=== PATIENT | female | born 1965 | race Caucasian/White ===

== ENCOUNTER 2016-12-30 17:53 | Emergency (ER) | payer SELFPAY ==
[2016-12-30] MEDS ORDERED: LIDOCAINE 1%/EPINEPHRINE INJ 20 ML VIAL INJ ONE (18:40)
[2016-12-30] MEDS ORDERED: DIPH/PERTUSS(ACELL)/TETANUS VAC/PF 0.5 ML SYR (>=10YO) IM ONE (18:40)
[2016-12-30] MEDS ORDERED: HYDROCODONE/ACETAMINOPHEN 5-325 MG TABLET PO ONE (19:23)
--- NOTE | 2016-12-30 19:31 | ER Document Report ---
ED General - General Chief Complaint: Fall Stated Complaint: CHIN LACERATION Time Seen by Provider: 12/30/16 18:22 Notes: 51-year-old female tripped and fell and landed on her chin at home approximately 4 hours prior to arrival. Denies neck pain, loss of consciousness , headache, nausea, vomiting, blurred vision, dizziness or any other alteration in mental status. Now complains of moderate throbbing pain to her chin. Took one half of a 5 mg Dittmer prior to arrival. Admits to history of right shoulder fracture 1 month ago, denies any change to her right shoulder pain. She does take Xarelto, is concerned by how much her chin bled, states that there was a large amount of blood on the bed after she laid down. States the blood has stopped now. Last tetanus shot was greater than 5 years ago, she does not remember exactly when. TRAVEL OUTSIDE OF THE [place] IN LAST 30 DAYS: Yes - Related Data Allergies/Adverse Reactions: No Known Allergies Allergy (Verified 12/30/16 17:56) Past Medical History - General Information source: Patient - Social History Smoking Status: Never Smoker Chew tobacco use (# tins/day): No Frequency of alcohol use: Daily Drug Abuse: None Lives with: Alone Family History: Reviewed & Not Pertinent - Past Medical History Cardiac Medical History: Reports: Hx DVT - Left Denies: Hx Coronary Artery Disease, Hx Heart Attack, Hx Hypertension Pulmonary Medical History: Denies: Hx Asthma, Hx Bronchitis, Hx COPD, Hx Pneumonia, Hx Tuberculosis Neurological Medical History: Denies: Hx Cerebrovascular Accident, Hx Seizures Renal/ Medical History: Reports: Hx Ovarian Cysts - Currently Occuring Musculoskeltal Medical History: Reports Hx Arthritis - Hips R the worst Past Surgical History: Reports: Hx Bowel Surgery - gastric bypass, Hx Section - x2, Hx Gastric Bypass Surgery, Hx Gynecologic Surgery - DNC, Hx Herniorrhaphy, Hx Tonsillectomy. Denies: Hx Hysterectomy, Hx Pacemaker - Immunizations Hx Diphtheria, Pertussis, Tetanus Vaccination: No Review of Systems - Review of Systems Constitutional: Chills EENT: No symptoms reported Skin: See HPI - Chin laceration -: Yes All other systems reviewed and negative Physical Exam - Vital signs Vitals: Temp Pulse Resp BP Pulse Ox 97.6 F 115 H 32 H 129/95 H 97 12/30/16 17:56 12/30/16 17:56 12/30/16 17:56 12/30/16 17:56 12/30/16 17:56 Interpretation: Tachycardic, Tachypneic - Notes Notes: GENERAL: Alert, shaking, appears anxious, states that she is cold and nervous. HEAD: 3 cm laceration to her chin, gaping but linear. EYES: Pupils equal, round and reactive to light, extraocular movements intact. ENT: Oral mucosa moist, tongue midline. NECK: Full range of motion, supple, trachea midline. No midline bony tenderness to palpation. LUNGS: no respiratory distress. EXTREMITIES: No cyanosis. NEUROLOGICAL: Alert and oriented x3, cranial nerves II through XII grossly intact. PSYCH: Normal mood, normal affect. SKIN: Warm, Dry Course - Re-evaluation Re-evalutation: 12/30/16 20:03 Patient initially denying any dizziness or headache, now complaining of dizziness and headache as well as continuing pain in her right shoulder. Continues to deny any change in her right shoulder pain from baseline. I did give patient a Dittmer 5/325 which is what she usually takes at home for her right shoulder injury that is a month old and currently being followed by [facility]. Given the dizziness and headache, the fact that she hit her head and is on Xarelto patient will have a CAT scan of the head performed. Tetanus status will be updated and chin laceration has been repaired without difficulty. 12/30/16 22:10 Patient now vomiting, consistent with concussion, CT scan of head is negative for any bleeding. There is a nasal bone fracture that when the patient is informed of this patient states this is old and she knew about it, it is approximately 1 month old. No change in her neurologic exam, no concern for bleed that has developed after the CAT scan was performed about an hour ago. Patient will be treated with Zofran and discharged home. Counseled about avoiding sedating medications. - Vital Signs Vital signs: Temp Pulse Resp BP Pulse Ox 97.6 F 115 H 32 H 129/95 H 97 12/30/16 17:56 12/30/16 17:56 12/30/16 17:56 12/30/16 17:56 12/30/16 17:56 - Laboratory Result Diagrams: 12/30/16 19:30 Laboratory results interpreted by me: 12/30/16 19:30 RBC 5.50 H MCH 25.9 L RDW 19.7 H Monocytes % 14.8 H Procedures - Laceration/Wound Repair chin Time completed: 19:45 Wound length (cm): 4 Wound's Depth, Shape: Superficial, Linear Laceration pre-procedure: Sterile PPE donned, Sterile drapes applied, Shur- Clens applied Anesthetic type: 1% Lidocaine w/epi Volume Anesthetic (mLs): 3 Wound explored: Clean, No foreign body removed Wound Debrided: Minimal Wound Repaired With: Sutures Suture Size/Type: 5:0, Ethilon Number of Sutures: 3 Layer Closure?: No Post-procedure NV exam normal: Yes Complications: No Discharge - Discharge Clinical Impression: Fall at home Qualifiers: Encounter type: initial encounter Qualified Code(s): W19.XXXA - Unspecified fall, initial encounter; Y92.099 - Unspecified place in other non-institutional residence as the place of occurrence of the external cause; Y92.099 - Unspecified place in other non-institutional residence as the place of occurrence of the external cause Chin laceration Qualifiers: Encounter type: initial encounter Qualified Code(s): S01.81XA - Laceration without foreign body of other part of head, initial encounter Nasal bones, closed fracture Qualifiers: Encounter type: subsequent encounter Fracture healing: with delayed healing Qualified Code(s): S02.2XXG - Fracture of nasal bones, subsequent encounter for fracture with delayed healing Hypertension Qualifiers: Hypertension type: essential hypertension Qualified Code(s): I10 - Essential ( primary) hypertension Condition: Stable Disposition: HOME, SELF-CARE Instructions: Laceration Care ([facility]), Head Injury Precautions ([facility]) Additional Instructions: Have the stitches removed in approximately 5 days. Forms: Elevated Blood Pressure Referrals: YOMAIRA GOODRICH MD [ACTIVE STAFF] - Follow up in 3-5 days
[2016-12-30 19:56] LABS: ABSOLUTE LYMPHOCYTES (AUTO) 1.5 10^3/uL (0.5-4.7); ABSOLUTE MONOCYTES (AUTO) 0.8 10^3/uL (0.1-1.4); ABSOLUTE NEUT (AUTO) 3.4 10^3/uL (1.7-8.2); BASOPHILS % (AUTO) 0.5 % (0-2); EOSINOPHILS % (AUTO) 0.1 % (0-6); HEMATOCRIT 44.3 % (36.0-47.0); HEMOGLOBIN 14.3 g/dL (12.0-15.5); HGB HCT DIFFERENCE -1.4; LYMPHOCYTES % (AUTO) 25.4 % (13-45); MEAN CORPUSCULAR HEMOGLOBIN 25.9 pg (27.0-33.4); MEAN CORPUSCULAR HGB CONC 32.2 g/dL (32.0-36.0); MEAN CORPUSCULAR VOLUME 81 fl (80-97); MONOCYTES % (AUTO) 14.8 % (3-13); RED CELL DISTRIBUTION WIDTH 19.7 % (11.5-14.0); SEGMENTED NEUTROPHILS % (AUTO) 59.2 % (42-78); WHITE BLOOD COUNT 5.7 10^3/uL (4.0-10.5)
--- NOTE | 2016-12-30 21:26 | RADIOLOGY REPORT (SQ) ---
EXAM DESCRIPTION: CT HEAD WITHOUT COMPLETED DATE/TIME: 12/30/2016 8:53 pm REASON FOR STUDY: fell, hit head on xarelto, dizzy COMPARISON: CT brain 02/22/2014 TECHNIQUE: Axial images acquired through the brain without intravenous contrast. Images reviewed wi th bone, brain and subdural windows. Images stored on PACS. All CT scanners at this facility use dose modulation, iterative reconstruction, and/or weight based d osing when appropriate to reduce radiation dose to as low as reasonably achievable (ALARA). [facility]: Dose Right [facility]: CareDose [facility]: Dose Right [facility]: Teradose 4D [facility]: Smart Rormix RADIATION DOSE: CT Rad equipment meets quality standard of care and radiation dose reduction techniq ues were employed. CTDIvol: 64.6 mGy. DLP: 1163 mGy-cm. mGy. LIMITATIONS: None. FINDINGS: VENTRICLES: Normal size and contour. CEREBRUM: No masses. No hemorrhage. No midline shift. No evidence for acute infarction. Normal gra y/white matter differentiation. No areas of low density in the white matter. CEREBELLUM: No masses. No hemorrhage. No alteration of density. No evidence for acute infarction. EXTRAAXIAL SPACES: No fluid collections. No masses. ORBITS AND GLOBE: No intra- or extraconal masses. Normal contour of globe without masses. CALVARIUM: No fracture. PARANASAL SINUSES: No fluid or mucosal thickening. SOFT TISSUES: Minimal left parietal scalp hematoma without underlying skull fracture or acute intracr anial hemorrhage. OTHER: Bilateral nasal bone fractures are present on axial images 9 and 10. IMPRESSION: Bilateral nasal bone fractures. No acute intracranial changes. EVIDENCE OF ACUTE STROKE: NO. COMMENT: Quality ID # [id number]: Final reports with documentation of one or more dose reduction techniques (e.g., Automated exposure control, adjustment of the mA and/or kV according to patient size, use of iterative reconstruction technique) TECHNICAL DOCUMENTATION: JOB ID: [id number] [employer]- All Rights Reserved
[2016-12-30] MEDS ORDERED: ONDANSETRON 4 MG TAB.RAPDIS PO ONE (22:10)
[2016-12-30] MEDS ORDERED: ONDANSETRON ODT 4 MG TAB (6 TAB/DSPK) PO PRN (22:16)
[2016-12-30 22:56] VITALS: BP 142/105
== END 2016-12-30 22:56 | disposition home or self-care (01) ==
LOC: ER 17:53
PROC: 0HQ1XZZ Repair Face Skin, External Approach (ICD-10-PCS; principal; 2016-12-30)
DX: S02.2XXG Fracture of nasal bones, subsequent encounter for fracture with delayed healing (principal); S01.81XA Laceration without foreign body of other part of head, initial encounter; I10 Essential (primary) hypertension; Z79.01 Long term (current) use of anticoagulants; W19.XXXA Unspecified fall, initial encounter; Y92.099 Unspecified place in other non-institutional residence as the place of occurrence of the external cause
CPT/HCPCS: 99284; 90471; 36415; 85025; 70450; 90715; 12013; S0119; J3490

== ENCOUNTER 2018-02-11 16:47 | Emergency (ER) | payer SELFPAY ==
[2018-02-11] MEDS ORDERED: NORMAL SALINE 1000 ML 1,000 ML IV ONE (17:46)
[2018-02-11] MEDS ORDERED: FENTANYL CITRATE INJ/PF 100 MCG/2 ML AMPUL IV ONE (17:47)
[2018-02-11] MEDS ORDERED: ONDANSETRON HCL INJ/PF 4 MG/2 ML SDV IV ONE (17:47)
--- NOTE | 2018-02-11 17:48 | ER Document Report ---
ED Medical Screen (RME) - General Chief Complaint: Abdominal Pain Stated Complaint: VOMITING Time Seen by Provider: 02/11/18 17:46 TRAVEL OUTSIDE OF THE [place] IN LAST 30 DAYS: No - Related Data Allergies/Adverse Reactions: No Known Allergies Allergy (Verified 02/11/18 16:47) Past Medical History - Past Medical History Cardiac Medical History: Reports: Hx DVT - Left Denies: Hx Coronary Artery Disease, Hx Heart Attack, Hx Hypertension Pulmonary Medical History: Denies: Hx Asthma, Hx Bronchitis, Hx COPD, Hx Pneumonia, Hx Tuberculosis Neurological Medical History: Denies: Hx Cerebrovascular Accident, Hx Seizures Renal/ Medical History: Reports: Hx Ovarian Cysts - Currently Occuring. Denies: Hx Peritoneal Dialysis Musculoskeltal Medical History: Reports Hx Arthritis - Hips R the worst Past Surgical History: Reports: Hx Bowel Surgery - gastric bypass, Hx Section - x2, Hx Gastric Bypass Surgery, Hx Gynecologic Surgery - DNC, Hx Herniorrhaphy, Hx Tonsillectomy. Denies: Hx Hysterectomy, Hx Pacemaker - Immunizations Hx Diphtheria, Pertussis, Tetanus Vaccination: No Physical Exam - Vital signs Vitals: Temp Pulse Resp BP Pulse Ox 98.6 F 101 H 22 H 186/110 H 97 02/11/18 17:00 02/11/18 17:00 02/11/18 17:00 02/11/18 17:00 02/11/18 17:00 Course - Re-evaluation Re-evalutation: 02/11/18 17:48 52-year-old status post gastric bypass with intractable vomiting horrible abdominal pain making it unable to her tolerate her normal antacids. I have seen and evaluated this patient in rapid medical screening exam, there will require reexamination and further assessment with possible diagnostics and disposition determination by secondary provider. - Vital Signs Vital signs: Temp Pulse Resp BP Pulse Ox 98.6 F 101 H 22 H 156/102 H 97 02/11/18 17:00 02/11/18 17:00 02/11/18 17:00 02/11/18 17:05 02/11/18 17:00
[2018-02-11] MEDS ORDERED: FAMOTIDINE INJ/PF 20 MG/2 ML SDV IV ONE (18:22)
[2018-02-11] MEDS ORDERED: MORPHINE SULFATE 10 MG/ML INJ IV PRN (18:54)
--- NOTE | 2018-02-11 18:54 | RADIOLOGY REPORT (SQ) ---
EXAM DESCRIPTION: ACUTE ABDOMEN SERIES COMPLETED DATE/TIME: 02/11/2018 6:45 pm REASON FOR STUDY: possible obstruction COMPARISON: None. NUMBER OF VIEWS: Three views. TECHNIQUE: Frontal chest, supine abdomen and upright/decubitus abdomen radiographic images acquired. LIMITATIONS: None. FINDINGS: CHEST: Lungs clear of infiltrates. FREE AIR: None. No abnormal gas collections. BOWEL GAS PATTERN: Nonobstructive pattern. No dilated loops or air fluid levels. CALCIFICATIONS: No suspicious calcifications. HARDWARE: Status post bilateral hip total arthroplasty. SOFT TISSUES: No gross mass or suggestion of organomegaly. BONES: No acute fracture. No worrisome bone lesions. OTHER: IVC filter. Left iliac vascular stent IMPRESSION: Nonobstructive pattern of bowel gas with scattered gas present to the descending colon. No free air in the abdomen. TECHNICAL DOCUMENTATION: JOB ID: [id number] [employer]- All Rights Reserved Reading location - IP/workstation name: [email or web address]
[2018-02-11] MEDS ORDERED: METOCLOPRAMIDE HCL INJ/PF 10 MG/2 ML SDV IV ONE (18:55)
[2018-02-11] MEDS ORDERED: SUCRALFATE 1 GM TABLET PO ONE (18:55)
[2018-02-11] MEDS ORDERED: LIDOCAINE 2% VISCOUS SOLN 20 ML UDCUP PO ONE (18:55)
[2018-02-11] MEDS ORDERED: MAG HYDROX/AL HYDROX/SIMETH SUSP 30 ML UDCUP PO ONE (18:55)
--- NOTE | 2018-02-11 19:01 | ER Document Report ---
ED General - General Chief Complaint: Abdominal Pain Stated Complaint: VOMITING Time Seen by Provider: 02/11/18 17:46 Notes: Patient is a 52-year-old female with a past medical history of morbid obesity, gastric bypass with a history of gastric ulcers, presents with 2 days of epigastric abdominal pain, nausea and vomiting. Patient reports that she is supposed to be taking pantoprazole twice daily and has been out of this medication for the past 2 months. She states this feels very similar to when she has had exacerbations of her gastritis in the past. She is very clear to state that she has not had any hematemesis, melena or hematochezia. The pain is described as an aching, burning, constant pain in the upper abdomen. Worsened by any attempt at eating or drinking. She states that she has vomited virtually everything she has attempted to consume in the past 48 hours. She has not contacted her primary care physician regarding today's concerns. She denies fever, chest pain or shortness of breath. TRAVEL OUTSIDE OF THE [place] IN LAST 30 DAYS: No - Related Data Allergies/Adverse Reactions: No Known Allergies Allergy (Verified 02/11/18 16:47) Past Medical History - General Information source: Patient - Social History Smoking Status: Former Smoker Frequency of alcohol use: None Drug Abuse: None Lives with: Family Family History: Reviewed & Not Pertinent Patient has suicidal ideation: No Patient has homicidal ideation: No - Past Medical History Cardiac Medical History: Reports: Hx DVT - Left Denies: Hx Coronary Artery Disease, Hx Heart Attack, Hx Hypertension Pulmonary Medical History: Denies: Hx Asthma, Hx Bronchitis, Hx COPD, Hx Pneumonia, Hx Tuberculosis Neurological Medical History: Denies: Hx Cerebrovascular Accident, Hx Seizures Renal/ Medical History: Reports: Hx Ovarian Cysts - Currently Occuring. Denies: Hx Peritoneal Dialysis Musculoskeletal Medical History: Reports Hx Arthritis - Hips R the worst Past Surgical History: Reports: Hx Bowel Surgery - gastric bypass, Hx Section - x2, Hx Gastric Bypass Surgery, Hx Gynecologic Surgery - DNC, Hx Herniorrhaphy, Hx Tonsillectomy. Denies: Hx Hysterectomy, Hx Pacemaker - Immunizations Hx Diphtheria, Pertussis, Tetanus Vaccination: No Review of Systems - Review of Systems Notes: Constitutional: Negative for fever. HENT: Negative for sore throat. Eyes: Negative for visual changes. Cardiovascular: Negative for chest pain. Respiratory: Negative for shortness of breath. Gastrointestinal: Positive for epigastric abdominal pain and vomiting Genitourinary: Negative for dysuria. Musculoskeletal: Negative for back pain. Skin: Negative for rash. Neurological: Negative for headaches, weakness or numbness. 10 point ROS negative except as marked above and in HPI. Physical Exam - Vital signs Vitals: Temp Pulse Resp BP Pulse Ox 98.6 F 101 H 22 H 186/110 H 97 02/11/18 17:00 02/11/18 17:00 02/11/18 17:00 02/11/18 17:00 02/11/18 17:00 Interpretation: Hypertensive, Tachycardic Notes: PHYSICAL EXAMINATION: GENERAL: Appears uncomfortable but in no acute distress HEAD: Atraumatic, normocephalic. EYES: Pupils equal round and reactive to light, extraocular movements intact, sclera anicteric, conjunctiva are normal. ENT: nares patent, oropharynx clear without exudates. Moderately dry mucous membranes. NECK: Normal range of motion, supple without lymphadenopathy LUNGS: Breath sounds clear to auscultation bilaterally and equal. No wheezes rales or rhonchi. HEART: Regular rate and rhythm without murmurs ABDOMEN: Soft, focal tenderness to the epigastrium but no other localized areas of tenderness, normoactive bowel sounds. No guarding, no rebound. No masses appreciated. EXTREMITIES: Normal range of motion, no pitting or edema. No cyanosis. NEUROLOGICAL: No focal neurological deficits. Moves all extremities spontaneously and on command. PSYCH: Normal mood, normal affect. SKIN: Warm, Dry, normal turgor, no rashes or lesions noted. Course - Re-evaluation Re-evalutation: 02/11/18 19:00 Patient presents with epigastric abdominal pain with associated reflux symptoms most consistent with likely gastritis. Patient has a long-standing history of the same, has been off of her prescribed pantoprazole for over 2 months and has had similar presentations multiple times in the past by her own report. She has minimal epigastric abdominal tenderness on exam, no generalized tenderness, protuberance or guarding. Acute abdominal series without any evidence of perforation. Clinical history is not consistent with biliary pathology. Lipase is normal. No LFT changes. Based on history and exam, I do not suspect ACS, pulmonary embolus, SBO, mesenteric ischemia, acute pancreatitis, biliary pathology, or an abdominal aortic dissection. Will continue to treat the patient's pain and ensure that she is able to tolerate oral intake 02/11/18 21:35 Patient has had complete resolution of abdominal pain and vomiting. She is able to tolerate oral fluids without any difficulty recurrent vomiting. Repeat abdominal exam remains benign. Labs unremarkable. At this time will discharge with return precautions and follow-up recommendations. Verbal discharge instructions given a the bedside and opportunity for questions given. Medication warnings reviewed. Patient is in agreement with this plan and has verbalized un derstanding of return precautions and the need for primary care follow-up in the next 24-72 hours. - Vital Signs Vital signs: Temp Pulse Resp BP Pulse Ox 98.6 F 101 H 18 166/114 H 100 02/11/18 17:00 02/11/18 17:00 02/11/18 18:25 02/11/18 18:25 02/11/18 18:25 - Laboratory Result Diagrams: 02/11/18 19:17 02/11/18 20:35 Laboratory results interpreted by me: 02/11/18 02/11/18 19:17 20:35 WBC 10.7 H MCV 98 H RDW 18.0 H Seg Neutrophils % 88.7 H Lymphocytes % 5.6 L Absolute Neutrophils 9.5 H Glucose 112 H Total Bilirubin 1.5 H Direct Bilirubin 0.5 H Alkaline Phosphatase 215 H Lipase 338.3 H - Diagnostic Test Radiology reviewed: Image reviewed, Reports reviewed Radiology results interpreted by me: 02/11/18 21:36 Acute abdominal series, no evidence of free air or obstruction Discharge - Discharge Clinical Impression: Epigastric abdominal pain Gastritis Qualifiers: Gastritis type: unspecified gastritis Chronicity: acute Gastritis bleeding: without bleeding Qualified Code(s): K29.00 - Acute gastritis without bleeding Nausea & vomiting Qualifiers: Vomiting type: unspecified Vomiting Intractability: intractable Qualified Code(s): R11.2 - Nausea with vomiting, unspecified Condition: Good Disposition: HOME, SELF-CARE Additional Instructions: Your symptoms appear to be most consistent with stomach or upper intestinal irritation. Please begin taking your pantoprazole again as previously prescribed as well as Carafate prior to meals. You may take the Zofran that has been prescribed as needed for nausea or vomiting. You may also take medicine such as Pepto-Bismol or Tums to assist with your pain. Please return to emergency department immediately if you have worsening of your pain, shortness of breath, vomiting, become unable to exert yourself due to pain or difficulty breathing, you pass out, or have any pain that radiates into your arms, jaw, or back. Please also return if you have any additional symptoms that are concerning to you. Prescriptions: Pantoprazole Sodium 40 mg PO BID #60 tablet. Sucralfate [Carafate 1 gm Tablet] 1 gm PO ACHS #120 tablet
[2018-02-11 19:29] LABS: ABSOLUTE LYMPHOCYTES (AUTO) 0.6 10^3/uL (0.5-4.7); ABSOLUTE MONOCYTES (AUTO) 0.6 10^3/uL (0.1-1.4); ABSOLUTE NEUT (AUTO) 9.5 10^3/uL (1.7-8.2); BASOPHILS % (AUTO) 0.4 % (0-2); HEMATOCRIT 43.6 % (36.0-47.0); HEMOGLOBIN 14.9 g/dL (12.0-15.5); LYMPHOCYTES % (AUTO) 5.6 % (13-45); MEAN CORPUSCULAR HEMOGLOBIN 33.4 pg (27.0-33.4); MEAN CORPUSCULAR HGB CONC 34.1 g/dL (32.0-36.0); MEAN CORPUSCULAR VOLUME 98 fl (80-97); MONOCYTES % (AUTO) 5.3 % (3-13); PLATELET COUNT 203 10^3/uL (150-450); RED BLOOD COUNT 4.46 10^6/uL (3.72-5.28); SEGMENTED NEUTROPHILS % (AUTO) 88.7 % (42-78); TOTAL CELLS COUNTED % (AUTO) 100 %; WHITE BLOOD COUNT 10.7 10^3/uL (4.0-10.5)
[2018-02-11 21:13] LABS: ALANINE AMINOTRANSFERASE 23 U/L (9-52); ALBUMIN 4.3 g/dL (3.5-5.0); ALKALINE PHOSPHATASE 215 U/L (38-126); ANION GAP 9 (5-19); ASPARTATE AMINO TRANSFERASE 34 U/L (14-36); BILIRUBIN,DIRECT 0.5 mg/dL (0.0-0.4); BILIRUBIN,TOTAL 1.5 mg/dL (0.2-1.3); BLOOD UREA NITROGEN 17 mg/dL (7-20); CALCIUM 9.9 mg/dL (8.4-10.2); CARBON DIOXIDE 29 mmol/L (22-30); CHLORIDE 105 mmol/L (98-107); GLUCOSE 112 mg/dL (75-110); LIPASE 338.3 U/L (23-300); POTASSIUM 3.9 mmol/L (3.6-5.0); SODIUM 142.9 mmol/L (137-145); TOTAL PROTEIN 7.9 g/dL (6.3-8.2)
[2018-02-11 23:13] VITALS: BP 180/118
== END 2018-02-11 23:31 | disposition home or self-care (01) ==
LOC: ER 16:47
DX: K29.00 Acute gastritis without bleeding (principal); R10.13 Epigastric pain; R11.2 Nausea with vomiting, unspecified; Z87.891 Personal history of nicotine dependence
CPT/HCPCS: 99284; 96361; 96374; 96375; 36415; 83690; 85025; 80053; 84484; 74022; J3010; J3490; J2765; J2270; J2405; J7030; S0028

== ENCOUNTER 2018-02-13 21:42 | Emergency (ER) | payer SELFPAY ==
[2018-02-13] MEDS ORDERED: ONDANSETRON HCL INJ/PF 4 MG/2 ML SDV IV ONE (23:30)
[2018-02-13] MEDS ORDERED: MORPHINE SULFATE 10 MG/ML INJ IV ONE (23:33)
[2018-02-13] MEDS ORDERED: SUCRALFATE SUSP 1 GM/10 ML UDCUP PO ONE (23:33)
[2018-02-13] MEDS ORDERED: FAMOTIDINE INJ/PF 20 MG/2 ML SDV IV ONE (23:33)
--- NOTE | 2018-02-13 23:36 | ER Document Report ---
ED Medical Screen (RME) - General Chief Complaint: Nausea/Vomiting Stated Complaint: VOMITING Time Seen by Provider: 02/13/18 23:29 Notes: Patient is a 52-year-old female presents the emergency department complaining of left upper quadrant abdominal pain and vomiting more than 20 times today. Patient is denying any blood in her vomit. Patient states she was seen at this facility 2 days ago for same left upper quadrant pain and vomiting. Patient states she has an extensive history of stomach ulcers and gastritis. States she is supposed to be on medication for her ulcers but has not been taking it in the last 2 months. Patient states she did not get her medications filled that were prescribed to her 2 days ago. Past medical history: Gastric ulcer Medications: Currently none Allergies: None Physical examination: Generalized left upper quadrant pain upon palpation, no right upper quadrant pain, no McBurney's point tenderness. No CVA tenderness bilaterally. I have greeted and performed a rapid initial assessment of this patient. A comprehensive ED assessment and evaluation of the patient, analysis of test results and completion of the medical decision making process will be conducted by additional ED providers. TRAVEL OUTSIDE OF THE [place] IN LAST 30 DAYS: No - Related Data Allergies/Adverse Reactions: No Known Allergies Allergy (Verified 02/11/18 16:47) Past Medical History - Social History Chew tobacco use (# tins/day): No Frequency of alcohol use: None Drug Abuse: None - Past Medical History Cardiac Medical History: Reports: Hx DVT - Left Denies: Hx Coronary Artery Disease, Hx Heart Attack, Hx Hypertension Pulmonary Medical History: Denies: Hx Asthma, Hx Bronchitis, Hx COPD, Hx Pneumonia, Hx Tuberculosis Neurological Medical History: Denies: Hx Cerebrovascular Accident, Hx Seizures Renal/ Medical History: Reports: Hx Ovarian Cysts - Currently Occuring. Denies: Hx Peritoneal Dialysis Musculoskeltal Medical History: Reports Hx Arthritis - Hips R the worst Past Surgical History: Reports: Hx Bowel Surgery - gastric bypass, Hx Section - x2, Hx Gastric Bypass Surgery, Hx Gynecologic Surgery - DNC, Hx Herniorrhaphy, Hx Tonsillectomy. Denies: Hx Hysterectomy, Hx Pacemaker - Immunizations Hx Diphtheria, Pertussis, Tetanus Vaccination: No Physical Exam - Vital signs Vitals: Temp Pulse Resp BP Pulse Ox 98.7 F 93 16 193/115 H 97 02/13/18 21:54 02/13/18 21:54 02/13/18 21:54 02/13/18 21:54 02/13/18 21:54 Course - Vital Signs Vital signs: Temp Pulse Resp BP Pulse Ox 98.7 F 93 16 193/115 H 97 02/13/18 21:54 02/13/18 21:54 02/13/18 21:54 02/13/18 21:54 02/13/18 21:54
[2018-02-14 00:21] LABS: ABSOLUTE BASOPHILS # (AUTO) 0.1 10^3/uL (0.0-0.2); ABSOLUTE MONOCYTES (AUTO) 0.7 10^3/uL (0.1-1.4); ABSOLUTE NEUT (AUTO) 10.3 10^3/uL (1.7-8.2); BASOPHILS % (AUTO) 0.4 % (0-2); EOSINOPHILS % (AUTO) 0.1 % (0-6); HEMATOCRIT 50.1 % (36.0-47.0); LYMPHOCYTES % (AUTO) 8.1 % (13-45); MEAN CORPUSCULAR HEMOGLOBIN 33.9 pg (27.0-33.4); MEAN CORPUSCULAR HGB CONC 34.2 g/dL (32.0-36.0); MEAN CORPUSCULAR VOLUME 99 fl (80-97); MONOCYTES % (AUTO) 5.6 % (3-13); PLATELET COUNT 291 10^3/uL (150-450); RED BLOOD COUNT 5.06 10^6/uL (3.72-5.28); RED CELL DISTRIBUTION WIDTH 17.8 % (11.5-14.0); SEGMENTED NEUTROPHILS % (AUTO) 85.8 % (42-78); TOTAL CELLS COUNTED % (AUTO) 100 %
[2018-02-14 00:22] LABS: HEMOGLOBIN 17.1 g/dL (12.0-15.5)
[2018-02-14] MEDS ORDERED: HYDROMORPHONE HCL INJ/PF 2 MG/ML AMPULE IV ONE (01:09)
--- NOTE | 2018-02-14 01:10 | ER Document Report ---
ED GI/ - General Chief Complaint: Nausea/Vomiting Stated Complaint: VOMITING Time Seen by Provider: 02/13/18 23:29 Notes: Patient is a 52-year-old female that comes to the emergency department for chief complaint of nausea, vomiting, upper abdominal pain. She was seen 2 days ago, she states that yesterday she actually was feeling much improved, she was eating normally, however she states she started to feel nausea again, began vomiting, s he states she did not get a nausea medication. She states after that she had continuous vomiting throughout the day. She denies vomiting blood, black or bloody stools, she states that after medications from triage she feels a lot better. She was prescribed pantoprazole and Carafate, states that she has not been able to fill or start taking them yet before she started vomiting. She denies fever or chills. Past medical history of gastric bypass, peptic ulcer disease. TRAVEL OUTSIDE OF THE [place] IN LAST 30 DAYS: No - Related Data Allergies/Adverse Reactions: No Known Allergies Allergy (Verified 02/11/18 16:47) Past Medical History - General Information source: Patient - Social History Smoking Status: Never Smoker Chew tobacco use (# tins/day): No Frequency of alcohol use: None Drug Abuse: None Lives with: Family Family History: Reviewed & Not Pertinent Patient has suicidal ideation: No Patient has homicidal ideation: No - Past Medical History Cardiac Medical History: Reports: Hx DVT - Left Denies: Hx Coronary Artery Disease, Hx Heart Attack, Hx Hypertension Pulmonary Medical History: Denies: Hx Asthma, Hx Bronchitis, Hx COPD, Hx Pneumonia, Hx Tuberculosis Neurological Medical History: Denies: Hx Cerebrovascular Accident, Hx Seizures Renal/ Medical History: Reports: Hx Ovarian Cysts - Currently Occuring. D enies: Hx Peritoneal Dialysis GI Medical History: Reports: Hx Gastritis, Hx Gastroesophageal Reflux Disease Musculoskeletal Medical History: Reports Hx Arthritis - Hips R the worst Past Surgical History: Reports: Hx Bowel Surgery - gastric bypass, Hx Section - x2, Hx Gastric Bypass Surgery, Hx Gynecologic Surgery - DNC, Hx Herniorrhaphy, Hx Tonsillectomy. Denies: Hx Hysterectomy, Hx Pacemaker - Immunizations Hx Diphtheria, Pertussis, Tetanus Vaccination: No Review of Systems - Review of Systems Constitutional: No symptoms reported EENT: No symptoms reported Cardiovascular: No symptoms reported Respiratory: No symptoms reported Gastrointestinal: See HPI Genitourinary: No symptoms reported Female Genitourinary: No symptoms reported Musculoskeletal: No symptoms reported Skin: No symptoms reported Hematologic/Lymphatic: No symptoms reported Neurological/Psychological: No symptoms reported Physical Exam - Vital signs Vitals: Temp Pulse Resp BP Pulse Ox 98.7 F 93 16 193/115 H 97 02/13/18 21:54 02/13/18 21:54 02/13/18 21:54 02/13/18 21:54 02/13/18 21:54 - Notes Notes: GENERAL: Alert, interacts well. No acute distress. HEAD: Normocephalic, atraumatic. EYES: Pupils equal, round, and reactive to light. Extraocular movements intact. ENT: Oral mucosa very dry, tongue midline. Oropharynx unremarkable. Airway patent. Nares patent, no nasal septal hematoma, TM's intact. NECK: Full range of motion. Supple. Trachea midline. LUNGS: Clear to auscultation bilaterally, no wheezes, rales, or rhonchi. No respiratory distress. HEART: Regular rate and rhythm. No murmur ABDOMEN: Tenderness in the left upper quadrant and epigastric area. Minimal tenderness otherwise. No rigidity or guarding. GENITOURINARY: Deferred EXTREMITIES: Moves all 4 extremities spontaneously. No edema, normal radial and dorsalis pedis pulses bilaterally. No cyanosis. BACK: no cervical, thoracic, lumbar midline tenderness. No saddle anesthesia, normal distal neurovascular exam. NEUROLOGICAL: Alert and oriented x3. Normal speech. [cranial nerves II through XII grossly intact]. PSYCH: Normal affect, normal mood. SKIN: Warm, dry, normal turgor. No rashes or lesions noted. Course - Re-evaluation Re-evalutation: Patient hypertensive, not tachycardic, not febrile. She appears comfortable on my evaluation. She does have tenderness in the epigastric area and left upper quadrant but this is not severe, she does not have rigidity or guarding suggesting perforation of gastric ulcer. She has not had any vomiting or melena. CBC shows leukocytosis, elevated hemoglobin consistent with dehydration, given 2 L normal saline IV. Chemistry hemolyzed twice. Urinalysis suggests infection. Culture placed. Given Rocephin. We will placed on Keflex. On reevaluation after medications and hydration patient states she feels much improved. She tolerated p.o. without any difficulty. She has not had any vomiting since she was here. She states she feels good enough to go home. Chemistry shows no concerning findings except for mildly elevated lipase. I discussed clear fluids followed by bland diet, discussed results in detail. Discussed medications at home. Patient states she has hydrocodone she takes for pain. Is requesting liquid Carafate and Zofran for home. Discussed follow-up and return precautions in detail with patient. Patient states satisfaction and agreement with plan. - Vital Signs Vital signs: Temp Pulse Resp BP Pulse Ox 98.7 F 93 16 193/115 H 97 02/13/18 21:54 02/13/18 21:54 02/13/18 21:54 02/13/18 21:54 02/13/18 21:54 - Laboratory Result Diagrams: 02/13/18 23:48 02/14/18 03:12 Laboratory results interpreted by me: 02/13/18 02/14/18 02/14/18 23:48 02:13 03:12 WBC 12.0 H Hgb 17.1 H D Hct 50.1 H MCV 99 H MCH 33.9 H RDW 17.8 H Seg Neutrophils % 85.8 H Lymphocytes % 8.1 L Absolute Neutrophils 10.3 H Direct Bilirubin 0.5 H Alkaline Phosphatase 190 H Lipase 989.9 H Urine Ketones 20 H Ur Leukocyte Esterase SMALL H Discharge - Discharge Clinical Impression: Dehydration Abdominal pain Qualifiers: Abdominal location: generalized Qualified Code(s): R10.84 - Generalized abdominal pain Vomiting Qualifiers: Vomiting type: unspecified Vomiting Intractability: non-intractable Nausea presence: with nausea Qualified Code(s): R11.2 - Nausea with vomiting, unsp ecified Condition: Stable Disposition: HOME, SELF-CARE Additional Instructions: Your symptoms and examination indicate gastritis/esophagitis (inflammation of your upper gastrointestinal tract). Take Zofran for nausea, take the Carafate and Pepcid as prescribed to help treat this, you can take additional Rolaids, Tums, Maalox, etc. if needed. You can take Tylenol or your hydrocodone for pain. Avoid NSAIDs, alcohol, smoking, caffeine, spicy food. Start with clear fluids, progress to bland diet. Follow-up with primary care for additional evaluation and treatment including possible H. pylori testing. Return if you worsen including uncontrolled vomiting, vomiting blood, black stools, severe pain, fever for 100.4 or greater, or any other concerning or worsening symptoms. Prescriptions: Cephalexin Monohydrate [Keflex 500 mg Capsule] 500 mg PO BID #14 capsule Famotidine [Pepcid 20 mg Tablet] 20 mg PO BID #20 tablet Ondansetron [Zofran Odt 4 mg Tablet] 1 - 2 tab PO Q4H PRN #20 tab.rapdis PRN Reason: For Nausea/Vomiting Sucralfate [Carafate Susp 1 Gm/10 Ml Udcup] 1 gm PO QID 5 Days #1 udc Forms: Elevated Blood Pressure Referrals: GLENN LOREDO MD [Primary Care Provider] - Follow up as needed
[2018-02-14] MEDS: NORMAL SALINE 1000 ML 1,000 ML IV PRN ×2 (01:23→03:35)
[2018-02-14 02:51] LABS: APPEARANCE,URINE SLIGHTLY-CLOUDY; BILIRUBIN,URINE NEGATIVE (NEGATIVE); COLOR,URINE YELLOW; GLUCOSE, URINE NEGATIVE (NEGATIVE); KETONES,URINE 20 mg/dL (NEGATIVE); LEUKOCYTE ESTERASE,URINE SMALL (NEGATIVE); NITRITE,URINE NEGATIVE (NEGATIVE); PROTEIN,URINE NEGATIVE (NEGATIVE); UROBILINOGEN,URINE NEGATIVE mg/dL (<2.0)
[2018-02-14] MEDS ORDERED: OXYCODONE-ACETAMINOPHEN 5-325 MG TABLET PO ONE (03:23)
[2018-02-14] MEDS ORDERED: FAMOTIDINE 20 MG TABLET PO ONE (03:23)
[2018-02-14] MEDS ORDERED: CEFTRIAXONE 1 GM/D5W RTU 1 GM/50 ML RTUPB IV ONE (03:23)
[2018-02-14] MEDS ORDERED: PROMETHAZINE HCL 25 MG TABLET PO ONE (03:23)
[2018-02-14 03:39] LABS: ALANINE AMINOTRANSFERASE 21 U/L (9-52); ALBUMIN 4.4 g/dL (3.5-5.0); ALKALINE PHOSPHATASE 190 U/L (38-126); ANION GAP 13 (5-19); ASPARTATE AMINO TRANSFERASE 36 U/L (14-36); BILIRUBIN,DIRECT 0.5 mg/dL (0.0-0.4); BILIRUBIN,TOTAL 1.2 mg/dL (0.2-1.3); BLOOD UREA NITROGEN 17 mg/dL (7-20); CARBON DIOXIDE 22 mmol/L (22-30); CHLORIDE 106 mmol/L (98-107); GLUCOSE 80 mg/dL (75-110); LIPASE 989.9 U/L (23-300); POTASSIUM 3.9 mmol/L (3.6-5.0); SODIUM 141.4 mmol/L (137-145); TOTAL PROTEIN 8.1 g/dL (6.3-8.2)
[2018-02-14] MEDS ORDERED: ONDANSETRON ODT 4 MG TAB (6 TAB/ER DISP) PO PRN (04:13)
[2018-02-14] MEDS ORDERED: HYDROMORPHONE HCL INJ/PF 2 MG/ML AMPULE IM ONE (04:14)
[2018-02-14 05:25] VITALS: BP 155/103
== END 2018-02-14 05:27 | disposition home or self-care (01) ==
LOC: ER 21:42
DX: R10.84 Generalized abdominal pain (principal); E86.0 Dehydration; R11.2 Nausea with vomiting, unspecified; R10.10 Upper abdominal pain, unspecified
CPT/HCPCS: 99283; 96372; 96361; 96375; 96365; 36415; 83690; 85025; 80053; 81001; J2270; J1170; J2405; J7030; S0028; J0696

== ENCOUNTER 2018-08-11 17:30 | Emergency (ER) | payer SELFPAY ==
--- NOTE | 2018-08-11 20:04 | ER Document Report ---
ED Medical Screen (RME) - General Chief Complaint: Rib Pain Stated Complaint: RIB PAIN Time Seen by Provider: 08/11/18 19:14 Mode of Arrival: Ambulatory Information source: Patient Notes: Patient is a 53-year-old female presented to the emergency room chief complaint of right lateral rib pain. Patient reports approximately 6 days ago she fell down some bleachers striking her side onto some chairs. She is reports severe pain began approximately 2 days later, she denies any shortness of breath but reports increased pain taking a deep breath. Exam: Bilateral lung sounds present equally. Tenderness to palpation along right lateral and anterior ribs. No visible ecchymosis or injury on examination. TRAVEL OUTSIDE OF THE [place] IN LAST 30 DAYS: No - Related Data Allergies/Adverse Reactions: No Known Allergies Allergy (Verified 02/11/18 16:47) Past Medical History - Social History Chew tobacco use (# tins/day): No Frequency of alcohol use: None Drug Abuse: None - Past Medical History Cardiac Medical History: Reports: Hx DVT - Left Denies: Hx Coronary Artery Disease, Hx Heart Attack, Hx Hypertension Pulmonary Medical History: Denies: Hx Asthma, Hx Bronchitis, Hx COPD, Hx Pneumonia, Hx Tuberculosis Neurological Medical History: Denies: Hx Cerebrovascular Accident, Hx Seizures Renal/ Medical History: Reports: Hx Ovarian Cysts - Currently Occuring. Denies: Hx Peritoneal Dialysis GI Medical History: Reports: Hx Gastritis, Hx Gastroesophageal Reflux Disease Musculoskeltal Medical History: Reports Hx Arthritis - Hips R the worst Past Surgical History: Reports: Hx Bowel Surgery - gastric bypass, Hx Section - x2, Hx Gastric Bypass Surgery, Hx Gynecologic Surgery - DNC, Hx Herniorrhaphy, Hx Tonsillectomy. Denies: Hx Hysterectomy, Hx Pacemaker - Immunizations Hx Diphtheria, Pertussis, Tetanus Vaccination: No Physical Exam - Vital signs Vitals: Temp Pulse Resp BP Pulse Ox 98.1 F 70 22 H 141/96 H 99 08/11/18 17:48 08/11/18 17:48 08/11/18 17:48 08/11/18 17:48 08/11/18 17:48 Course - Vital Signs Vital signs: Temp Pulse Resp BP Pulse Ox 98.1 F 70 22 H 141/96 H 99 08/11/18 17:48 08/11/18 17:48 08/11/18 17:48 08/11/18 17:48 08/11/18 17:48
--- NOTE | 2018-08-11 20:22 | RADIOLOGY REPORT (SQ) ---
EXAM DESCRIPTION: XR RIBS UNILATERAL WITH CHEST COMPLETED DATE/TME: 08/11/2018 19:19 CLINICAL HISTORY: 53 years, Female, eval for rib fx, fall, pain COMPARISON: Prior study from 12/09/2011. NUMBER OF VIEWS: Three TECHNIQUE: Frontal and oblique radiographs of the chest were obtained LIMITATIONS: None. FINDINGS: Cardiac and mediastinal contours are stable. Bandlike opacity is evident about the retrocardiac left lower lobe, likely indicating an area of chronic scar. Lungs are otherwise clear. No pleural effusion or pneumothorax. No definite rib fracture is identified. IMPRESSION: No acute disease. No rib fracture identified. copyright 2010 [facility] [employer]- All Rights Reserved
[2018-08-11] MEDS ORDERED: ONDANSETRON 4 MG TAB.RAPDIS PO ONE (20:53)
[2018-08-11] MEDS ORDERED: HYDROMORPHONE HCL INJ/PF 2 MG/ML AMPULE IM ONE (20:53)
--- NOTE | 2018-08-11 20:54 | ER Document Report ---
ED General - General Chief Complaint: Rib Pain Stated Complaint: RIB PAIN Time Seen by Provider: 08/11/18 19:14 Primary Care Provider: GLENN LOREDO MD [Primary Care Provider] - Follow up as needed Mode of Arrival: Ambulatory Notes: Patient is a 53-year-old female that comes emergency department chief complaint of fall injury and right sided rib pain. She states that last Tuesday she fell when descending a bleacher, she fell between bleacher seats and hit her right ribs on the bleacher. She denies head injury, she denies any other injuries or any other areas of pain. She states that she is taking smaller breaths because it hurts to take a deep breath. She denies fever/chills. She takes aspirin but is on no other blood thinners. Past medical history includes gastric bypass and IVC filter for DVTs. TRAVEL OUTSIDE OF THE [place] IN LAST 30 DAYS: No - Related Data Allergies/Adverse Reactions: No Known Allergies Allergy (Verified 02/11/18 16:47) Past Medical History - General Information source: Patient - Social History Smoking Status: Former Smoker Chew tobacco use (# tins/day): No Frequency of alcohol use: None Drug Abuse: None Lives with: Family Family History: Reviewed & Not Pertinent Patient has suicidal ideation: No Patient has homicidal ideation: No - Past Medical History Cardiac Medical History: Reports: Hx DVT - Left Denies: Hx Coronary Artery Disease, Hx Heart Attack, Hx Hypertension Pulmonary Medical History: Denies: Hx Asthma, Hx Bronchitis, Hx COPD, Hx Pneumonia, Hx Tuberculosis Neurological Medical History: Denies: Hx Cerebrovascular Accident, Hx Seizures Renal/ Medical History: Reports: Hx Ovarian Cysts - Currently Occuring. Denies: Hx Peritoneal Dialysis GI Medical History: Reports: Hx Gastritis, Hx Gastroesophageal Reflux Disease Musculoskeletal Medical History: Reports Hx Arthritis - Hips R the worst Past Surgical History: Reports: Hx Bowel Surgery - gastric bypass, Hx Section - x2, Hx Gastric Bypass Surgery, Hx Gynecologic Surgery - DNC, Hx Herniorrhaphy, Hx Tonsillectomy. Denies: Hx Hysterectomy, Hx Pacemaker - Immunizations Hx Diphtheria, Pertussis, Tetanus Vaccination: No Review of Systems - Review of Systems Constitutional: No symptoms reported EENT: No symptoms reported Cardiovascular: No symptoms reported Respiratory: See HPI Gastrointestinal: No symptoms reported Genitourinary: No symptoms reported Female Genitourinary: No symptoms reported Musculoskeletal: See HPI Skin: No symptoms reported Hematologic/Lymphatic: No symptoms reported Neurological/Psychological: No symptoms reported Physical Exam - Vital signs Vitals: Temp Pulse Resp BP Pulse Ox 98.1 F 70 22 H 141/96 H 99 08/11/18 17:48 08/11/18 17:48 08/11/18 17:48 08/11/18 17:48 08/11/18 17:48 - Notes Notes: GENERAL: Alert, interacts well. No acute distress. HEAD: Normocephalic, atraumatic. EYES: Pupils equal, round, and reactive to light. Extraocular movements intact. ENT: Oral mucosa moist, tongue midline. Oropharynx unremarkable. Airway patent. Nares patent, no nasal septal hematoma, TM's intact. NECK: Full range of motion. Supple. Trachea midline. LUNGS: Clear to auscultation bilaterally, no wheezes, rales, or rhonchi. No respiratory distress. There is tenderness along the right lateral ribs which is reproducible. There is no crepitus, swelling, bruising, or other abnormality noted over this area. HEART: Regular rate and rhythm. No murmur ABDOMEN: Soft, non-tender. Non-distended. Bowel sounds present in all 4 quadrants. GENITOURINARY: Deferred EXTREMITIES: Moves all 4 extremities spontaneously. No edema, normal radial and dorsalis pedis pulses bilaterally. No cyanosis. BACK: no cervical, thoracic, lumbar midline tenderness. No saddle anesthesia, normal distal neurovascular exam. Moves all extremities in full range of motion. NEUROLOGICAL: Alert and oriented x3. Normal speech. Cranial nerves II through XII grossly intact. PSYCH: Normal affect, normal mood. SKIN: Warm, dry, normal turgor. No rashes or lesions noted. Course - Re-evaluation Re-evalutation: Patient is alert, well-appearing, has normal respirations, clear lungs, no hypoxia, no signs of distress. She has tenderness over the right ribs suggesting rib contusion but there is no sign of significant trauma in this location or otherwise. X-rays without concerning abnormality. Patient had Lidoderm patch placed, given dose of pain medications, given incentive spirometer, discussed expectations, follow-up, and return precautions. She states understanding and agreement. Stable at time of discharge. - Vital Signs Vital signs: Temp Pulse Resp BP Pulse Ox 97.8 F 77 20 161/93 H 98 08/11/18 21:38 08/11/18 21:38 08/11/18 21:38 08/11/18 21:38 08/11/18 21:38 Discharge - Discharge Clinical Impression: Rib pain on right side Fall Qualifiers: Encounter type: initial encounter Qualified Code(s): W19.XXXA - Unspecified fall, initial encounter Condition: Stable Disposition: HOME, SELF-CARE Additional Instructions: The x-rays do not show pneumonia or fracture. This is most likely contusion/bruising of the ribs, this usually resolves with time. Make sure you use the incentive spirometer several times a day to avoid pneumonia. Continue your medications and muscle relaxers. Follow-up with primary care. See additional instructions below. Rib Contusion You have been diagnosed as having bruised ribs. This usually takes a week or two to improve but can hurt longer. You should cough or take a deep breath at least every hour or two to prevent lung complications. You should not engage in any strenuous physical activity until released by your physician. The usual rule is "if it hurts, don't do it." Return if you develop any of the following: (1) Fever or chills. (2) Persistent cough, coughing up blood, or shortness of breath. (3) Increasing pain. (4) Weakness, lightheadedness, or fainting. Referrals: GLENN LOREDO MD [Primary Care Provider] - Follow up as needed
[2018-08-11] MEDS ORDERED: LIDOCAINE 5% (700 MG) TRANSDERMAL ADH..PATCH TP ONE (21:04)
[2018-08-11 21:56] VITALS: BP 161/93
== END 2018-08-11 21:38 | disposition home or self-care (01) ==
LOC: ER 17:30
DX: R07.81 Pleurodynia (principal); W17.89XA Other fall from one level to another, initial encounter; Z79.82 Long term (current) use of aspirin; Z98.84 Bariatric surgery status; Z87.891 Personal history of nicotine dependence
CPT/HCPCS: 99283; 96372; 71101; S0119; J1170

== ENCOUNTER 2018-09-29 16:39 | Inpatient (IN) | payer SELFPAY ==
[2018-09-29] MEDS ORDERED: PROMETHAZINE HCL 25 MG SUPP.RECT PR ONE (17:37)
[2018-09-29] MEDS ORDERED: PROCHLORPERAZINE EDISYLATE INJ 10 MG/2 ML VIAL IV ONE (17:39)
[2018-09-29] MEDS ORDERED: DIPHENHYDRAMINE HCL 50 MG/ML VIAL IV ONE (17:39)
--- NOTE | 2018-09-29 17:43 | ER Document Report ---
ED Medical Screen (RME) - General Chief Complaint: Abdominal Pain Stated Complaint: ABDOMINAL PAIN Time Seen by Provider: 09/29/18 17:37 Mode of Arrival: Medic Information source: Patient Notes: 53-year-old female presented to ED for left upper quadrant abdominal pain since Tuesday. She states is been waxing and waning and since Tuesday but since today is been pretty bad. She states she did go to her doctor on Tuesday they gave her some nausea medicine but she still continuing to vomit. She has not had any fever or diarrhea. She states she does have lymphedema to both legs for a long time but it is much worse. She states the swelling was down to almost normal but it is much worse at this time. She states she does have a history of arthritis and blood clots in the right leg 3 years ago in the left leg 6 years ago. She is on hydrocodone for her arthritis and she drinks wine daily. She states she states she does have a history of a gastric bypass and they got some of her intestines in the scar tissue which is giving her problems at time. Patient is alert oriented respirations regular and unlabored but she is dry heaving and sometimes getting a little phlegm up while in the emergency room. I have greeted and performed a rapid initial assessment of this patient. A comprehensive ED assessment and evaluation of the patient, analysis of test results and completion of medical decision making process will be conducted by an additional ED providers. TRAVEL OUTSIDE OF THE [place] IN LAST 30 DAYS: No - Related Data Allergies/Adverse Reactions: No Known Allergies Allergy (Verified 02/11/18 16:47) Past Medical History - Social History Chew tobacco use (# tins/day): No Drug Abuse: None - Past Medical History Cardiac Medical History: Reports: Hx DVT - Left Denies: Hx Coronary Artery Disease, Hx Heart Attack, Hx Hypertension Pulmonary Medical History: Denies: Hx Asthma, Hx Bronchitis, Hx COPD, Hx Pneumonia, Hx Tuberculosis Neurological Medical History: Denies: Hx Cerebrovascular Accident, Hx Seizures Renal/ Medical History: Reports: Hx Ovarian Cysts - Currently Occuring. Denie s: Hx Peritoneal Dialysis GI Medical History: Reports: Hx Gastritis, Hx Gastroesophageal Reflux Disease Musculoskeltal Medical History: Reports Hx Arthritis - Hips R the worst Past Surgical History: Reports: Hx Bowel Surgery - gastric bypass, Hx Section - x2, Hx Gastric Bypass Surgery, Hx Gynecologic Surgery - DNC, Hx Herniorrhaphy, Hx Tonsillectomy. Denies: Hx Hysterectomy, Hx Pacemaker - Immunizations Hx Diphtheria, Pertussis, Tetanus Vaccination: No Physical Exam - Vital signs Vitals: Temp Pulse Resp BP Pulse Ox 98.3 F 88 20 141/91 H 98 09/29/18 17:19 09/29/18 17:19 09/29/18 17:19 09/29/18 17:19 09/29/18 17:19 Course - Vital Signs Vital signs: Temp Pulse Resp BP Pulse Ox 98.3 F 88 20 141/91 H 98 09/29/18 17:19 09/29/18 17:19 09/29/18 17:19 09/29/18 17:19 09/29/18 17:19
[2018-09-29 19:06] LABS: ABSOLUTE LYMPHOCYTES (AUTO) 0.9 10^3/uL (0.5-4.7); ABSOLUTE MONOCYTES (AUTO) 0.7 10^3/uL (0.1-1.4); ABSOLUTE NEUT (AUTO) 6.3 10^3/uL (1.7-8.2); BASOPHILS % (AUTO) 0.5 % (0-2); EOSINOPHILS % (AUTO) 0.1 % (0-6); HEMATOCRIT 50.9 % (36.0-47.0); HEMOGLOBIN 17.2 g/dL (12.0-15.5); LYMPHOCYTES % (AUTO) 11.4 % (13-45); MEAN CORPUSCULAR HGB CONC 33.8 g/dL (32.0-36.0); MEAN CORPUSCULAR VOLUME 100 fl (80-97); MONOCYTES % (AUTO) 8.4 % (3-13); PLATELET COUNT 208 10^3/uL (150-450); RED BLOOD COUNT 5.07 10^6/uL (3.72-5.28); RED CELL DISTRIBUTION WIDTH 15.4 % (11.5-14.0); SEGMENTED NEUTROPHILS % (AUTO) 79.6 % (42-78); TOTAL CELLS COUNTED % (AUTO) 100 %; WHITE BLOOD COUNT 7.9 10^3/uL (4.0-10.5)
[2018-09-29 19:31] LABS: ALBUMIN 3.8 g/dL (3.5-5.0); ALKALINE PHOSPHATASE 349 U/L (38-126); ANION GAP 14 (5-19); ASPARTATE AMINO TRANSFERASE 87 U/L (14-36); BILIRUBIN,DIRECT 0.9 mg/dL (0.0-0.4); BILIRUBIN,TOTAL 2.1 mg/dL (0.2-1.3); BLOOD UREA NITROGEN 11 mg/dL (7-20); CALCIUM 9.9 mg/dL (8.4-10.2); CARBON DIOXIDE 25 mmol/L (22-30); CHLORIDE 100 mmol/L (98-107); CREATINE KINASE 31 U/L (30-135); GLUCOSE 92 mg/dL (75-110); POTASSIUM 4.6 mmol/L (3.6-5.0); TOTAL PROTEIN 7.3 g/dL (6.3-8.2)
[2018-09-29] MEDS ORDERED: NORMAL SALINE 1000 ML 1,000 ML IV ONE ×2 (20:18→23:36)
[2018-09-29 20:31] LABS: APPEARANCE,URINE SLIGHTLY-CLOUDY; BILIRUBIN,URINE NEGATIVE (NEGATIVE); COLOR,URINE YELLOW; GLUCOSE, URINE NEGATIVE (NEGATIVE); KETONES,URINE TRACE mg/dL (NEGATIVE); LEUKOCYTE ESTERASE,URINE TRACE (NEGATIVE); NITRITE,URINE NEGATIVE (NEGATIVE); PROTEIN,URINE NEGATIVE (NEGATIVE); URINE SPECIFIC GRAVITY 1.014
[2018-09-29] MEDS ORDERED: SUCRALFATE 1 GM TABLET PO ONE (21:01)
[2018-09-29] MEDS ORDERED: METOCLOPRAMIDE HCL INJ/PF 10 MG/2 ML SDV IV ONE (21:01)
[2018-09-29] MEDS ORDERED: FENTANYL CITRATE INJ/PF 100 MCG/2 ML AMPUL IV ONE (21:02)
[2018-09-29] MEDS ORDERED: PANTOPRAZOLE SODIUM 40 MG VIAL IV ONE (21:02)
[2018-09-29 23:13] LABS: INTERNATIONAL RATION (INR) 1.03; PROTHROMBIN TIME 13.5 SEC (11.4-15.4)
[2018-09-29 23:14] LABS: PARTIAL THROMBOPLASTIN TIME 34.1 SEC (23.5-35.8)
[2018-09-29] MEDS ORDERED: HALOPERIDOL LACTATE INJ 5 MG/1 ML VIAL IV ONE (23:16)
--- NOTE | 2018-09-29 23:18 | RADIOLOGY REPORT (SQ) ---
EXAM DESCRIPTION: US EXTREMITY VEINS BILATERAL COMPLETED DATE/TME: 09/29/2018 17:37 CLINICAL HISTORY: 53 years, Female, swelling hx dvt both legs COMPARISON: None. TECHNIQUE: Transverse and longitudinal sonographic images of the bilateral lower extremity deep venous system LIMITATIONS: None. FINDINGS: There is visible thrombus with lack of compressibility associated with the bilateral common femoral and superficial femoral veins as well as portions of the popliteal veins bilaterally consistent with bilateral deep vein thrombosis. There is lack of normal Doppler images in these regions. IMPRESSION: Findings positive for bilateral lower extremity DVT, as above copyright 2010 [facility] [employer]- All Rights Reserved
[2018-09-29] MEDS ORDERED: ENOXAPARIN SODIUM INJ 120 MG/0.8 ML DISP.SYRIN SUBCUT SCH (23:45)
[2018-09-29] MEDS ORDERED: HYDROMORPHONE HCL INJ/PF 2 MG/ML AMPULE IV ONE (23:57)
[2018-09-30] MEDS ORDERED: ENOXAPARIN SODIUM INJ 120 MG/0.8 ML DISP.SYRIN SUBCUT ONE (00:30)
[2018-09-30] MEDS ORDERED: METOPROLOL TARTRATE PF/INJ 5 MG/5 ML SDV IV ONE ×2 (01:35→01:46)
[2018-09-30] MEDS ORDERED: LORAZEPAM INJ 2 MG/1 ML VIAL ONE (01:36)
--- NOTE | 2018-09-30 01:45 | RADIOLOGY REPORT (SQ) ---
EXAM DESCRIPTION: [facility]: CT CHEST ANGIOGRAPHY WITHOUT THEN WITH IV CONTRAST CLINICAL HISTORY: 53 years Female; tachy BL DVT TECHNIQUE: CT angiogram of the chest using intravenous contrast.. MIP reconstructions were performed. All CT scans at this facility use dose modulation, iterative reconstruction, and/or weight based dosing when appropriate to reduce radiation dose to as low as reasonably achievable. COMPARISON: None. FINDINGS: Chest: No filling defects in the central pulmonary arteries. Vascular markings are slightly prominent and there is minimal mosaic groundglass density, suggesting mild pulmonary edema. Mild dependent atelectasis in the right lower lobe. No pneumothorax or pleural effusion. Thoracic aorta is within normal limits. No aneurysm or dissection. Mediastinum is normal, with no adenopathy or mass. There are several old right rib fractures. Visualized portions of the liver are markedly hypodense, consistent with hepatic steatosis. Numerous partially calcified gallstones are noted. Gastric staple line is noted. No adjacent edema. IMPRESSION: 1. No CT evidence for pulmonary embolism 2. Evidence for mild pulmonary vascular congestion, but no acute pulmonary infiltrates. 3. Hepatomegaly with diffuse hepatic steatosis 4. Cholelithiasis
[2018-09-30] MEDS ORDERED: METOPROLOL TARTRATE 25 MG TABLET PO ONE (01:46)
[2018-09-30] MEDS ORDERED: METOPROLOL SUCCINATE 25 MG TAB.SR.24H PO ONE (01:46)
[2018-09-30] MEDS ORDERED: LORAZEPAM INJ 2 MG/1 ML VIAL IV ONE (01:47)
--- NOTE | 2018-09-30 02:05 | ER Document Report ---
ED General - General Mode of Arrival: Medic TRAVEL OUTSIDE OF THE [place] IN LAST 30 DAYS: No <SUMMER GRAY - Last Filed: 09/30/18 02:16> <JOSE RAMOS - Last Filed: 10/01/18 06:05> - General Chief Complaint: Abdominal Pain Stated Complaint: ABDOMINAL PAIN Time Seen by Provider: 09/29/18 17:37 Notes: RME NOTE: 53-year-old female presented to ED for left upper quadrant abdominal pain since Tuesday. She states is been waxing and waning and since Tuesday but since today is been pretty bad. She states she did go to her doctor on Tuesday they gave her some nausea medicine but she still continuing to vomit. She has not had any fever or diarrhea. She states she does have lymphedema to both legs for a long time but it is much worse. She states the swelling was down to almost normal but it is much worse at this time. She states she does have a history of arthritis and blood clots in the right leg 3 years ago in the left leg 6 years ago. She is on hydrocodone for her arthritis and she drinks wine daily. She states she states she does have a history of a gastric bypass and they got some of her intestines in the scar tissue which is giving her problems at time. Patient is alert oriented respirations regular and unlabored but she is dry heaving and sometimes getting a little phlegm up while in the emergency room. MY HPI: Patient is a 53-year-old female presents to the emergency department chief complaint of left upper abdominal pain, nausea, vomiting. Patient states she was on pantoprazole 40 mg daily for an ulcer she had. States she recently become uninsured and is unable to afford it so she been taking [id number] omeprazole 20 mg daily. Patient was given Zofran IV via EMS. Compazine and Phenergan were ordered by [facility] provider. Patient was also provided with Benadryl. Upon my examination patient continues with left upper abdominal pain as well as continued vomiting. She is denying any blood in her emesis. She is denying any dark, tarry like stools. When discussing patient's lower extremities she states that the swelling had a decreased significantly but then in the last month has increased. States she has generalized pain in bilateral lower extremities more so the left than the right. Patient states when she was at her primary care provider on Tuesday he prescribed her warfarin prophylactic should she be developing DVTs. Patient states she has not started taking it because again she is self-pay and has been unable to afford it. (SUMMER GRAY) - Related Data Allergies/Adverse Reactions: No Known Allergies Allergy (Verified 02/11/18 16:47) Past Medical History - General Information source: Patient - Social History Smoking Status: Never Smoker Chew tobacco use (# tins/day): No Drug Abuse: None Family History: Reviewed & Not Pertinent Patient has suicidal ideation: No Patient has homicidal ideation: No - Past Medical History Cardiac Medical History: Reports: Hx DVT - Left Denies: Hx Coronary Artery Disease, Hx Heart Attack, Hx Hypertension Pulmonary Medical History: Denies: Hx Asthma, Hx Bronchitis, Hx COPD, Hx Pneumonia, Hx Tuberculosis Neurological Medical History: Denies: Hx Cerebrovascular Accident, Hx Seizures Renal/ Medical History: Reports: Hx Ovarian Cysts - Currently Occuring. Denies: Hx Peritoneal Dialysis GI Medical History: Reports: Hx Gastritis, Hx Gastroesophageal Reflux Disease - ulcer Musculoskeletal Medical History: Reports Hx Arthritis - Hips R the worst Past Surgical History: Reports: Hx Bowel Surgery - gastric bypass, Hx Section - x2, Hx Gastric Bypass Surgery, Hx Gynecologic Surgery - DNC, Hx Herniorrhaphy, Hx Tonsillectomy. Denies: Hx Hysterectomy, Hx Pacemaker - Immunizations Hx Diphtheria, Pertussis, Tetanus Vaccination: No <SUMMER GRAY - Last Filed: 09/30/18 02:16> Review of Systems - Review of Systems Constitutional: denies: Fever EENT: No symptoms reported Cardiovascular: No symptoms reported Respiratory: No symptoms reported Gastrointestinal: See HPI Genitourinary: No symptoms reported Female Genitourinary: No symptoms reported Musculoskeletal: No symptoms reported Skin: See HPI Hematologic/Lymphatic: See HPI Neurological/Psychological: No symptoms reported <SUMMER GRAY - Last Filed: 09/30/18 02:16> Physical Exam <SUMMER GRAY - Last Filed: 09/30/18 02:16> - Vital signs Vitals: Temp Pulse Resp BP Pulse Ox 98.3 F 88 20 141/91 H 98 09/29/18 17:19 09/29/18 17:19 09/29/18 17:19 09/29/18 17:19 09/29/18 17:19 - Notes Notes: GENERAL: Alert, interacts well. No acute distress. HEAD: Normocephalic, atraumatic. EYES: Pupils equal, round, and reactive to light. Extraocular movements intact. ENT: Oral mucosa moist, tongue midline. NECK: Full range of motion. Supple. Trachea midline. LUNGS: Clear to auscultation bilaterally, no wheezes, rales, or rhonchi. No respiratory distress. HEART: Regular rate and rhythm. No murmur ABDOMEN: Soft, generalized left upper quadrant abdominal pain noted, no Garcia sign, no McBurney's point tenderness, no left lower abdominal pain noted. Non- distended. Bowel sounds present in all 4 quadrants. EXTREMITIES: Moves all 4 extremities spontaneously. normal radial and dorsalis pedis pulses bilaterally. No cyanosis. Generalized swelling and lymphedema noted bilateral lower extremities. BACK: no cervical, thoracic, lumbar midline tenderness. No saddle anesthesia, normal distal neurovascular exam. NEUROLOGICAL: Alert and oriented x3. Normal speech. cranial nerves II through XII grossly intact. PSYCH: Normal affect, normal mood. SKIN: Warm, dry, normal turgor. (SUMMER GRAY) Course - Laboratory Result Diagrams: 09/29/18 18:57 09/29/18 18:57 <SUMMER GRAY - Last Filed: 09/30/18 02:16> - Laboratory Result Diagrams: 09/29/18 18:57 10/01/18 03:27 - Diagnostic Test Radiology reviewed: Image reviewed, Reports reviewed <JOSE RAMOS - Last Filed: 10/01/18 06:05> - Re-evaluation Re-evalutation: 09/30/18 02:09 Laboratory 09/29/18 09/29/18 09/29/18 18:57 18:57 18:57 WBC 7.9 RBC 5.07 Hgb 17.2 H Hct 50.9 H MCV 100 H MCH 34.0 H MCHC 33.8 RDW 15.4 H Plt Count 208 Lymph % (Auto) 11.4 L [place] % (Auto) 8.4 Eos % (Auto) 0.1 Baso % (Auto) 0.5 Absolute Neuts (auto) 6.3 Absolute Lymphs (auto) 0.9 Absolute Monos (auto) 0.7 Absolute Eos (auto) 0.0 Absolute Basos (auto) 0.0 Seg Neutrophils % 79.6 H PT INR APTT Sodium 138.5 Potassium 4.6 Chloride 100 Carbon Dioxide 25 Anion Gap 14 BUN 11 Creatinine 0.91 Est GFR ( Amer) > 60 Est GFR (MDRD) Non-Af > 60 Glucose 92 Calcium 9.9 Total Bilirubin 2.1 H Direct Bilirubin 0.9 H Neonat Total Bilirubin Not Reportable Neonat Direct Bilirubin Not Reportable Neonat Indirect Bili Not Reportable AST 87 H ALT 47 Alkaline Phosphatase 349 H Creatine Kinase 31 CK-MB (CK-2) 0.54 Total Protein 7.3 Albumin 3.8 Lipase 159.5 Urine Color Urine Appearance Urine pH Ur Specific [place] Urine Protein Urine Glucose (UA) Urine Ketones Urine Blood Urine Nitrite Urine Bilirubin Urine Urobilinogen Ur Leukocyte Esterase Urine WBC (Auto) Urine RBC (Auto) Squamous Epi Cells Auto Urine Mucus (Auto) Urine Ascorbic Acid 09/29/18 09/29/18 18:57 20:15 WBC RBC Hgb Hct MCV MCH MCHC RDW Plt Count Lymph % (Auto) [place] % (Auto) Eos % (Auto) Baso % (Auto) Absolute Neuts (auto) Absolute Lymphs (auto) Absolute Monos (auto) Absolute Eos (auto) Absolute Basos (auto) Seg Neutrophils % PT 13.5 INR 1.03 APTT 34.1 Sodium Potassium Chloride Carbon Dioxide Anion Gap BUN Creatinine Est GFR ( Amer) Est GFR (MDRD) Non-Af Glucose Calcium Total Bilirubin Direct Bilirubin Neonat Total Bilirubin Neonat Direct Bilirubin Neonat Indirect Bili AST ALT Alkaline Phosphatase Creatine Kinase CK-MB (CK-2) Total Protein Albumin Lipase Urine Color YELLOW Urine Appearance SLIGHTLY-CLOUDY Urine pH 7.0 Ur Specific [place] 1.014 Urine Protein NEGATIVE Urine Glucose (UA) NEGATIVE Urine Ketones TRACE H Urine Blood NEGATIVE Urine Nitrite NEGATIVE Urine Bilirubin NEGATIVE Urine Urobilinogen 4.0 H Ur Leukocyte Esterase TRACE H Urine WBC (Auto) 1 Urine RBC (Auto) 1 Squamous Epi Cells Auto 8 Urine Mucus (Auto) RARE Urine Ascorbic Acid NEGATIVE Patient's initial blood pressure and heart rate were 141/91 and 88 respectively. She was given Zofran by EMS, Compazine, Phenergan, Benadryl by E provider. She was given Reglan and then by myself. Upon reassessment patient continues with generalized vomiting. Patient does vomit twice while I am in the room, clear bile in nature. Discussed this case with my attending Dr. Ramos. Patient was then given Haldol 1 mg IM. EKG ordered to rule out prolonged QTC prior to Haldol administration noted patient's heart rate was elevated at that time. Discussed with charge nurse that the patient needed to be placed in a monitored room. Patient was then placed on the monitor and heart rate went down to 110. Patient's blood pressure was noted to be 183/111 at that time. Patient continued to be tachycardic and a CTA of patient's chest was then ordered to rule out pulmonary embolus. Patient was given generalized pain medication as she states she continues with the pain in her left upper abdomen. Patient continues to vomit despite Haldol. Upon reassessment when patient returns from CT patient was noted to be tachycardic at a rate of 144. Patient's blood pressure was also noted to be elevated at 218/145. At that time I discussed this case again with Dr. Ramos. Dr. Ramos suggest 5 mg of IV metoprolol as well as 0.5 mg of Ativan. Patient's heart rate did come down to 103, blood pressure 170/120. 25mg PO Lopressor administered. Patient continues throughout entire stay to deny chest pain, shortness of breath. States she continues to feel nauseated but has had no further episodes of vomiting while I am in the room. Patient was initially started on Lovenox as per Dr. Ramos. Based on ultrasound read not differentiating between chronic or acute DVTs and based on patient's newly swollen bilateral lower extremities we decided to treat with initial dose of Lovenox. Once patient's heart rate and blood pressure had come down patient voices she still feels generalized nausea but has not vomited. I have then discussed this case with hospitalist Dr. Ansari. Patient needs to be admitted for hypertension, intractable vomiting. Dr. Ansari will accept the patient to a medical telemetry bed. (SUMMER GRAY) 10/01/18 06:02 Patient was seen and examined as requested by [facility]. Patient is a 53-year-old female that presented did with complaint of nausea, vomiting, upper abdominal pain and left lower extremity swelling. Patient does have a history of previous DVT and does have an IVC filter. She states that her primary care physician wrote her a prescription for Coumadin for prevention of clots but she has not yet filled it. Patient also reports new and worsening swelling of the left lower extremity recently. Doppler was obtained and positive for clots bilaterally which are likely chronic and the reason the patient has an IVC filter. During the patient's ED course she became hypertensive, tachycardic. IV metoprolol was ordered and patient did have improvement of her tachycardia and hypertension but continues to vomit. EKG obtained and shows sinus tachycardia. Advised [facility] that patient will require admission and patient was accepted by the hospitalist. 10/01/18 06:05 GENERAL: Alert, interacts well. No acute distress. HEAD: Normocephalic, atraumatic. EYES: Pupils equal, round, and reactive to light. Extraocular movements intact. ENT: Oral mucosa moist, tongue midline. NECK: Full range of motion. Supple. Trachea midline. LUNGS: Clear to auscultation bilaterally, no wheezes, rales, or rhonchi. No respiratory distress. HEART: Regular rate and rhythm. No murmur ABDOMEN: Soft, generalized left upper quadrant abdominal pain noted, no Garcia sign, no McBurney's point tenderness, no left lower abdominal pain noted. Non- distended. Bowel sounds present in all 4 quadrants. EXTREMITIES: Moves all 4 extremities spontaneously. normal radial and dorsalis pedis pulses bilaterally. No cyanosis. Generalized swelling and lymphedema noted bilateral lower extremities. BACK: no cervical, thoracic, lumbar midline tenderness. No saddle anesthesia, normal distal neurovascular exam. NEUROLOGICAL: Alert and oriented x3. Normal speech. cranial nerves II through XII grossly intact. PSYCH: Normal affect, normal mood. SKIN: Warm, dry, normal turgor. (JOSE RAMOS) - Vital Signs Vital signs: Temp Pulse Resp BP Pulse Ox 99.1 F 112 H 17 128/79 H 94 09/30/18 23:00 10/01/18 02:00 09/30/18 23:00 10/01/18 00:56 10/01/18 00:56 - Laboratory Laboratory results interpreted by me: 09/29/18 09/29/18 09/29/18 18:57 18:57 20:15 Hgb 17.2 H Hct 50.9 H MCV 100 H MCH 34.0 H RDW 15.4 H Lymph % (Auto) 11.4 L Seg Neutrophils % 79.6 H Total Bilirubin 2.1 H Direct Bilirubin 0.9 H AST 87 H Alkaline Phosphatase 349 H Urine Ketones TRACE H Urine Urobilinogen 4.0 H Ur Leukocyte Esterase TRACE H Critical Care Note - Critical Care Note Total time excluding time spent on procedures (mins): 45 <SUMMER GRAY - Last Filed: 09/30/18 02:16> - Critical Care Note Comments: Please allow for 45 minutes of critical care time as depicted in course note. Multiple reassessments, IV medication treatments and inevitable admission. (SUMMER GRAY) Discharge - Discharge Admitting Provider: Coty (Hospitalist) Unit Admitted: Telemetry <SUMMER GRAY - Last Filed: 09/30/18 02:16> <JOSE RAMOS - Last Filed: 10/01/18 06:05> - Discharge Clinical Impression: Hypertension Qualifiers: Hypertension type: unspecified Qualified Code(s): I10 - Essential (primary) hypertension Abdominal pain Qualifiers: Abdominal location: left upper quadrant Qualified Code(s): R10.12 - Left upper quadrant pain Intractable vomiting with nausea Qualifiers: Vomiting type: unspecified Qualified Code(s): R11.2 - Nausea with vomiting, unspecified Condition: Stable Disposition: ADMITTED INPATIENT
[2018-09-30] MEDS ORDERED: MAGNESIUM HYDROXIDE SUSP 30 ML UDCUP PO PRN (03:44)
[2018-09-30] MEDS ORDERED: MAG HYDROX/AL HYDROX/SIMETH SUSP 30 ML UDCUP PO PRN (03:44)
[2018-09-30] MEDS ORDERED: ACETAMINOPHEN 650 MG SUPP.RECT PR PRN (03:53)
[2018-09-30] MEDS ORDERED: MORPHINE SULFATE 10 MG/ML INJ IV PRN ×3 (03:53→04:06)
[2018-09-30] MEDS ORDERED: METOPROLOL TARTRATE PF/INJ 5 MG/5 ML SDV IV PRN (04:00)
--- NOTE | 2018-09-30 04:53 | PDOC H&P ---
History of Present Illness Admission Date/PCP: 09/30/18 02:13 GLENN LOREDO MD Patient complains of: Abdominal pain History of Present Illness: BENNY LLANES is a 53 year old female who presented to the emergency room with a 3-day history of abdominal pain. Patient admits severe pain in her left upper abdomen over the last 3 days. The pain is described as a constantly present, but waxing and waning in severity, sharp aching in her left upper abdomen (subco stal and epigastric areas indicated) without radiation. The pain has been severe since the wellness health coach of 09/29/2018 and was accompanied by severe nausea and vomiting. She denies other associated or accompanying symptoms. She admits a prior similar episode with an acute bleeding peptic ulcer. She has not identified any aggravating or ameliorating factors for her abdominal pain. In the emergency room she was found to have relatively unremarkable laboratory values however she did have severe intractable nausea and vomiting. She was subsequently admitted to the hospital for further evaluation and treatment. Past Medical History Cardiac Medical History: Reports: DVT - Left lower leg, right groin (required thrombectomy), Other - Frequent DVTs required placement of a vena cava filter. Denies: Coronary Artery Disease, Myocardial Infarction, Hypertension, Peripheral Vascular Disease, Pulmonary Embolism Pulmonary Medical History: Denies: Asthma, Bronchitis, Chronic Obstructive Pulmonary Disease (COPD), Pneumonia, Tuberculosis EENT Medical History: Denies: Cataracts, Ears - Hearing aids, Nose - Allergic rhinitis Neurological Medical History: Denies: Hemorrhagic CVA, Ischemic CVA, Multiple Sclerosis, Seizures Endocrine Medical History: Reports: Obesity Denies: Diabetes Mellitus Type 1, Diabetes Mellitus Type 2, Hyperthyroidism, Hypothyroidism Renal/ Medical History: Denies: Chronic Kidney Disease, Nephrolithiasis Malignancy Medical History: Reports: None GI Medical History: Reports: Gastroesophageal Reflux Disease - ulcer, Peptic Ulcer Disease, Other - Status post gastric bypass surgery Denies: Cirrhosis, Crohn's Disease, Diverticulitis, Hepatitis, Hiatal Hernia, Ulcerative Colitis Musculoskeltal Medical History: Reports: Arthritis Denies: Fibromyalgia, Gout Skin Medical History: Reports: Other - Chronic lymphedema of bilateral lower extremities. Denies: Eczema, Psoriasis Psychiatric Medical History: Denies: Alcohol Dependency, Substance Abuse, Tobacco Dependency Traumatic Medical History: Reports: None Hematology: Reports: Anemia - With GI bleed in the past, Other - Frequent DVTs/chronic DVTs bilateral lower extremities Denies: Bleeding Tendencies Infectious Medical History: Reports: None Past Surgical History Past Surgical History: Reports: Section - x2, Gastric Bypass Surgery, Herniorrhaphy, Hip Replacement, Tonsillectomy, Vascular Surgery - Thrombectomy of right groin, Other - Vena cava filter, EGD Social History Information Source: Patient Lives with: Alone Smoking Status: Former Smoker Frequency of Alcohol Use: Social Amount of Alcoholic Beverages Per Day: about 2 glasses of wine daily Hx Recreational Drug Use: No Drugs: None Hx Prescription Drug Abuse: No - Advance Directive Resuscitation Status: Full Code Surrogate healthcare decision maker:: Jenni Velasco Family History Family History: CAD, DM, Hypertension, Malignancy - Oral cancer Parental Family History Reviewed: Yes Children Family History Reviewed: No Sibling(s) Family History Reviewed.: Yes Medication/Allergy Home Medications: Hydrocodone/Acetaminophen [[place] 5-325 Tablet] 1 each PO Q8H PRN 02/20/14 Pantoprazole Sodium [Protonix] 40 mg PO BID #60 tablet. 02/22/14 Pantoprazole Sodium 40 mg PO BID #60 tablet. 02/11/18 Sucralfate [Carafate 1 gm Tablet] 1 gm PO ACHS #120 tablet 02/11/18 Cephalexin Monohydrate [Keflex 500 mg Capsule] 500 mg PO BID #14 capsule 02/14/18 Famotidine [Pepcid 20 mg Tablet] 20 mg PO BID #20 tablet 02/14/18 Ondansetron [Zofran Odt 4 mg Tablet] 1 - 2 tab PO Q4H PRN #20 tab.rapdis 02/14/18 Sucralfate [Carafate Susp 1 Gm/10 Ml Udcup] 1 gm PO QID 5 Days #1 udc 02/14/18 Allergies/Adverse Reactions: No Known Allergies Allergy (Verified 02/11/18 16:47) Review of Systems Constitutional: ABSENT: chills, fever(s) Eyes: ABSENT: visual disturbances, other - Eye pain Ears: ABSENT: hearing changes, other - Ear pain Nose, Mouth, and Throat: ABSENT: mouth pain, sore throat Cardiovascular: PRESENT: edema - Chronic edema in lower extremities due to chronic DVTs. ABSENT: chest pain, palpitations Respiratory: ABSENT: cough, dyspnea Gastrointestinal: PRESENT: as per HPI, abdominal pain, nausea, vomiting. ABSENT: constipation, diarrhea, hematemesis Genitourinary: ABSENT: dysuria, hematuria Musculoskeletal: PRESENT: other - Chronic arthritis affecting bilateral hips. ABSENT: back pain, joint swelling, muscle weakness Integumentary: ABSENT: pruritus, rash Neurological: ABSENT: confusion, convulsions, focal weakness, memory loss, syncope Psychiatric: ABSENT: anxiety, depression Endocrine: ABSENT: cold intolerance, heat intolerance Hematologic/Lymphatic: ABSENT: easy bleeding, easy bruising Allergic/Immunologic: ABSENT: seasonal rhinorrhea Physical Exam Vital Signs: Temp Pulse Resp BP Pulse Ox 98.7 F 102 H 16 185/117 H 96 09/29/18 23:32 09/30/18 01:52 09/30/18 02:11 09/30/18 02:11 09/30/18 02:11 Intake & Output 09/28/18 09/29/18 09/30/18 23:59 23:59 23:59 Intake Total 1000 1000 Balance 1000 1000 Weight 107.7 kg General appearance: PRESENT: cooperative, mild distress - Due to nausea and vomiting, obese Head exam: PRESENT: atraumatic, normocephalic Eye exam: PRESENT: conjunctiva pink. ABSENT: conjunctival injection, scleral icterus Ear exam: PRESENT: normal external ear exam. ABSENT: bleeding, drainage Mouth exam: PRESENT: dry mucosa, neck supple Neck exam: ABSENT: JVD, thyromegaly, tracheal deviation Respiratory exam: PRESENT: clear to auscultation ubaldo, symmetrical, unlabored Cardiovascular exam: PRESENT: RRR. ABSENT: clicks, gallop, rubs Pulses: PRESENT: normal radial pulses, normal dorsalis pedis pul Vascular exam: PRESENT: normal capillary refill. ABSENT: pallor GI/Abdominal exam: PRESENT: normal bowel sounds, soft, tenderness - Left sub costal and epigastric region moderately tender on palpation Rectal exam: PRESENT: deferred Extremities exam: PRESENT: other - Moderate lymphedema of bilateral lower extremities noted.. ABSENT: joint swelling, tenderness Musculoskeletal exam: PRESENT: full ROM. ABSENT: deformity, dislocation Neurological exam: PRESENT: alert, oriented to person, oriented to place, oriented to time, oriented to situation, CN II-XII grossly intact. ABSENT: motor sensory deficit Psychiatric exam: PRESENT: appropriate affect, normal mood Skin exam: PRESENT: dry, intact, warm. ABSENT: jaundice, rash, urticaria Results Laboratory Results: 09/29/18 18:57 09/29/18 18:57 09/29/18 09/29/18 09/29/18 18:57 18:57 20:15 WBC 7.9 RBC 5.07 Hgb 17.2 H Hct 50.9 H MCV 100 H MCH 34.0 H MCHC 33.8 RDW 15.4 H Plt Count 208 Seg Neutrophils % 79.6 H Sodium 138.5 Potassium 4.6 Chloride 100 Carbon Dioxide 25 Anion Gap 14 BUN 11 Creatinine 0.91 Est GFR ( Amer) > 60 Glucose 92 Calcium 9.9 Total Bilirubin 2.1 H AST 87 H Alkaline Phosphatase 349 H Total Protein 7.3 Albumin 3.8 Lipase 159.5 Urine Color YELLOW Urine Appearance SLIGHTLY-CLOUDY Urine pH 7.0 Ur Specific [place] 1.014 Urine Protein NEGATIVE Urine Glucose (UA) NEGATIVE Urine Ketones TRACE H Urine Blood NEGATIVE Urine Nitrite NEGATIVE Ur Leukocyte Esterase TRACE H Urine WBC (Auto) 1 Urine RBC (Auto) 1 09/29/18 09/29/18 18:57 18:57 Creatine Kinase 31 CK-MB (CK-2) 0.54 Impressions: Venous Doppler Study 09/29/18 17:37 IMPRESSION: Findings positive for bilateral lower extremity DVT, as above copyright 2011 [employer]- All Rights Reserved Chest/Abdomen CTA 09/29/18 23:36 IMPRESSION: 1. No CT evidence for pulmonary embolism 2. Evidence for mild pulmonary vascular congestion, but no acute pulmonary infiltrates. 3. Hepatomegaly with diffuse hepatic steatosis 4. Cholelithiasis Assessment and Plan - Diagnosis (1) Abdominal pain Qualifiers: Abdominal location: left upper quadrant Qualified Code(s): R10.12 - Left upper quadrant pain Is this a current diagnosis for this admission?: Yes Plan: Patient's pain will be treated with morphine sulfate 3 to 7.5 mg IV every 2 hours on a as needed basis per sliding scale. She will also receive IV fluids and electrolytes. She will be seen in consultation by Dr. Flores later this morning. Daily CBCs and metabolic profiles will be obtained as part of monitoring her condition. (2) Intractable vomiting with nausea Qualifiers: Vomiting type: unspecified Qualified Code(s): R11.2 - Nausea with vomiting, unspecified Is this a current diagnosis for this admission?: Yes Plan: Patient be treated with Thorazine 25 mg IV every 8 hours on a as needed basis for nausea or vomiting. She will be treated with IV fluids and she will be seen in consultation by Dr. Flores later this morning. (3) Chronic bilateral deep venous thrombosis (DVT) of extremities Is this a current diagnosis for this admission?: Yes Plan: Patient will be treated for her chronic DVTs utilizing symptomatic treatment only as her IVC filter is adequate to prevent pulmonary embolism. No long-term or short-term anticoagulant therapy is likely to be of any significant benefit. Patient will therefore be treated with pain management utilizing morphine sulfate 3 to 7.5 mg IV every 2 hours on a as needed basis using a sliding scale. (4) Hypertension Qualifiers: Hypertension type: unspecified Qualified Code(s): I10 - Essential (primary) hypertension Is this a current diagnosis for this admission?: Yes Plan: Patient's blood pressure be monitored closely throughout her hospital stay. She was noted to be significantly acutely hypertensive (218/145) in the emergency room. Medication adjustments will be made as required. (5) GERD with esophagitis Is this a current diagnosis for this admission?: Yes Plan: Patient will be treated with IV Protonix and Reglan as well as oral sucralfate, all will be given before meals and at bedtime. (6) History of gastric bypass Is this a current diagnosis for this admission?: Yes Plan: Patient is at high risk for developing an anastomotic ulcer. Surgical consultation will be obtained with Dr. Flores to guide further evaluation/intervention. - Time Time Spent with patient: 25-34 minutes Medications reviewed and adjusted accordingly: Yes Anticipated discharge: Home - Inpatient Certification Based on my medical assessment, after consideration of the patient's comorbidities, presenting symptoms, or acuity I expect that the services needed warrant INPATIENT care.: Yes I certify that my determination is in accordance with my understanding of Medicare's requirements for reasonable and necessary INPATIENT services [42 CFR 412.3e].: Yes Medical Necessity: Significant Comorbidiites Make Outpatient Treatment Too Risky, Need Close Monitoring Due to Risk of Patient Decompensation, Need For IV Fluids, Need For Continuous Telemetry Monitoring, Need for Pain Control, Need for Surgery, Risk of Complication if Not Cared For in Hospital
[2018-09-30] MEDS: RINGERS SOLUTION,LACTATED 1,000 ML IV PRN ×2 (05:09→23:17)
[2018-09-30] MEDS: HYDRALAZINE HCL INJ/PF 20 MG/1 ML SDV IV PRN ×2 (05:16→23:15)
[2018-09-30] MEDS: ACETAMINOPHEN 325 MG TABLET PO PRN (05:18)
[2018-09-30] MEDS ORDERED: CHLORPROMAZINE HCL INJ 25 MG/1 ML AMPULE ONE (06:08)
[2018-09-30] MEDS: MORPHINE SULFATE 10 MG/ML INJ IV PRN ×2 (06:19→20:44)
--- NOTE | 2018-09-30 06:56 | PDOC CONSULTATION ---
Consultation Consult Date: 09/30/18 Attending physician:: LACEY VELÁSQUEZ Provider Consulted: YOVANA SINGH Consult reason:: left upper quadrent pain after gastric bypass History of Present Illness Admission Date/PCP: 09/30/18 02:13 GLENN LOREDO MD History of Present Illness: BENNY LLANES is a 53 year old female 53-year-old female presented to ED for left upper quadrant abdominal pain since Tuesday. She states is been waxing and waning and since Tuesday but since is been pretty bad. She states she did go to her doctor on Tuesday they gave her some nausea medicine but she still continuing to vomit. She has not had any fever or diarrhea. She states she does have lymphedema to both legs for a long time but it is much worse. She states the swelling was down to almost normal but it is much worse at this time. She states she does have a history of arthritis and blood clots in the right leg 3 years ago in the left leg 6 years ago. She is on hydrocodone for her arthritis and she drinks wine daily. She states she states she does have a history of a gastric bypass and they got some of her intestines in the scar tissue which is giving her problems at time. Patient is alert oriented respirations regular and unlabored but she is dry heaving and sometimes getting a little phlegm up while in the emergency room. Patient states she was on pantoprazole 40 mg daily for an ulcer she had. States she recently become uninsured and is unable to afford it so she been taking [id number] omeprazole 20 mg daily. Patient was given Zofran IV via EMS. Compazine and Phenergan were ordered by [facility] provider. Patient was also provided with Benadryl. Upon my examination patient continues with left upper abdominal pain as well as continued vomiting. She is denying any blood in her emesis. She is denying any dark, tarry like stools. When discussing patient's lower extremities she states that the swelling had a decreased significantly but then in the last month has increased. States she has generalized pain in bilateral lower extremities more so the left than the right Past Medical History Cardiac Medical History: Reports: DVT - Left lower leg, right groin (required thrombectomy), Other - Frequent DVTs required placement of a vena cava filter. Denies: Coronary Artery Disease, Myocardial Infarction, Hypertension, Peripheral Vascular Disease, Pulmonary Embolism Pulmonary Medical History: Denies: Asthma, Bronchitis, Chronic Obstructive Pulmonary Disease (COPD), Pn e[place], Tuberculosis EENT Medical History: Reports: Other - Frequent DVTs/chronic DVTs bilateral lower extremities Denies: Cataracts, Ears - Hearing aids, Nose - Allergic rhinitis Neurological Medical History: Denies: Hemorrhagic CVA, Ischemic CVA, Multiple Sclerosis, Seizures Endocrine Medical History: Reports: Obesity Denies: Diabetes Mellitus Type 1, Diabetes Mellitus Type 2, Hyperthyroidism, Hypothyroidism Renal/ Medical History: Denies: Chronic Kidney Disease, Nephrolithiasis Malignancy Medical History: Reports: None GI Medical History: Reports: Gastroesophageal Reflux Disease - ulcer, Peptic Ulcer Disease, Other - Status post gastric bypass surgery Denies: Cirrhosis, Crohn's Disease, Diverticulitis, Hepatitis, Hiatal Hernia, Ulcerative Colitis Musculoskeltal Medical History: Reports: Arthritis Denies: Fibromyalgia, Gout Skin Medical History: Reports: Other - Chronic lymphedema of bilateral lower extremities. Denies: Eczema, Psoriasis Psychiatric Medical History: Denies: Alcohol Dependency, Substance Abuse, Tobacco Dependency Traumatic Medical History: Reports: None Hematology: Reports: Anemia - With GI bleed in the past, Other - Frequent DVTs/chronic DVTs bilateral lower extremities Denies: Bleeding Tendencies Infectious Medical History: Reports: None Past Surgical History Past Surgical History: Reports: Section - x2, Gastric Bypass Surgery, Herniorrhaphy, Hip Replacement, Tonsillectomy, Vascular Surgery - Thrombectomy of right groin, Other - Vena cava filter, EGD Denies: Hysterectomy, Pacemaker Social History Lives with: Alone Smoking Status: Former Smoker Frequency of Alcohol Use: Social Hx Recreational Drug Use: No Drugs: None Hx Prescription Drug Abuse: No - Advance Directive Resuscitation Status: Full Code Family History Family History: CAD, DM, Hypertension, Malignancy - Oral cancer Parental Family History Reviewed: No Children Family History Reviewed: NA Sibling(s) Family History Reviewed.: NA Medication/Allergy Home Medications: Hydrocodone/Acetaminophen [[place] 5-325 Tablet] 1 each PO Q8H PRN 02/20/14 Pantoprazole Sodium [Protonix] 40 mg PO BID #60 tablet. 02/22/14 Pantoprazole Sodium 40 mg PO BID #60 tablet. 02/11/18 Sucralfate [Carafate 1 gm Tablet] 1 gm PO ACHS #120 tablet 02/11/18 Cephalexin Monohydrate [Keflex 500 mg Capsule] 500 mg PO BID #14 capsule 02/14/18 Famotidine [Pepcid 20 mg Tablet] 20 mg PO BID #20 tablet 02/14/18 Ondansetron [Zofran Odt 4 mg Tablet] 1 - 2 tab PO Q4H PRN #20 tab.rapdis 09/25 Sucralfate [Carafate Susp 1 Gm/10 Ml Udcup] 1 gm PO QID 5 Days #1 udc 02/14/18 Allergies/Adverse Reactions: No Known Allergies Allergy (Verified 02/11/18 16:47) Review of Systems Constitutional: PRESENT: weakness, weight gain Eyes: ABSENT: visual disturbances Ears: ABSENT: hearing changes Nose, Mouth, and Throat: ABSENT: as per HPI, headache(s), mouth pain, sore throat, vertigo, other Breasts: ABSENT: as per HPI, other Cardiovascular: ABSENT: as per HPI, chest pain, dyspnea on exertion, edema, orthropnea, palpitations, other Respiratory: ABSENT: as per HPI, cough, dyspnea, hemoptysis, sputum, other Gastrointestinal: PRESENT: other - Left upper quadrant abdominal pain Genitourinary: ABSENT: as per HPI, difficulty urinating, dysuria, hematuria, nocturia, other Musculoskeletal: PRESENT: back pain, joint swelling Integumentary: ABSENT: as per HPI, diaphoresis, erythema, lesions, pruritus, rash, wounds, other Neurological: ABSENT: as per HPI, abnormal gait, abnormal movements, abnormal speech, confusion, convulsions, dizziness, focal weakness, frequent falls, lack of coordination, memory loss, numbness, paresthesias, restless legs, syncope, tingling, tremor(s), vertigo, weakness, other Psychiatric: ABSENT: as per HPI, anxiety, depression, hallucinations, homidical ideation, suicidal ideation, other Endocrine: ABSENT: as per HPI, cold intolerance, flushing, heat intolerance, m enstrual abnormalities, polydipsia, polyphagia, polyuria, other Hematologic/Lymphatic: ABSENT: as per HPI, easy bleeding, easy bruising, lymphadenopathy, other Allergic/Immunologic: ABSENT: as per HPI, seasonal rhinorrhea, other Physical Exam Vital Signs: Temp Pulse Resp BP Pulse Ox 98.5 F 99 16 152/100 H 98 09/30/18 04:19 09/30/18 04:19 09/30/18 04:19 09/30/18 04:19 09/30/18 04:19 Intake & Output 09/28/18 09/29/18 09/30/18 06:59 06:59 06:59 Intake Total 1999 Balance 1999 Weight 92.9 kg General appearance: PRESENT: mild distress Head exam: PRESENT: normocephalic Eye exam: PRESENT: PERRLA Ear exam: PRESENT: normal external ear exam Mouth exam: PRESENT: moist Teeth exam: PRESENT: other Neck exam: PRESENT: full ROM Respiratory exam: PRESENT: clear to auscultation ubaldo Cardiovascular exam: PRESENT: RRR Pulses: PRESENT: normal radial pulses, normal femoral pulses GI/Abdominal exam: PRESENT: tenderness - Upper quadrant tenderness Rectal exam: PRESENT: deferred Extremities exam: PRESENT: full ROM, other - Right lateral lower extremity swelling secondary to lymphedema Musculoskeletal exam: PRESENT: full ROM Neurological exam: PRESENT: alert, awake, oriented to person, oriented to place Psychiatric exam: PRESENT: appropriate affect Skin exam: PRESENT: dry Results Laboratory Results: 09/29/18 18:57 09/29/18 18:57 09/29/18 09/29/18 09/29/18 18:57 18:57 20:15 WBC 7.9 RBC 5.07 Hgb 17.2 H Hct 50.9 H MCV 100 H MCH 34.0 H MCHC 33.8 RDW 15.4 H Plt Count 208 Seg Neutrophils % 79.6 H Sodium 138.5 Potassium 4.6 Chloride 100 Carbon Dioxide 25 Anion Gap 14 BUN 11 Creatinine 0.91 Est GFR ( Amer) > 60 Glucose 92 Calcium 9.9 Total Bilirubin 2.1 H AST 87 H Alkaline Phosphatase 349 H Total Protein 7.3 Albumin 3.8 Lipase 159.5 Urine Color YELLOW Urine Appearance SLIGHTLY-CLOUDY Urine pH 7.0 Ur Specific [place] 1.014 Urine Protein NEGATIVE Urine Glucose (UA) NEGATIVE Urine Ketones TRACE H Urine Blood NEGATIVE Urine Nitrite NEGATIVE Ur Leukocyte Esterase TRACE H Urine WBC (Auto) 1 Urine RBC (Auto) 1 09/29/18 09/29/18 18:57 18:57 Creatine Kinase 31 CK-MB (CK-2) 0.54 Impressions: Venous Doppler Study 09/29/18 17:37 IMPRESSION: Findings positive for bilateral lower extremity DVT, as above copyright 2011 [employer]- All Rights Reserved Chest/Abdomen CTA 09/29/18 23:36 IMPRESSION: 1. No CT evidence for pulmonary embolism 2. Evidence for mild pulmonary vascular congestion, but no acute pulmonary infiltrates. 3. Hepatomegaly with diffuse hepatic steatosis 4. Cholelithiasis Assessment & Plan - Diagnosis (1) Abdominal pain Qualifiers: Abdominal location: left upper quadrant Qualified Code(s): R10.12 - Left upper quadrant pain Is this a current diagnosis for this admission?: Yes - Plan Summary Plan Summary: Impression patient is status post gastric bypass in the 8 years ago [place]. Has had a previous history of known anastomotic ulcer and now returns today with new onset left upper quadrant pain that she states is similar to her previous ulcer pain. Review of the CT scan shows a dilated gastric pouch there is no evidence of any internal hernia formation or or suggestion of small bowel obstruction Recommendations #1 patient should remain n.p.o. and started on proton pump inhibitor therapy. 2. She will need an upper GI small bowel follow-through during this hospitalization to elucidate the gastric bypass anatomy. 3. She will need an upper endoscopy to evaluate her gastrojejunal anastomosis. Surgery will continue to follow.
[2018-09-30] MEDS: METOCLOPRAMIDE HCL 10 MG TABLET PO SCH ×4 (07:45→21:33)
[2018-09-30] MEDS: INSULIN REG, HUMAN 100 UNIT/ML 3 ML VIAL (PYX) SUBCUT SCH ×4 (07:45→22:00)
[2018-09-30 07:50] LABS: FREE T3 5.48 pg/mL (2.77-5.27); FREE T4 (FREE THYROXINE) 2.13 ng/dL (0.78-2.19)
[2018-09-30] MEDS ORDERED: SUCRALFATE 1 GM TABLET PO SCH (08:00)
[2018-09-30 08:03] LABS: THYROID STIMULATING HORMONE 2.85 uIU/mL (0.47-4.68)
--- NOTE | 2018-09-30 09:14 | Progress Note ---
Provider Note Provider Note: Patient examined and chart reviewed No nausea or vomiting right now Physical exam: Lungs clear to auscultation Heart regular rhythm and rate with AMY 3/6 Abdomen soft with slight tenderness in the epigastrium Assessment: Resolved intractable nausea vomiting present on admission in the ED Resolved hypertension Mild tenderness of the epigastrium Plan: N.p.o. Increase Protonix 40 mg IV every 8 hours Carafate 1 g p.o. every 6 hours Upper GI with small bowel follow-through to be done today If this occurs, the patient will be scheduled for upper gastroduodenoscopy tomorrow by Dr. Flores
[2018-09-30] MEDS: METOPROLOL SUCCINATE 50 MG TAB.SR.24H PO SCH (09:28)
[2018-09-30] MEDS: DOCUSATE SODIUM 100 MG CAPSULE PO SCH ×2 (09:31→17:50)
[2018-09-30] MEDS ORDERED: PANTOPRAZOLE SODIUM 40 MG VIAL IV SCH (10:00)
[2018-09-30] MEDS ORDERED: ENOXAPARIN SODIUM INJ 120 MG/0.8 ML DISP.SYRIN SUBCUT SCH (10:00)
[2018-09-30] MEDS: SUCRALFATE 1 GM TABLET PO SCH ×2 (12:03→17:14)
[2018-09-30] MEDS: PANTOPRAZOLE SODIUM 40 MG VIAL IV SCH ×2 (14:40→21:34)
[2018-09-30] MEDS: CHLORPROMAZINE HCL INJ 25 MG/1 ML AMPULE IV PRN (15:00)
--- NOTE | 2018-09-30 16:49 | Progress Note ---
Provider Note Provider Note: This is 53 years old female patient was past medical history of anastomotic ulcer following bariatric surgery 15 years ago, recurrent DVT which requires IVC filter placement, bilateral chronic lymphedema due to the recurrent DVT, obesity, presented with chief complaint of abdominal pain of 3 days duration. Her H&H is stable. Patient scheduled for upper endoscopy tomorrow. Accepted this patient.
--- NOTE | 2018-09-30 19:06 | EKG REPORT ---
SEVERITY:- ABNORMAL ECG - SINUS TACHYCARDIA VENTRICULAR PREMATURE COMPLEX LVH WITH SECONDARY REPOLARIZATION ABNORMALITY : Confirmed by: Misty Medrano MD 30-Sep-2018 19:05:29
--- NOTE | 2018-09-30 19:06 | EKG REPORT ---
SEVERITY:- ABNORMAL ECG - SINUS TACHYCARDIA LVH BY VOLTAGE ABNORMAL T, CONSIDER ISCHEMIA, INFERIOR LEADS : Confirmed by: Misty Medrano MD 30-Sep-2018 19:05:23
--- NOTE | 2018-09-30 19:07 | EKG REPORT ---
SEVERITY:- ABNORMAL ECG - SINUS TACHYCARDIA ATRIAL PREMATURE COMPLEX LEFT VENTRICULAR HYPERTROPHY NONSPECIFIC T ABNORMALITIES, INFERIOR LEADS : Confirmed by: Misty Medrano MD 30-Sep-2018 19:05:49
[2018-09-30] MEDS: DIAZEPAM INJ 10 MG/2 ML DISP.SYRIN IV PRN (23:56)
[2018-10-01] MEDS: SUCRALFATE 1 GM TABLET PO SCH ×4 (01:19→18:33)
[2018-10-01 05:23] LABS: ALBUMIN 2.6 g/dL (3.5-5.0); ALKALINE PHOSPHATASE 219 U/L (38-126); ANION GAP 8 (5-19); ASPARTATE AMINO TRANSFERASE 61 U/L (14-36); BILIRUBIN,DIRECT 0.7 mg/dL (0.0-0.4); BILIRUBIN,TOTAL 1.8 mg/dL (0.2-1.3); BLOOD UREA NITROGEN 10 mg/dL (7-20); CALCIUM 8.5 mg/dL (8.4-10.2); CARBON DIOXIDE 24 mmol/L (22-30); CHLORIDE 105 mmol/L (98-107); CHOLESTEROL 89.92 mg/dL (0-200); GLUCOSE 93 mg/dL (75-110); POTASSIUM 3.6 mmol/L (3.6-5.0); TOTAL PROTEIN 5.4 g/dL (6.3-8.2); TRIGLYCERIDES 90 mg/dL (<150)
[2018-10-01 05:24] LABS: HEMATOCRIT 41.7 % (36.0-47.0); MEAN CORPUSCULAR HEMOGLOBIN 34.3 pg (27.0-33.4); MEAN CORPUSCULAR HGB CONC 33.8 g/dL (32.0-36.0); MEAN CORPUSCULAR VOLUME 101 fl (80-97); PLATELET COUNT 152 10^3/uL (150-450); RED BLOOD COUNT 4.11 10^6/uL (3.72-5.28); RED CELL DISTRIBUTION WIDTH 15.3 % (11.5-14.0); WHITE BLOOD COUNT 7.5 10^3/uL (4.0-10.5)
[2018-10-01 05:39] LABS: DIRECT LDL 44 mg/dL (<100)
[2018-10-01 06:17] LABS: HEMOGLOBIN 14.1 g/dL (12.0-15.5)
[2018-10-01] MEDS: PANTOPRAZOLE SODIUM 40 MG VIAL IV SCH ×3 (06:19→22:00)
[2018-10-01] MEDS ORDERED: GLUCAGON,HUMAN RECOMB 1 MG INJ SUBCUT PRN (07:39)
[2018-10-01] MEDS ORDERED: DEXTROSE 50%-WATER 25 GM/50 ML DISP.SYRIN IV PRN ×2 (07:39)
[2018-10-01] MEDS ORDERED: DEXTROSE 40% GEL 15 GM TUBE PO PRN ×2 (07:39)
--- NOTE | 2018-10-01 07:43 | PDOC PROGRESS REPORT ---
Subjective Progress Note for:: 10/01/18 Subjective:: Resolved left upper quadrant abdominal pain, no nausea vomiting reported, clear liquid diet tolerated Reason For Visit: ABDOMINAL PAIN, INTRACTABLE VOMITING WITH Physical Exam Vital Signs: Temp Pulse Resp BP Pulse Ox 99.1 F 112 H 17 128/79 H 94 09/30/18 23:00 10/01/18 02:00 09/30/18 23:00 10/01/18 00:56 10/01/18 00:56 Intake & Output 09/30/18 10/01/18 10/02/18 06:59 06:59 06:59 Intake Total 1999 2600 Output Total 1100 Balance 2000 1500 Weight 92.9 kg 92.9 kg General appearance: PRESENT: no acute distress GI/Abdominal exam: PRESENT: other - minimal discomfort on palpation LUQ of the abdomen Results Laboratory Results: 10/01/18 03:27 10/01/18 03:27 09/30/18 10/01/18 10/01/18 06:42 03:27 03:27 WBC 7.5 RBC 4.11 Hgb 14.1 D Hct 41.7 MCV 101 H MCH 34.3 H MCHC 33.8 RDW 15.3 H Plt Count 152 Sodium 137.0 Potassium 3.6 Chloride 105 Carbon Dioxide 24 Anion Gap 8 BUN 10 Creatinine 0.75 Est GFR ( Amer) > 60 Glucose 93 Calcium 8.5 Magnesium 1.9 Total Bilirubin 1.8 H AST 61 H Alkaline Phosphatase 219 H Total Protein 5.4 L Albumin 2.6 L Triglycerides 90 Cholesterol 89.92 LDL Cholesterol Direct 44 VLDL Cholesterol 18.0 HDL Cholesterol 50 TSH 2.85 Free T4 2.13 Free T3 pg/mL 5.48 H 09/29/18 09/29/18 18:57 18:57 Creatine Kinase 31 CK-MB (CK-2) 0.54 Impressions: Venous Doppler Study 09/29/18 17:37 IMPRESSION: Findings positive for bilateral lower extremity DVT, as above copyright 2011 [employer] All Rights Reserved Chest/Abdomen CTA 09/29/18 23:36 IMPRESSION: 1. No CT evidence for pulmonary embolism 2. Evidence for mild pulmonary vascular congestion, but no acute pulmonary infiltrates. 3. Hepatomegaly with diffuse hepatic steatosis 4. Cholelithiasis Assessment & Plan - Plan Summary Plan Summary: Assessment: Resolved left upper quadrant abdominal pain No nausea vomiting Physical exam of the abdomen demonstrates a benign abdomen with minimal discomfort in left upper quadrant Plan: Stop IV narcotics Start tramadol 50-minute p.o. every 6 together with Tylenol Upper GI with small bowel follow-through to be done tomorrow N.p.o. after midnight for the above test
[2018-10-01] MEDS: INSULIN REG, HUMAN 100 UNIT/ML 3 ML VIAL (PYX) SUBCUT SCH ×4 (09:37→22:00)
[2018-10-01] MEDS: CHLORPROMAZINE HCL INJ 25 MG/1 ML AMPULE IV PRN ×2 (09:44→16:57)
[2018-10-01] MEDS: METOCLOPRAMIDE HCL 10 MG TABLET PO SCH ×4 (09:45→22:00)
[2018-10-01] MEDS: DOCUSATE SODIUM 100 MG CAPSULE PO SCH ×2 (09:57→18:32)
[2018-10-01] MEDS: TRAMADOL HCL 50 MG TABLET PO PRN ×2 (10:46→17:44)
[2018-10-01] MEDS: METOPROLOL SUCCINATE 50 MG TAB.SR.24H PO SCH (10:47)
[2018-10-01] MEDS: RINGERS SOLUTION,LACTATED 1,000 ML IV PRN ×2 (10:56→17:19)
--- NOTE | 2018-10-01 14:26 | PDOC PROGRESS REPORT ---
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 Her H&H is stable. Patient scheduled for upper endoscopy tomorrow. Accepted this patient. 10/01/2018: Patient seen resting in bed comfortably. She is awake alert oriented. She reports this her abdominal pain is relatively better than the previous days. This morning patient reevaluated by Dr. Strong who requested upper GI series with small bowel to be done tomorrow. Patient will be kept n.p.o. Reason For Visit: ABDOMINAL PAIN, INTRACTABLE VOMITING WITH Physical Exam Vital Signs: Temp Pulse Resp BP Pulse Ox 98.3 F 100 16 150/90 H 95 10/01/18 11:41 10/01/18 11:41 10/01/18 11:41 10/01/18 11:41 10/01/18 11:41 Intake & Output 09/30/18 10/01/18 10/02/18 06:59 06:59 06:59 Intake Total 2000 2600 Output Total 1100 Balance 2000 1500 Weight 92.9 kg 92.9 kg General appearance: PRESENT: no acute distress Head exam: PRESENT: atraumatic Respiratory exam: PRESENT: clear to auscultation ubaldo. ABSENT: rales, rhonchi, wheezes Cardiovascular exam: PRESENT: RRR. ABSENT: diastolic murmur, rubs, systolic mur mur GI/Abdominal exam: PRESENT: normal bowel sounds, soft. ABSENT: distended, guarding, mass, organolmegaly, rebound, tenderness Extremities exam: PRESENT: +2 edema Neurological exam: PRESENT: alert, awake, oriented to person, oriented to place, oriented to time, oriented to situation Results Laboratory Results: 10/01/18 03:27 10/01/18 03:27 10/01/18 10/01/18 03:27 03:27 WBC 7.5 RBC 4.11 Hgb 14.1 D Hct 41.7 MCV 101 H MCH 34.3 H MCHC 33.8 RDW 15.3 H Plt Count 152 Sodium 137.0 Potassium 3.6 Chloride 105 Carbon Dioxide 24 Anion Gap 8 BUN 10 Creatinine 0.75 Est GFR ( Amer) > 60 Glucose 93 Calcium 8.5 Magnesium 1.9 Total Bilirubin 1.8 H AST 61 H Alkaline Phosphatase 219 H Total Protein 5.4 L Albumin 2.6 L Triglycerides 90 Cholesterol 89.92 LDL Cholesterol Direct 44 VLDL Cholesterol 18.0 HDL Cholesterol 50 09/29/18 09/29/18 18:57 18:57 Creatine Kinase 31 CK-MB (CK-2) 0.54 Impressions: Venous Doppler Study 09/29/18 17:37 IMPRESSION: Findings positive for bilateral lower extremity DVT, as above copyright 2011 [email or web address]- All Rights Reserved Chest/Abdomen CTA 09/29/18 23:36 IMPRESSION: 1. No CT evidence for pulmonary embolism 2. Evidence for mild pulmonary vascular congestion, but no acute pulmonary infiltrates. 3. Hepatomegaly with diffuse hepatic steatosis 4. Cholelithiasis Assessment and Plan - Diagnosis (1) Abdominal pain Qualifiers: Abdominal location: left upper quadrant Qualified Code(s): R10.12 - Left upper quadrant pain Is this a current diagnosis for this admission?: Yes Plan: Her abdominal pain has been improving. Upper GI series requested. (2) Intractable nausea and vomiting Is this a current diagnosis for this admission?: Yes Plan: Improving (3) Obesity (BMI 35.0-39.9 without comorbidity) Is this a current diagnosis for this admission?: Yes Plan: Patient advised to do lifestyle modification. (4) Chronic bilateral deep venous thrombosis (DVT) of extremities Is this a current diagnosis for this admission?: Yes Plan: Status post IVC filter placement. Patient has bilateral lymphedema following the chronic DVT. (5) Hypertension Qualifiers: Hypertension type: essential hypertension Qualified Code(s): I10 - Essential (primary) hypertension Is this a current diagnosis for this admission?: Yes Plan: Continue current regimen (6) Gastroesophageal reflux disease Qualifiers: Esophagitis presence: with esophagitis Qualified Code(s): K21.0 - Gastro- esophageal reflux disease with esophagitis Is this a current diagnosis for this admission?: Yes Plan: Continue PPI (7) History of gastric bypass Is this a current diagnosis for this admission?: Yes Plan: If the upper GI series is abnormal patient will be subjected to upper endoscopy to rule out anastomotic ulcer.
[2018-10-01] MEDS: HYDRALAZINE HCL INJ/PF 20 MG/1 ML SDV IV PRN (19:42)
[2018-10-01] MEDS: DIAZEPAM INJ 10 MG/2 ML DISP.SYRIN IV PRN (20:07)
[2018-10-02] MEDS: DIAZEPAM INJ 10 MG/2 ML DISP.SYRIN IV PRN ×2 (00:47→21:22)
[2018-10-02] MEDS: SUCRALFATE 1 GM TABLET PO SCH ×4 (02:03→18:00)
[2018-10-02] MEDS: ACETAMINOPHEN 325 MG TABLET PO PRN (05:40)
[2018-10-02] MEDS: PANTOPRAZOLE SODIUM 40 MG VIAL IV SCH ×3 (05:40→21:13)
[2018-10-02] MEDS: RINGERS SOLUTION,LACTATED 1,000 ML IV PRN ×2 (05:41→16:45)
[2018-10-02 06:17] LABS: HEMATOCRIT 40.5 % (36.0-47.0); HEMOGLOBIN 13.8 g/dL (12.0-15.5); MEAN CORPUSCULAR HEMOGLOBIN 34.3 pg (27.0-33.4); MEAN CORPUSCULAR VOLUME 101 fl (80-97); PLATELET COUNT 130 10^3/uL (150-450); RED BLOOD COUNT 4.01 10^6/uL (3.72-5.28); WHITE BLOOD COUNT 5.1 10^3/uL (4.0-10.5)
[2018-10-02 06:32] LABS: ALBUMIN 2.3 g/dL (3.5-5.0); ALKALINE PHOSPHATASE 186 U/L (38-126); ANION GAP 8 (5-19); ASPARTATE AMINO TRANSFERASE 56 U/L (14-36); BILIRUBIN,DIRECT 0.7 mg/dL (0.0-0.4); BILIRUBIN,TOTAL 1.7 mg/dL (0.2-1.3); BLOOD UREA NITROGEN 8 mg/dL (7-20); CALCIUM 8.6 mg/dL (8.4-10.2); CARBON DIOXIDE 25 mmol/L (22-30); CHLORIDE 104 mmol/L (98-107); GLUCOSE 85 mg/dL (75-110); POTASSIUM 3.5 mmol/L (3.6-5.0); TOTAL PROTEIN 4.9 g/dL (6.3-8.2)
[2018-10-02] MEDS: INSULIN REG, HUMAN 100 UNIT/ML 3 ML VIAL (PYX) SUBCUT SCH ×4 (07:48→21:21)
[2018-10-02] MEDS: METOCLOPRAMIDE HCL 10 MG TABLET PO SCH ×4 (10:46→21:13)
[2018-10-02] MEDS: DOCUSATE SODIUM 100 MG CAPSULE PO SCH ×2 (11:41→17:12)
[2018-10-02] MEDS: TRAMADOL HCL 50 MG TABLET PO PRN ×2 (11:43→18:00)
[2018-10-02] MEDS: METOPROLOL SUCCINATE 50 MG TAB.SR.24H PO SCH (11:43)
--- NOTE | 2018-10-02 13:26 | RADIOLOGY REPORT (SQ) ---
EXAM DESCRIPTION: UPPER GI/SM BOWEL COMPLETED DATE/TIME: 10/02/2018 12:59 pm REASON FOR STUDY: s/p gastric bypass. left side abdominal pain COMPARISON: CT chest 09/30/2018 Right rib detail films 08/11/2018 Three-way abdomen series 02/11/2018 TECHNIQUE: Under fluoroscopic guidance, patient ingested thin liquid barium. Fluoroscopic spot imag es and routine radiographic images acquired and stored on PACS. Following evaluation of esophagus and stomach, additional barium administered with serial delayed abd ominal radiographs until colonic identification. Fluoroscopic images recorded of the terminal ileum. 12 MM BARIUM TABLET GIVEN: No. FLUOROSCOPY TIME: 2.5 minutes 12 series of digital fluoroscopic images saved to PACS. LIMITATIONS: None. FINDINGS: The mds manager KUB film demonstrates bilateral hip replacements, a left iliac venous stent, inf erior vena cava filter. Surgical clips post gastric bypass at the upper edge of the field of view. Normal bowel gas pattern. NEUROMUSCULAR COORDINATION OF SWALLOW: Normal. No aspiration. ESOPHAGEAL MOTILITY: Normal peristalsis. No esophageal spasm. ESOPHAGEAL MUCOSA: Normal mucosa without masses or ulceration. GASTRO-ESOPHAGEAL JUNCTION: No hiatal hernia or reflux. STOMACH: Post gastric bypass surgery. A moderate size fundal pouch is present, which empties promptl y into a normal caliber efferrent small bowel loop. Remainder of the stomach and koi duodenum is not opacified. GASTRIC OUTLET: No delay in emptying of the gastric pouch. DUODENAL BULB: Not visualized DUODENUM: Not visualized PROXIMAL SMALL BOWEL: Normal as visualized. JEJUNUM: Normal mucosal pattern. No dilatation, segmentation, strictures or masses. ILEUM: Normal mucosal pattern. No dilatation, segmentation, strictures or masses. TERMINAL ILEUM AND ILEO-CECAL VALVE: Normal mucosal pattern without cobble-stoning or stricture. Nor mal compression at fluoroscopy. PROXIMAL COLON: Incompletely imaged. No abnormality. NON-GI TRACT STRUCTURES: Inferior vena cava filter, left iliac vein stent, bilateral hip replacements OTHER: Normal overall transit time of barium through the gastrointestinal tract. IMPRESSION: Post gastric bypass with moderate size fundal pouch. Prompt emptying of the gastric bonnie ch into small bowel loops. Normal small bowel transit time and mucosal fold pattern. COMMENT: Quality ID [id number]: Final reports for procedures using fluoroscopy that document radiation exp osure indices, or exposure time and number of fluorographic images (if radiation exposure indices are not available) TECHNICAL DOCUMENTATION: JOB ID: [id number] [facility] [employer]- All Rights Reserved Reading location - IP/workstation name: [email or web address]
[2018-10-02] MEDS: HYDRALAZINE HCL INJ/PF 20 MG/1 ML SDV IV PRN (13:59)
[2018-10-02] MEDS ORDERED: HYDROMORPHONE HCL INJ/PF 2 MG/ML AMPULE IV ONE (14:38)
[2018-10-02] MEDS ORDERED: CEFAZOLIN 2 GM/D5W RTU 2 GM/50 ML RTUPB IV SCH (15:00)
[2018-10-02] MEDS: CEFAZOLIN SODIUM 2 GM in DEXTROSE 5%-WATER 100 ML IV SCH (16:45)
[2018-10-02] MEDS ORDERED: ONDANSETRON HCL INJ/PF 4 MG/2 ML SDV IV PRN (17:37)
--- NOTE | 2018-10-02 18:02 | PDOC PROGRESS REPORT ---
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 Her H&H is stable. Patient scheduled for upper endoscopy tomorrow. Accepted this patient. 10/01/2018: Patient seen resting in bed comfortably. She is awake alert oriented. She reports this her abdominal pain is relatively better than the previous days. This morning patient reevaluated by Dr. Strong who requested upper GI series with small bowel to be done tomorrow. Patient will be kept n.p.o. 10/02/2018: Patient seen resting in bed. She complains subjective fever and left upper arm pain and tenderness. On examination of the left upper arm there is tenderness and erythema at the injection site patient has cellulitis most probably. She has been started on cefazolin. Upper GI series reported as post a gastric bypass with moderate sized fundal pouch. Prompt emptying of the gastric pouch into small bowel loops. Normal small bowel transit time into the mucosal fold pattern. She is potential discharge for tomorrow. Reason For Visit: ABDOMINAL PAIN, INTRACTABLE VOMITING WITH Physical Exam Vital Signs: Temp Pulse Resp BP Pulse Ox 98.0 F 106 H 18 138/85 H 96 10/02/18 16:06 10/02/18 16:35 10/02/18 16:06 10/02/18 16:35 10/02/18 16:06 Intake & Output 10/01/18 10/02/18 10/03/18 06:59 06:59 06:59 Intake Total 2600 2000 1000 Output Total 1100 Balance 1500 2000 1000 Weight 92.9 kg 87.2 kg General appearance: PRESENT: no acute distress Head exam: PRESENT: atraumatic Neck exam: ABSENT: carotid bruit, JVD, lymphadenopathy, thyromegaly Respiratory exam: PRESENT: clear to auscultation ubaldo. ABSENT: rales, rhonchi, wheezes Cardiovascular exam: PRESENT: RRR. ABSENT: diastolic murmur, rubs, systolic murmur Extremities exam: PRESENT: other - Right upper arm erythema and tenderness. Neurological exam: PRESENT: alert, oriented to person, oriented to place, oriented to time, oriented to situation Results Laboratory Results: 10/02/18 05:33 10/02/18 05:33 10/02/18 10/02/18 05:33 05:33 WBC 5.1 RBC 4.01 Hgb 13.8 Hct 40.5 MCV 101 H MCH 34.3 H MCHC 34.0 RDW 15.0 H Plt Count 130 L Sodium 136.5 L Potassium 3.5 L Chloride 104 Carbon Dioxide 25 Anion Gap 8 BUN 8 Creatinine 0.68 Est GFR ( Amer) > 60 Glucose 85 Calcium 8.6 Magnesium 1.8 Total Bilirubin 1.7 H AST 56 H Alkaline Phosphatase 186 H Total Protein 4.9 L Albumin 2.3 L 09/29/18 09/29/18 18:57 18:57 Creatine Kinase 31 CK-MB (CK-2) 0.54 Impressions: Venous Doppler Study 09/29/18 17:37 IMPRESSION: Findings positive for bilateral lower extremity DVT, as above copyright 2011 [employer]- All Rights Reserved Chest/Abdomen CTA 09/29/18 23:36 IMPRESSION: 1. No CT evidence for pulmonary embolism 2. Evidence for mild pulmonary vascular congestion, but no acute pulmonary infiltrates. 3. Hepatomegaly with diffuse hepatic steatosis 4. Cholelithiasis Upper GI and Small Bowel X-Ray 10/02/18 07:00 IMPRESSION: Post gastric bypass with moderate size fundal pouch. Prompt emptying of the gastric pouch into small bowel loops. Normal small bowel transit time and mucosal fold pattern. Assessment and Plan - Diagnosis (1) Cellulitis Qualifiers: Site of cellulitis: extremity Site of cellulitis of extremity: upper extremity Laterality: left Qualified Code(s): L03.114 - Cellulitis of left upper limb Is this a current diagnosis for this admission?: Yes Plan: Patient has been started on IV cefazolin. (2) Abdominal pain Qualifiers: Abdominal location: left upper quadrant Qualified Code(s): R10.12 - Left upper quadrant pain Is this a current diagnosis for this admission?: Yes Plan: Her abdominal pain has been improving. Upper GI series requested. (3) Intractable nausea and vomiting Is this a current diagnosis for this admission?: Yes Plan: Improving (4) Obesity (BMI 35.0-39.9 without comorbidity) Is this a current diagnosis for this admission?: Yes Plan: Patient advised to do lifestyle modification. (5) Chronic bilateral deep venous thrombosis (DVT) of extremities Is this a current diagnosis for this admission?: Yes Plan: Status post IVC filter placement. Patient has bilateral lymphedema following the chronic DVT. (6) Hypertension Qualifiers: Hypertension type: essential hypertension Qualified Code(s): I10 - Essential (primary) hypertension Is this a current diagnosis for this admission?: Yes Plan: Continue current regimen (7) Gastroesophageal reflux disease Qualifiers: Esophagitis presence: with esophagitis Qualified Code(s): K21.0 - Gastro- esophageal reflux disease with esophagitis Is this a current diagnosis for this admission?: Yes Plan: Continue PPI (8) History of gastric bypass Is this a current diagnosis for this admission?: Yes Plan: If the upper GI series is abnormal patient will be subjected to upper endoscopy to rule out anastomotic ulcer.
[2018-10-02] MEDS: NYSTATIN TOPICAL POWDER 15 GM TP SCH (18:05)
--- NOTE | 2018-10-02 18:11 | PDOC PROGRESS REPORT ---
Subjective Progress Note for:: 10/02/18 Subjective:: No acute distress, still complaining of chronic abdominal pain. No further nausea vomiting slightly dilated gastric pouch, gastro jejunal transit of contrast uneventfully throughout the small bowel. No evidence of bowel obstruction. Reason For Visit: ABDOMINAL PAIN, INTRACTABLE VOMITING WITH Physical Exam Vital Signs: Temp Pulse Resp BP Pulse Ox 98.0 F 106 H 18 138/85 H 96 10/02/18 16:06 10/02/18 16:35 10/02/18 16:06 10/02/18 16:35 10/02/18 16:06 Intake & Output 10/01/18 10/02/18 10/03/18 06:59 06:59 06:59 Intake Total 2600 2000 1000 Output Total 1100 Balance 1500 2000 1000 Weight 92.9 kg 87.2 kg General appearance: PRESENT: mild distress GI/Abdominal exam: PRESENT: other - Abdomen nondistended; diffusely sore but no peritoneal signs or rigidity. Results Laboratory Results: 10/02/18 05:33 10/02/18 05:33 10/02/18 10/02/18 05:33 05:33 WBC 5.1 RBC 4.01 Hgb 13.8 Hct 40.5 MCV 101 H MCH 34.3 H MCHC 34.0 RDW 15.0 H Plt Count 130 L Sodium 136.5 L Potassium 3.5 L Chloride 104 Carbon Dioxide 25 Anion Gap 8 BUN 8 Creatinine 0.68 Est GFR ( Amer) > 60 Glucose 85 Calcium 8.6 Magnesium 1.8 Total Bilirubin 1.7 H AST 56 H Alkaline Phosphatase 186 H Total Protein 4.9 L Albumin 2.3 L 09/29/18 09/29/18 18:57 18:57 Creatine Kinase 31 CK-MB (CK-2) 0.54 Impressions: Venous Doppler Study 09/29/18 17:37 IMPRESSION: Findings positive for bilateral lower extremity DVT, as above copyright 2011 [employer]- All Rights Reserved Chest/Abdomen CTA 09/29/18 23:36 IMPRESSION: 1. No CT evidence for pulmonary embolism 2. Evidence for mild pulmonary vascular congestion, but no acute pulmonary infiltrates. 3. Hepatomegaly with diffuse hepatic steatosis 4. Cholelithiasis Upper GI and Small Bowel X-Ray 10/02/18 07:00 IMPRESSION: Post gastric bypass with moderate size fundal pouch. Prompt emptying of the gastric pouch into small bowel loops. Normal small bowel transit time and mucosal fold pattern. Assessment & Plan - Diagnosis (1) Abdominal pain Qualifiers: Abdominal location: left upper quadrant Qualified Code(s): R10.12 - Left upper quadrant pain Is this a current diagnosis for this admission?: Yes Plan: Impression: Chronic abdominal pain of unclear etiology. No evidence of anastomotic leak or tight stricture, or bowel obstruction; patient has a remote history of anastomotic ulcer. Recommendations: 1. Patient on appropriate antacid medication 2. Patient may benefit from upper endoscopy to evaluate her gastric jejunal anastomosis; conversely she may have a ulcer in her bypassed stomach remnant which may be challenging to diagnose. Will discuss with Dr. Flores in the [facility]. In the interim we will keep patient n.p.o. after midnight, clear liquids today however. (2) History of gastric bypass Is this a current diagnosis for this admission?: Yes (3) Intractable nausea and vomiting Is this a current diagnosis for this admission?: Yes (4) Obesity (BMI 35.0-39.9 without comorbidity) Is this a current diagnosis for this admission?: Yes
[2018-10-02 18:47] LABS: APPEARANCE,URINE CLEAR; BILIRUBIN,URINE NEGATIVE (NEGATIVE); COLOR,URINE AMBER; GLUCOSE, URINE NEGATIVE (NEGATIVE); KETONES,URINE 20 mg/dL (NEGATIVE); LEUKOCYTE ESTERASE,URINE NEGATIVE (NEGATIVE); NITRITE,URINE NEGATIVE (NEGATIVE); PROTEIN,URINE NEGATIVE (NEGATIVE); URINE SPECIFIC GRAVITY 1.013
[2018-10-03] MEDS: RINGERS SOLUTION,LACTATED 1,000 ML IV PRN ×3 (00:01→13:22)
[2018-10-03] MEDS: CEFAZOLIN SODIUM 2 GM in DEXTROSE 5%-WATER 100 ML IV SCH ×3 (00:01→11:04)
[2018-10-03] MEDS: SUCRALFATE 1 GM TABLET PO SCH ×3 (00:02→11:18)
[2018-10-03] MEDS: DIAZEPAM INJ 10 MG/2 ML DISP.SYRIN IV PRN ×2 (02:33→11:10)
[2018-10-03] MEDS: PANTOPRAZOLE SODIUM 40 MG VIAL IV SCH (05:29)
[2018-10-03] MEDS: TRAMADOL HCL 50 MG TABLET PO PRN (06:02)
[2018-10-03 06:43] LABS: HEMATOCRIT 41.6 % (36.0-47.0); HEMOGLOBIN 13.9 g/dL (12.0-15.5); MEAN CORPUSCULAR HEMOGLOBIN 34.1 pg (27.0-33.4); MEAN CORPUSCULAR HGB CONC 33.5 g/dL (32.0-36.0); MEAN CORPUSCULAR VOLUME 102 fl (80-97); PLATELET COUNT 122 10^3/uL (150-450); RED BLOOD COUNT 4.08 10^6/uL (3.72-5.28); RED CELL DISTRIBUTION WIDTH 15.1 % (11.5-14.0); WHITE BLOOD COUNT 6.4 10^3/uL (4.0-10.5)
[2018-10-03 07:12] LABS: ALBUMIN 2.5 g/dL (3.5-5.0); ALKALINE PHOSPHATASE 172 U/L (38-126); ANION GAP 8 (5-19); ASPARTATE AMINO TRANSFERASE 62 U/L (14-36); BILIRUBIN,DIRECT 0.6 mg/dL (0.0-0.4); BILIRUBIN,TOTAL 1.2 mg/dL (0.2-1.3); BLOOD UREA NITROGEN 7 mg/dL (7-20); CALCIUM 8.6 mg/dL (8.4-10.2); CARBON DIOXIDE 26 mmol/L (22-30); CHLORIDE 101 mmol/L (98-107); GLUCOSE 95 mg/dL (75-110); POTASSIUM 3.3 mmol/L (3.6-5.0)
[2018-10-03] MEDS: METOCLOPRAMIDE HCL 10 MG TABLET PO SCH ×2 (09:22→11:07)
[2018-10-03] MEDS: INSULIN REG, HUMAN 100 UNIT/ML 3 ML VIAL (PYX) SUBCUT SCH ×2 (09:22→11:07)
[2018-10-03] MEDS: METOPROLOL SUCCINATE 50 MG TAB.SR.24H PO SCH (09:23)
[2018-10-03] MEDS: DOCUSATE SODIUM 100 MG CAPSULE PO SCH (09:23)
[2018-10-03] MEDS: NYSTATIN TOPICAL POWDER 15 GM TP SCH (09:26)
[2018-10-03] MEDS: HYDRALAZINE HCL INJ/PF 20 MG/1 ML SDV IV PRN (09:26)
[2018-10-03] MEDS: ACETAMINOPHEN 325 MG TABLET PO PRN (11:04)
--- NOTE | 2018-10-03 13:03 | PDOC PROGRESS REPORT ---
Subjective Progress Note for:: 10/03/18 Reason For Visit: ABDOMINAL PAIN, INTRACTABLE VOMITING WITH Physical Exam Vital Signs: Temp Pulse Resp BP Pulse Ox 98.4 F 86 15 167/99 H 95 10/03/18 07:17 10/03/18 07:17 10/03/18 07:17 10/03/18 07:17 10/03/18 07:17 Intake & Output 10/02/18 10/03/18 10/04/18 06:59 06:59 06:59 Intake Total 19998 100 Output Total Balance 1999 3536 100 Weight 87.2 kg 89.8 kg General appearance: PRESENT: no acute distress Head exam: PRESENT: normocephalic Eye exam: PRESENT: EOMI Ear exam: PRESENT: normal external ear exam Mouth exam: PRESENT: moist Neck exam: PRESENT: full ROM Respiratory exam: PRESENT: clear to auscultation ubaldo Cardiovascular exam: PRESENT: rubs Pulses: PRESENT: normal radial pulses, normal femoral pulses GI/Abdominal exam: PRESENT: soft Rectal exam: PRESENT: deferred Extremities exam: PRESENT: full ROM Musculoskeletal exam: PRESENT: full ROM Neurological exam: PRESENT: alert, awake, oriented to place Psychiatric exam: PRESENT: appropriate affect Skin exam: PRESENT: dry Results Laboratory Results: 10/03/18 06:21 10/03/18 06:21 10/02/18 10/03/18 10/03/18 18:15 06:21 06:21 WBC 6.4 RBC 4.08 Hgb 13.9 Hct 41.6 MCV 102 H MCH 34.1 H MCHC 33.5 RDW 15.1 H Plt Count 122 L Sodium 134.9 L Potassium 3.3 L Chloride 101 Carbon Dioxide 26 Anion Gap 8 BUN 7 Creatinine 0.67 Est GFR ( Amer) > 60 Glucose 95 Calcium 8.6 Magnesium 1.7 Total Bilirubin 1.2 AST 62 H Alkaline Phosphatase 172 H Total Protein 5.0 L Albumin 2.5 L Urine Color VLAD Urine Appearance CLEAR Urine pH 7.0 Ur Specific [place] 1.013 Urine Protein NEGATIVE Urine Glucose (UA) NEGATIVE Urine Ketones 20 H Urine Blood NEGATIVE Urine Nitrite NEGATIVE Ur Leukocyte Esterase NEGATIVE Urine WBC (Auto) 1 Urine RBC (Auto) 1 09/29/18 09/29/18 18:57 18:57 Creatine Kinase 31 CK-MB (CK-2) 0.54 Impressions: Venous Doppler Study 09/29/18 17:37 IMPRESSION: Findings positive for bilateral lower extremity DVT, as above copyright 2011 [employer]- All Rights Reserved Chest/Abdomen CTA 09/29/18 23:36 IMPRESSION: 1. No CT evidence for pulmonary embolism 2. Evidence for mild pulmonary vascular congestion, but no acute pulmonary infiltrates. 3. Hepatomegaly with diffuse hepatic steatosis 4. Cholelithiasis Upper GI and Small Bowel X-Ray 10/02/18 07:00 IMPRESSION: Post gastric bypass with moderate size fundal pouch. Prompt emptying of the gastric pouch into small bowel loops. Normal small bowel transit time and mucosal fold pattern. Assessment & Plan - Diagnosis (1) Abdominal pain Qualifiers: Abdominal location: left upper quadrant Qualified Code(s): R10.12 - Left upper quadrant pain Is this a current diagnosis for this admission?: Yes - Plan Summary Plan Summary: She is status post gastric bypass with chronic left upper quadrant abdominal pain Reviewed her upper GI and small bowel series there is a dilated gastric pouch probable gastric stasis that could be the etiology of her chronic left upper quadrant abdominal pain She is been previously scoped for this chronic abdominal pain and has been on pr oton pump inhibitor therapy for possible ulcer at the anastomosis Recommendation 1 the patient could be discharged home on a full liquid diet with proton pump inhibitor therapy. She needs to follow-up with her bariatric surgeon for consideration of a gastric bypass revision to decrease the size of her gastric pouch which is most likely resulting in gastric stasis and either chronic gastritis or anastomotic ulcerations Please reconsult surgery as necessary
--- NOTE | 2018-10-03 13:20 | PDOC DISCHARGE SUMMARY ---
General - Admit/Disc Date/PCP Admission Date/Primary Care Provider: 09/30/18 02:13 GLENN LOREDO MD Discharge Date: 10/03/18 - Discharge Diagnosis (1) Cellulitis Is this a current diagnosis for this admission?: Yes (2) Abdominal pain Is this a current diagnosis for this admission?: Yes (3) Intractable nausea and vomiting Is this a current diagnosis for this admission?: Yes (4) Obesity (BMI 35.0-39.9 without comorbidity) Is this a current diagnosis for this admission?: Yes (5) Chronic bilateral deep venous thrombosis (DVT) of extremities Is this a current diagnosis for this admission?: Yes (6) Hypertension Is this a current diagnosis for this admission?: Yes (7) Gastroesophageal reflux disease Is this a current diagnosis for this admission?: Yes (8) History of gastric bypass Is this a current diagnosis for this admission?: Yes - Additional Information Resuscitation Status: Full Code Home Medications: Gabapentin [Neurontin 300 mg Capsule] 300 mg PO DAILY 09/30/18 Gabapentin [Neurontin 300 mg Capsule] 900 mg PO QHS 09/30/18 Hydrocodone/Acetaminophen [[place] 7.5-325 mg Tablet] 1 tab PO Q8HP PRN 09/30/18 Tizanidine HCl 4 mg PO Q8HP PRN 09/30/18 History of Present Illness History of Present Illness: BENNY LLANES is a 53 year old female who presented to the emergency room with a 3-day history of abdominal pain. Patient admits severe pain in her left upper abdomen over the last 3 days. The pain is described as a constantly present, but waxing and waning in severity, sharp aching in her left upper abdomen (subcostal and epigastric areas indicated) without radiation. 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 She denies other associated or accompanying symptoms. She admits a prior similar episode with an acute bleeding peptic ulcer. She has not identified any aggravating or ameliorating factors for her abdominal pain. In the emergency room she was found to have relatively unremarkable laboratory baldomero ues however she did have severe intractable nausea and vomiting. She was subsequently admitted to the hospital for further evaluation and treatment. 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 Her H&H is stable. Patient scheduled for upper endoscopy tomorrow. Accepted this patient. 10/01/2018: Patient seen resting in bed comfortably. She is awake alert oriented. She reports this her abdominal pain is relatively better than the previous days. This morning patient reevaluated by Dr. Strong who requested upper GI series with small bowel to be done tomorrow. Patient will be kept n.p.o. 10/02/2018: Patient seen resting in bed. She complains subjective fever and left upper arm pain and tenderness. On examination of the left upper arm there is tenderness and erythema at the injection site patient has cellulitis most probably. She has been started on cefazolin. Upper GI series reported as post a gastric bypass with moderate sized fundal pouch. Prompt emptying of the gastric pouch into small bowel loops. Normal small bowel transit time into the mucosal fold pattern. She is potential discharge for tomorrow. 10/03/2018: Patient seen and examined while she is sitting on recliner. She is awake alert oriented. She states her abdominal pain is relatively better. This afternoon patient evaluated by Dr. Flores who states "the patient could be discharged home on a full liquid diet with proton pump inhibitor therapy. She needs to follow-up with her bariatric surgeon for consideration of a gastric bypass revision to decrease the size of her gastric pouch which is most likely resulting in gastric stasis and either chronic gastritis or anastomotic ulcerations". I reviewed her labs she has mild hypokalemia with potassium of 3 which I were to replace it. Her vital signs are relatively stable. We will continue all her home medications. I will send her also with Protonix 40 mg p.o. daily. Physical Exam Vital Signs: Temp Pulse Resp BP Pulse Ox 98.4 F 86 15 167/99 H 95 10/03/18 07:17 10/03/18 07:17 10/03/18 07:17 10/03/18 07:17 10/03/18 07:17 Intake & Output 10/02/18 10/03/18 10/04/18 06:59 06:59 06:59 Intake Total 1999 3537 100 Output Total Balance 1999 3536 100 Weight 87.2 kg 89.8 kg General appearance: PRESENT: no acute distress Head exam: PRESENT: atraumatic Eye exam: PRESENT: conjunctiva pink Mouth exam: PRESENT: moist Neck exam: ABSENT: carotid bruit, JVD, lymphadenopathy, thyromegaly Respiratory exam: PRESENT: clear to auscultation ubaldo. ABSENT: rales, rhonchi, wheezes GI/Abdominal exam: PRESENT: normal bowel sounds, soft. ABSENT: distended, guarding, mass, organolmegaly, rebound, tenderness Neurological exam: PRESENT: alert, awake, oriented to person, oriented to place, oriented to time, oriented to situation Results Laboratory Results: 10/03/18 06:21 10/03/18 06:21 10/02/18 10/03/18 10/03/18 18:15 06:21 06:21 WBC 6.4 RBC 4.08 Hgb 13.9 Hct 41.6 MCV 102 H MCH 34.1 H MCHC 33.5 RDW 15.1 H Plt Count 122 L Sodium 134.9 L Potassium 3.3 L Chloride 101 Carbon Dioxide 26 Anion Gap 8 BUN 7 Creatinine 0.67 Est GFR ( Amer) > 60 Glucose 95 Calcium 8.6 Magnesium 1.7 Total Bilirubin 1.2 AST 62 H Alkaline Phosphatase 172 H Total Protein 5.0 L Albumin 2.5 L Urine Color VLAD Urine Appearance CLEAR Urine pH 7.0 Ur Specific [place] 1.013 Urine Protein NEGATIVE Urine Glucose (UA) NEGATIVE Urine Ketones 20 H Urine Blood NEGATIVE Urine Nitrite NEGATIVE Ur Leukocyte Esterase NEGATIVE Urine WBC (Auto) 1 Urine RBC (Auto) 1 09/29/18 09/29/18 18:57 18:57 Creatine Kinase 31 CK-MB (CK-2) 0.54 Impressions: Venous Doppler Study 09/29/18 17:37 IMPRESSION: Findings positive for bilateral lower extremity DVT, as above copyright 2011 [employer]- All Rights Reserved Chest/Abdomen CTA 09/29/18 23:36 IMPRESSION: 1. No CT evidence for pulmonary embolism 2. Evidence for mild pulmonary vascular congestion, but no acute pulmonary infiltrates. 3. Hepatomegaly with diffuse hepatic steatosis 4. Cholelithiasis Upper GI and Small Bowel X-Ray 10/02/18 07:00 IMPRESSION: Post gastric bypass with moderate size fundal pouch. Prompt emptying of the gastric pouch into small bowel loops. Normal small bowel transit time and mucosal fold pattern. Qualifiers - * PATIENT BEING DISCHARGED WITH ANY OF THE FOLLOWING DIAGNOSIS: No Acute Heart Failure - Is this a Heart Failure Patient?: No LVEF < 40%?: No- if no continue to question #3 3. Anticoagulant therapy for permanect/persistent/paraoxysmal Afib or Aflutter: N/A
[2018-10-03] MEDS ORDERED: POTASSIUM CHLORIDE 10 MEQ CAPSULE.ER PO ONE (14:00)
[2018-10-03 14:05] VITALS: BP 149/94
== END 2018-10-03 15:59 | disposition home or self-care (01) | DRG 603 ==
LOC: ER 16:39 → EH 09-30 02:13 → 4S 09-30 04:18
PROVIDERS: ADMIT Emergency Medicine; ATTEND Emergency Medicine
DX: L03.114 Cellulitis of left upper limb (principal); I82.503 Chronic embolism and thrombosis of unspecified deep veins of lower extremity, bilateral; R11.2 Nausea with vomiting, unspecified; E66.9 Obesity, unspecified; I10 Essential (primary) hypertension; K21.0 Gastro-esophageal reflux disease with esophagitis; Z68.35 Body mass index [BMI] 35.0-35.9, adult; Z96.649 Presence of unspecified artificial hip joint; Z60.2 Problems related to living alone; Z98.84 Bariatric surgery status; Z87.11 Personal history of peptic ulcer disease; Z87.891 Personal history of nicotine dependence; Z79.899 Other long term (current) drug therapy; Z79.891 Long term (current) use of opiate analgesic; Z82.49 Family history of ischemic heart disease and other diseases of the circulatory system
CPT/HCPCS: 36415; 71275; 74249; 80048; 80053; 80061; 80076; 81001; 82150; 82550; 82553; 82962; 83036; 83690; 83735; 84439; 84443; 84481; 85025; 85027; 85610; 85730; 93005; 93010; 93970; 96361; 96374; 96375; 99291; J0360; J0690; J0780; J1170; J1200; J1630; J1650; J2060; J2270; J2405; J2765; J3010; J3230; J3360; J3490; J7030; J7060; J7120; S0164

== ENCOUNTER 2018-10-20 10:18 | Inpatient (IN) | payer SELFPAY ==
--- NOTE | 2018-10-20 11:42 | ER Document Report ---
ED Medical Screen (RME) - General Chief Complaint: Nose Bleed Stated Complaint: ABDOMINAL PAIN Time Seen by Provider: 10/20/18 11:38 Mode of Arrival: Ambulatory Information source: Patient Notes: 53-year-old female presented to ED for complaint of nosebleed yesterday. She states that she 2 blood clots yesterday and then she went home. She states when she got home she continued to have a nosebleed. And she states it is still bleeding a little bit now. She states it did go down the back of her nose into her stomach causing her to vomit. She states after she started vomiting from the blood it aggravated her ulcer and now that is bothering her also. There is a small cut under her nose that is bleeding at this time. There is no blood coming from her nares. I have greeted and performed a rapid initial assessment of this patient. A comprehensive ED assessment and evaluation of the patient, analysis of test results and completion of medical decision making process will be conducted by an additional ED providers. TRAVEL OUTSIDE OF THE [place] IN LAST 30 DAYS: No - Related Data Allergies/Adverse Reactions: No Known Allergies Allergy (Verified 10/20/18 10:20) Past Medical History - Past Medical History Cardiac Medical History: Reports: Hx DVT - Left lower leg, right groin (required thrombectomy) Denies: Hx Coronary Artery Disease, Hx Heart Attack, Hx Hypertension, Hx Peripheral Vascular Disease, Hx Pulmonary Embolism Pulmonary Medical History: Denies: Hx Asthma, Hx Bronchitis, Hx COPD, Hx Pneumonia, Hx Tuberculosis Neurological Medical History: Denies: Hx Cerebrovascular Accident, Hx Seizures Endocrine Medical History: Denies: Hx Diabetes Mellitus Type 1, Hx Diabetes Mellitus Type 2, Hx Hyperthyroidism, Hx Hypothyroidism Renal/ Medical History: Reports: Hx Ovarian Cysts - Currently Occuring. Denies: Hx Peritoneal Dialysis GI Medical History: Reports: Hx Gastritis, Hx Gastroesophageal Reflux Disease - ulcer. Denies: Hx Cirrhosis, Hx Crohn's Disease, Hx Diverticulitis, Hx Hepatitis, Hx Hiatal Hernia, Hx Ulcerative Colitis Musculoskeltal Medical History: Reports Hx Arthritis, Denies Hx Fibromyalgia, Denies Hx Gout Skin Medical History: Denies Hx Eczema, Denies Hx Psoriasis Infectious Medical History: Denies: Hx Hepatitis Past Surgical History: Reports: Hx Bowel Surgery - gastric bypass, Hx Section - x2, Hx Gastric Bypass Surgery, Hx Gynecologic Surgery - DNC, Hx Herniorrhaphy, Hx Tonsillectomy, Hx Vascular Surgery - Thrombectomy of right groin, Other - Vena cava filter, EGD. Denies: Hx Hysterectomy, Hx Pacemaker - Immunizations Hx Diphtheria, Pertussis, Tetanus Vaccination: No Physical Exam - Vital signs Vitals: Temp Pulse Resp BP Pulse Ox 98.7 F 114 H 21 H 128/91 H 97 10/20/18 10:31 10/20/18 10:31 10/20/18 10:31 10/20/18 10:31 10/20/18 10:31 Course - Vital Signs Vital signs: Temp Pulse Resp BP Pulse Ox 98.7 F 114 H 21 H 128/91 H 97 10/20/18 10:31 10/20/18 10:31 10/20/18 10:31 10/20/18 10:31 10/20/18 10:31
[2018-10-20] MEDS ORDERED: METOCLOPRAMIDE HCL ORAL SOLN 10 MG/10 ML UDCUP PO ONE (11:43)
[2018-10-20] MEDS ORDERED: LIDOCAINE 2% VISCOUS SOLN 20 ML UDCUP PO ONE (11:43)
[2018-10-20] MEDS ORDERED: MAG HYDROX/AL HYDROX/SIMETH SUSP 30 ML UDCUP PO ONE (11:43)
[2018-10-20 12:48] LABS: ABSOLUTE LYMPHOCYTES (AUTO) 1.3 10^3/uL (0.5-4.7); ABSOLUTE MONOCYTES (AUTO) 1.3 10^3/uL (0.1-1.4); ABSOLUTE NEUT (AUTO) 8.5 10^3/uL (1.7-8.2); BASOPHILS % (AUTO) 0.3 % (0-2); EOSINOPHILS % (AUTO) 0.1 % (0-6); HEMATOCRIT 44.6 % (36.0-47.0); LYMPHOCYTES % (AUTO) 11.5 % (13-45); MEAN CORPUSCULAR HEMOGLOBIN 33.3 pg (27.0-33.4); MEAN CORPUSCULAR HGB CONC 33.8 g/dL (32.0-36.0); MEAN CORPUSCULAR VOLUME 99 fl (80-97); MONOCYTES % (AUTO) 11.6 % (3-13); PLATELET COUNT 271 10^3/uL (150-450); RED BLOOD COUNT 4.51 10^6/uL (3.72-5.28); SEGMENTED NEUTROPHILS % (AUTO) 76.5 % (42-78); TOTAL CELLS COUNTED % (AUTO) 100 %; WHITE BLOOD COUNT 11.2 10^3/uL (4.0-10.5)
[2018-10-20 13:14] LABS: ALBUMIN 3.1 g/dL (3.5-5.0); ALKALINE PHOSPHATASE 389 U/L (38-126); ANION GAP 14 (5-19); ASPARTATE AMINO TRANSFERASE 107 U/L (14-36); BILIRUBIN,DIRECT 0.7 mg/dL (0.0-0.4); BILIRUBIN,TOTAL 1.4 mg/dL (0.2-1.3); BLOOD UREA NITROGEN 13 mg/dL (7-20); CALCIUM 8.9 mg/dL (8.4-10.2); CARBON DIOXIDE 23 mmol/L (22-30); CHLORIDE 102 mmol/L (98-107); GLUCOSE 87 mg/dL (75-110); POTASSIUM 3.8 mmol/L (3.6-5.0); TOTAL PROTEIN 6.2 g/dL (6.3-8.2)
[2018-10-20 13:15] LABS: ALCOHOL < 10 mg/dL (NONE DETECTED)
[2018-10-20 14:12] LABS: APPEARANCE,URINE SLIGHTLY-CLOUDY; BILIRUBIN,URINE NEGATIVE (NEGATIVE); COLOR,URINE AMBER; GLUCOSE, URINE NEGATIVE (NEGATIVE); KETONES,URINE TRACE mg/dL (NEGATIVE); LEUKOCYTE ESTERASE,URINE MODERATE (NEGATIVE); NITRITE,URINE POSITIVE (NEGATIVE); PROTEIN,URINE NEGATIVE (NEGATIVE); URINE SPECIFIC GRAVITY 1.018
[2018-10-20] MEDS ORDERED: NORMAL SALINE 1000 ML 1,000 ML IV ONE (14:15)
--- NOTE | 2018-10-20 14:20 | ER Document Report ---
ED ENT - General Chief Complaint: Nose Bleed Stated Complaint: ABDOMINAL PAIN Time Seen by Provider: 10/20/18 11:38 Mode of Arrival: Ambulatory Notes: Patient is a 53-year-old female with a history of arthritis, DVT on Coumadin therapy, lymphedema and gastric ulcers who presents to the emergency department today with a chief complaint of nosebleed. Patient states that yesterday afternoon around 3 PM she blew her nose and saw blood clots. Patient since then she feels like she has had a continuous drip of blood in the back of her throat. Patient feels like she feels the need to cough and release the mucus that is in her throat but when she does this she vomits. Patient reports she is on warfarin for DVTs. Patient reports she does take 4 mg daily. Patient states that yesterday she has been swelling blood and this is upsetting her stomach. Patient reports having problems with her ulcer. Patient attempted to take her Protonix today but was unable to keep it down as she did vomit. Patient states she does drink 2 glasses of wine daily. Denies smoking or recreational drug use. Patient reports her normal ulcer pain is on the left side of her abdomen and she is also having new abdominal pain in the right upper quadrant. Patient reports this started this morning. Patient reports she does have a history of gallstones. TRAVEL OUTSIDE OF THE [place] IN LAST 30 DAYS: No - Related Data Allergies/Adverse Reactions: No Known Allergies Allergy (Verified 10/20/18 10:20) Past Medical History - General Information source: Patient - Social History Smoking Status: Former Smoker Frequency of alcohol use: Heavy - 2 glasses of wine per day Drug Abuse: None Lives with: Family Family History: CAD, DM, Hypertension, Malignancy - Oral cancer Patient has suicidal ideation: No Patient has homicidal ideation: No - Past Medical History Cardiac Medical History: Reports: Hx DVT - Left lower leg, right groin (required thrombectomy) Denies: Hx Coronary Artery Disease, Hx Heart Attack, Hx Hypertension, Hx Peripheral Vascular Disease, Hx Pulmonary Embolism Pulmonary Medical History: Reports: None Denies: Hx Asthma, Hx Bronchitis, Hx COPD, Hx Pneumonia, Hx Tuberculosis EENT Medical History: Reports: None Neurological Medical History: Reports: None. Denies: Hx Cerebrovascular Accident, Hx Seizures Endocrine Medical History: Reports: None. Denies: Hx Diabetes Mellitus Type 1, Hx Diabetes Mellitus Type 2, Hx Hyperthyroidism, Hx Hypothyroidism Renal/ Medical History: Reports: Hx Ovarian Cysts - Currently Occuring. Denies: Hx Peritoneal Dialysis Malignancy Medical History: Reports: None GI Medical History: Reports: Hx Gastritis, Hx Gastroesophageal Reflux Disease - ulcer. Denies: Hx Cirrhosis, Hx Crohn's Disease, Hx Diverticulitis, Hx Hepatitis, Hx Hiatal Hernia, Hx Ulcerative Colitis Musculoskeletal Medical History: Reports Hx Arthritis, Denies Hx Fibromyalgia, Denies Hx Gout Skin Medical History: Reports None, Denies Hx Eczema, Denies Hx Psoriasis Psychiatric Medical History: Reports: None Traumatic Medical History: Reports: None Infectious Medical History: Reports: None. Denies: Hx Hepatitis Past Surgical History: Reports: Hx Bowel Surgery - gastric bypass, Hx Section - x2, Hx Gastric Bypass Surgery, Hx Gynecologic Surgery - DNC, Hx Herniorrhaphy, Hx Tonsillectomy, Hx Vascular Surgery - Thrombectomy of right groin, Other - Vena cava filter, EGD. Denies: Hx Hysterectomy, Hx Pacemaker - Immunizations Hx Diphtheria, Pertussis, Tetanus Vaccination: No Review of Systems - Review of Systems Constitutional: No symptoms reported EENT: See HPI Cardiovascular: No symptoms reported Respiratory: No symptoms reported Gastrointestinal: See HPI Genitourinary: No symptoms reported Female Genitourinary: No symptoms reported Musculoskeletal: No symptoms reported Skin: No symptoms reported Hematologic/Lymphatic: No symptoms reported Neurological/Psychological: No symptoms reported Physical Exam - Vital signs Vitals: Temp Pulse Resp BP Pulse Ox 98.7 F 114 H 21 H 128/91 H 97 10/20/18 10:31 10/20/18 10:31 10/20/18 10:31 10/20/18 10:31 10/20/18 10:31 Interpretation: Tachycardic - Notes Notes: GENERAL: Well-appearing, well-nourished and in no acute distress. HEAD: Atraumatic, normocephalic. EYES: Pupils equal round and reactive to light, extraocular movements intact, sclera anicteric, conjunctiva are normal. ENT: Nares patent - mild swelling and erythema to the right turbinate, blood noted without clots or active bleeding externally, oropharynx clear without exudates. Moist mucous membranes. NECK: Normal range of motion, supple without lymphadenopathy or JVD. LUNGS: Breath sounds clear to auscultation bilaterally and equal. No wheezes rales or rhonchi. HEART: Regular rate and rhythm without murmurs, rubs or gallops. ABDOMEN: Soft, nontender, normoactive bowel sounds. No guarding, no rebound. No masses appreciated. BACK: No cervical, thoracic, lumbar midline tenderness. No saddle anesthesia, normal distal neurovascular exam. GENITOURINARY: Deferred. EXTREMITIES: Normal range of motion, bilateral edema and erythema to lower extremities (consistent with her hx. lymphedema) NEUROLOGICAL: Cranial nerves II through XII grossly intact. Normal speech, normal gait. PSYCH: Normal mood, normal affect. SKIN: Warm, Dry, normal turgor, no rashes or lesions noted. Course - Re-evaluation Re-evalutation: 10/20/18 14:50 For evaluation patient reports she was diagnosed with a urinary tract infection yesterday by her doctor and was given a prescription for oral antibiotics. Patient states she has not started those antibiotics yet. 10/20/18 14:[address] Hoover for a consult regarding the patient's ultrasound read, he is in surgery and will return my phone call when he is done. 10/20/18 15:11 I did speak with Dr. Hoover who will come and consult the patient. He does recommend the initiation of IV antibiotics. He does state to contact the hospitalist for admission as the patient does have a history of DVTs and is currently on Coumadin. 10/20/18 15:18 I did speak with the patient to verify her medical history. Patient reports she does have a history of DVTs over the past few years and last known was a few weeks ago in both legs. Patient reports at that time she was placed on Coumadin 4 mg daily. Will attempt Afrin nasal spray as the patient reports still feeling like she has blood dripping in the back of her throat. No active external nose bleed. 10/20/18 15:37 I did speak with Dr. Merritt who will admit the patient. Dr. Hoover to consult. 10/20/18 16:17 Reevaluation patient is resting comfortably. No active external nosebleed noted. I did visualize the back of the patient's throat which did reveal a mixture of blood and mucus. Patient states her abdomen feels sore does not have any vomiting. Abdomen is soft and minimally tender in the right upper quadrant and epigastric area. I did speak with Dr. Merritt and the pharmacist, we do not have prothrombin complex concentrate here at this facility. Pharmacy does recommend 5 mg of vitamin K orally. I did discuss this with Dr. Merritt who is the admitting who would like to initiate 5 mg of vitamin K orally as well as 1 unit of fresh frozen plasma due to the patient's possible cholecystitis and need for possible emergent surgery. 10/20/18 17:21 I did re-evaluate after the patient received Afrin to the right nare. There is no active bleeding and I did visualize the back of the throat. There does appear to be a less amount of mucus and blood. Patient has had no vomiting. My suspicion at the time is low for an active bleed. I did inform the patient to immediately let us know if she does develop the feeling to the back of her throat like blood is dripping or if she has blood coming out of her nose. - Vital Signs Vital signs: Temp Pulse Resp BP Pulse Ox 98.9 F 103 H 16 134/94 H 98 10/20/18 14:45 10/20/18 14:45 10/20/18 14:45 10/20/18 14:45 10/20/18 14:45 - Laboratory Result Diagrams: 10/20/18 12:26 10/20/18 12:26 Laboratory results interpreted by me: 10/20/18 10/20/18 10/20/18 12:18 12:26 12:26 WBC 11.2 H MCV 99 H RDW 15.0 H Lymph % (Auto) 11.5 L Absolute Neuts (auto) 8.5 H PT INR APTT Total Bilirubin 1.4 H Direct Bilirubin 0.7 H AST 107 H Alkaline Phosphatase 389 H Total Protein 6.2 L Albumin 3.1 L Lipase 21.1 L Urine Ketones TRACE H Urine Blood LARGE H Urine Nitrite POSITIVE H Urine Urobilinogen 4.0 H Ur Leukocyte Esterase MODERATE H 10/20/18 12:26 WBC MCV RDW Lymph % (Auto) Absolute Neuts (auto) PT 83.7 H* INR 10.06 H* APTT 135.1 H* Total Bilirubin Direct Bilirubin AST Alkaline Phosphatase Total Protein Albumin Lipase Urine Ketones Urine Blood Urine Nitrite Urine Urobilinogen Ur Leukocyte Esterase 10/20/18 15:03 Laboratory 10/20/18 10/20/18 10/20/18 12:18 12:18 12:26 WBC 11.2 H RBC 4.51 Hgb 15.0 Hct 44.6 MCV 99 H MCH 33.3 MCHC 33.8 RDW 15.0 H Plt Count 271 Lymph % (Auto) 11.5 L [place]nn % (Auto) 11.6 Eos % (Auto) 0.1 Baso % (Auto) 0.3 Absolute Neuts (auto) 8.5 H Absolute Lymphs (auto) 1.3 Absolute Monos (auto) 1.3 Absolute Eos (auto) 0.0 Absolute Basos (auto) 0.0 Seg Neutrophils % 76.5 Sodium Potassium Chloride Carbon Dioxide Anion Gap BUN Creatinine Est GFR ( Amer) Est GFR (MDRD) Non-Af Glucose Calcium Total Bilirubin Direct Bilirubin Neonat Total Bilirubin Neonat Direct Bilirubin Neonat Indirect Bili AST ALT Alkaline Phosphatase Total Protein Albumin Lipase Urine Color VLAD Urine Appearance SLIGHTLY-CLOUDY Urine pH 5.0 Ur Specific [place] 1.018 Urine Protein NEGATIVE Urine Glucose (UA) NEGATIVE Urine Ketones TRACE H Urine Blood LARGE H Urine Nitrite POSITIVE H Urine Bilirubin NEGATIVE Urine Urobilinogen 4.0 H Ur Leukocyte Esterase MODERATE H Urine WBC (Auto) 168 Urine RBC (Auto) 39 Urine Bacteria (Auto) TRACE Squamous Epi Cells Auto 5 Urine Mucus (Auto) RARE Urine Ascorbic Acid NEGATIVE Urine Opiates Screen UNCONFIRMED POSITIVE Urine Methadone Screen NEGATIVE Ur Barbiturates Screen NEGATIVE Ur Phencyclidine Scrn NEGATIVE Ur Amphetamines Screen NEGATIVE U Benzodiazepines Scrn UNCONFIRMED POSITIVE Urine Cocaine Screen NEGATIVE U Marijuana (THC) Screen NEGATIVE Serum Alcohol 10/20/18 12:26 WBC RBC Hgb Hct MCV MCH MCHC RDW Plt Count Lymph % (Auto) [place] % (Auto) Eos % (Auto) Baso % (Auto) Absolute Neuts (auto) Absolute Lymphs (auto) Absolute Monos (auto) Absolute Eos (auto) Absolute Basos (auto) Seg Neutrophils % Sodium 139.3 Potassium 3.8 Chloride 102 Carbon Dioxide 23 Anion Gap 14 BUN 13 Creatinine 0.86 Est GFR ( Amer) > 60 Est GFR (MDRD) Non-Af > 60 Glucose 87 Calcium 8.9 Total Bilirubin 1.4 H Direct Bilirubin 0.7 H Neonat Total Bilirubin Not Reportable Neonat Direct Bilirubin Not Reportable Neonat Indirect Bili Not Reportable AST 107 H ALT 54 Alkaline Phosphatase 389 H Total Protein 6.2 L Albumin 3.1 L Lipase 21.1 L Urine Color Urine Appearance Urine pH Ur Specific [place] Urine Protein Urine Glucose (UA) Urine Ketones Urine Blood Urine Nitrite Urine Bilirubin Urine Urobilinogen Ur Leukocyte Esterase Urine WBC (Auto) Urine RBC (Auto) Urine Bacteria (Auto) Squamous Epi Cells Auto Urine Mucus (Auto) Urine Ascorbic Acid Urine Opiates Screen Urine Methadone Screen Ur Barbiturates Screen Ur Phencyclidine Scrn Ur Amphetamines Screen U Benzodiazepines Scrn Urine Cocaine Screen U Marijuana (THC) Screen Serum Alcohol < 10 - Diagnostic Test Radiology reviewed: Reports reviewed Radiology results interpreted by me: 10/20/18 15:03 Abdomen Ultrasound 10/20/18 11:42 IMPRESSION: 1. Cholelithiasis, sludge, gallbladder wall thickening and a positive Garcia's signs. These findings are suggestive of an acute cholecystitis. 2. Hepatic steatosis. Discharge - Discharge Clinical Impression: RUQ pain, Bleeding nose, History of Coumadin therapy, Nausea Urinary tract infection Qualifiers: Urinary tract infection type: acute cystitis Hematuria presence: with hematuria Qualified Code(s): N30.01 - Acute cystitis with hematuria Cholelithiasis Qualifiers: Cholelithiasis location: gallbladder Cholecystitis presence: with cholecystitis Cholecystitis acuity: acute Biliary obstruction: without biliary obstruction Qualified Code(s): K80.00 - Calculus of gallbladder with acute cholecystitis without obstruction Condition: Stable Disposition: ADMITTED INPATIENT Admitting Provider: René (Hospitalist) Unit Admitted: [facility]
--- NOTE | 2018-10-20 14:22 | RADIOLOGY REPORT (SQ) ---
EXAM DESCRIPTION: U/S ABDOMEN LIMITED W/O DOP COMPLETED DATE/TIME: 10/20/2018 2:08 pm REASON FOR STUDY: upper abdominal pain COMPARISON: Ultrasound from 02/15/2012. TECHNIQUE: Dynamic and static grayscale images acquired of the abdomen and recorded on PACS. Michael ma selected color Doppler and spectral images recorded. LIMITATIONS: None. FINDINGS: PANCREAS: The visualized portions of the pancreas appear normal. LIVER: Coarse echotexture and increased echogenicity. LIVER VASCULATURE: Normal directional flow of the main portal vein and hepatic veins. GALLBLADDER: The gallbladder wall measures approximately 4 mm in thickness, which is above the upper limits of normal. There are calculi and sludge within the gallbladder lumen. There is no pericholec ystic fluid. ULTRASOUND-DETECTED ROBB'S SIGN: Positive. INTRAHEPATIC DUCTS AND COMMON DUCT: The common bile duct measures 4 mm in diameter. There is no dila tation of the intrahepatic bile ducts. INFERIOR VENA CAVA: Normal flow. AORTA: No aneurysm. RIGHT KIDNEY: The left kidney measures 11.1 cm in length. There is no hydronephrosis. PERITONEAL AND RIGHT PLEURAL SPACE: No ascites or effusions. OTHER: No other findings. IMPRESSION: 1. Cholelithiasis, sludge, gallbladder wall thickening and a positive Robb's signs. T hese findings are suggestive of an acute cholecystitis. 2. Hepatic steatosis. TECHNICAL DOCUMENTATION: JOB ID: [id number] [employer]- All Rights Reserved Reading location - IP/workstation name: [email or web address]
[2018-10-20 14:25] LABS: URINE AMPHETAMINES SCREEN NEGATIVE; URINE BARBITURATES SCREEN NEGATIVE; URINE BENZODIAZEPINES SCREEN UNCONFIRMED POSITIVE; URINE COCAINE SCREEN NEGATIVE; URINE MARIJUANA (THC) SCREEN NEGATIVE; URINE METHADONE SCREEN NEGATIVE; URINE PHENCYCLIDINE SCREEN NEGATIVE
[2018-10-20] MEDS ORDERED: OXYMETAZOLINE HCL 0.05% NASAL SPRAY 15 ML BOTTLE NASL ONE (15:13)
[2018-10-20] MEDS ORDERED: PIPERACILLIN/TAZOBACTAM 3.375 GM VIAL IV ONE (15:20)
[2018-10-20 15:44] LABS: PROTHROMBIN TIME 83.7 SEC (11.4-15.4)
[2018-10-20 15:45] LABS: INTERNATIONAL RATION (INR) 10.06; PARTIAL THROMBOPLASTIN TIME 135.1 SEC (23.5-35.8)
[2018-10-20] MEDS ORDERED: PHYTONADIONE 5 MG TABLET PO ONE (16:23)
[2018-10-20] MEDS ORDERED: NORMAL SALINE 250 ML IV PRN (16:23)
[2018-10-20] MEDS ORDERED: ACETAMINOPHEN 325 MG TABLET PO ONE (16:27)
[2018-10-20] MEDS ORDERED: IPRATROPIUM/ALBUTEROL 0.5-2.5 MG/3 ML AMPUL NEB PRN (17:02)
[2018-10-20] MEDS ORDERED: MAG HYDROX/AL HYDROX/SIMETH SUSP 30 ML UDCUP PO PRN (17:02)
[2018-10-20] MEDS ORDERED: DEXTROSE 40% GEL 15 GM TUBE PO PRN ×2 (17:02)
[2018-10-20] MEDS ORDERED: ONDANSETRON HCL INJ/PF 4 MG/2 ML SDV IV PRN (17:02)
[2018-10-20] MEDS ORDERED: GLUCAGON,HUMAN RECOMB 1 MG INJ SUBCUT PRN (17:02)
[2018-10-20] MEDS ORDERED: TEMAZEPAM 7.5 MG CAPSULE PO PRN (17:02)
[2018-10-20] MEDS ORDERED: PROMETHAZINE HCL INJ 25 MG/1 ML VIAL IV PRN (17:02)
[2018-10-20] MEDS ORDERED: DEXTROSE 50%-WATER 25 GM/50 ML DISP.SYRIN IV PRN ×2 (17:02)
--- NOTE | 2018-10-20 17:23 | PDOC CONSULTATION ---
Consultation Consult Date: 10/20/18 Provider Consulted: DIONE KHAN Consult reason:: acute calculus cholecystitis History of Present Illness Admission Date/PCP: 10/20/18 15:57 History of Present Illness: BENNY LLANES is a 53 year old female post lap gastric bypass(Laparoscopic 15 yrs ago at [facility]),peptic ulcer disease,DVT both legs on coumadin c/o nasal bleed with nausea/vomiting past 2 days and now with upper abdominal pains. INR is 10 and FFP ordered. US showed gallstones with thickened wall compatible with acute cholecystitis. Past Medical History Cardiac Medical History: Reports: DVT - Left lower leg, right groin (required thrombectomy) Denies: Coronary Artery Disease, Myocardial Infarction, Hypertension, Peripheral Vascular Disease, Pulmonary Embolism Pulmonary Medical History: Reports: None Denies: Asthma, Bronchitis, Chronic Obstructive Pulmonary Disease (COPD), Pneumonia, Tuberculosis EENT Medical History: Reports: None Neurological Medical History: Reports: None Denies: Seizures Endocrine Medical History: Reports: None Denies: Diabetes Mellitus Type 1, Diabetes Mellitus Type 2, Hyperthyroidism, Hypothyroidism Malignancy Medical History: Reports: None GI Medical History: Reports: Gastroesophageal Reflux Disease - ulcer Denies: Cirrhosis, Crohn's Disease, Diverticulitis, Hepatitis, Hiatal Hernia, Ulcerative Colitis Musculoskeltal Medical History: Reports: Arthritis Denies: Fibromyalgia, Gout Skin Medical History: Reports: None Denies: Eczema, Psoriasis Psychiatric Medical History: Reports: None Traumatic Medical History: Reports: None Hematology: Reports: Anemia - With GI bleed in the past Denies: Bleeding Tendencies Infectious Medical History: Reports: None Past Surgical History Past Surgical History: Reports: Section - x2, Gastric Bypass Surgery, Herniorrhaphy, Tonsillectomy, Vascular Surgery - Thrombectomy of right groin, Other - Vena cava filter, EGD Denies: Hysterectomy, Pacemaker Social History Lives with: Family Smoking Status: Former Smoker Frequency of Alcohol Use: Social Hx Recreational Drug Use: No Drugs: None Hx Prescription Drug Abuse: No Family History Family History: CAD, DM, Hypertension, Malignancy - Oral cancer Parental Family History Reviewed: Yes - father with DM Children Family History Reviewed: No Sibling(s) Family History Reviewed.: No Medication/Allergy Home Medications: Gabapentin [Neurontin 300 mg Capsule] 300 mg PO DAILY 09/30/18 Gabapentin [Neurontin 300 mg Capsule] 900 mg PO QHS 09/30/18 Hydrocodone/Acetaminophen [[place] 7.5-325 mg Tablet] 1 tab PO Q8HP PRN 09/30/18 Tizanidine HCl 4 mg PO Q8HP PRN 09/30/18 Pantoprazole Sodium [Protonix] 40 mg PO ACBRKFST #30 tablet. 10/03/18 Allergies/Adverse Reactions: No Known Allergies Allergy (Verified 10/20/18 10:20) Review of Systems Constitutional: PRESENT: as per HPI Respiratory: PRESENT: other - nasal bleed Gastrointestinal: PRESENT: abdominal pain, nausea, vomiting Physical Exam Vital Signs: Temp Pulse Resp BP Pulse Ox 98.9 F 103 H 16 134/94 H 98 10/20/18 14:45 10/20/18 14:45 10/20/18 14:45 10/20/18 14:45 10/20/18 14:45 Intake & Output 10/19/18 10/20/18 10/21/18 06:59 06:59 06:59 Intake Total 1000 Balance 1000 Weight 108.6 kg General appearance: PRESENT: mild distress Head exam: PRESENT: atraumatic Eye exam: PRESENT: conjunctiva pink Mouth exam: PRESENT: moist Neck exam: PRESENT: full ROM Respiratory exam: PRESENT: clear to auscultation ubaldo Pulses: PRESENT: normal radial pulses Vascular exam: PRESENT: normal capillary refill GI/Abdominal exam: PRESENT: soft, tenderness - tenderness RUQ and LLQ Rectal exam: PRESENT: deferred Extremities exam: PRESENT: full ROM Musculoskeletal exam: PRESENT: ambulatory Neurological exam: PRESENT: alert, oriented to person, oriented to place, oriented to time, oriented to situation Psychiatric exam: PRESENT: appropriate affect Skin exam: PRESENT: normal color, warm Results Laboratory Results: 10/20/18 12:26 10/20/18 12:26 10/20/18 10/20/18 10/20/18 12:18 12:26 12:26 WBC 11.2 H RBC 4.51 Hgb 15.0 Hct 44.6 MCV 99 H MCH 33.3 MCHC 33.8 RDW 15.0 H Plt Count 271 Seg Neutrophils % 76.5 Sodium 139.3 Potassium 3.8 Chloride 102 Carbon Dioxide 23 Anion Gap 14 BUN 13 Creatinine 0.86 Est GFR ( Amer) > 60 Glucose 87 Calcium 8.9 Total Bilirubin 1.4 H AST 107 H Alkaline Phosphatase 389 H Total Protein 6.2 L Albumin 3.1 L Lipase 21.1 L Urine Color VLAD Urine Appearance SLIGHTLY-CLOUDY Urine pH 5.0 Ur Specific [place] 1.018 Urine Protein NEGATIVE Urine Glucose (UA) NEGATIVE Urine Ketones TRACE H Urine Blood LARGE H Urine Nitrite POSITIVE H Ur Leukocyte Esterase MODERATE H Urine WBC (Auto) 168 Urine RBC (Auto) 39 Impressions: Abdomen Ultrasound 10/20/18 11:42 IMPRESSION: 1. Cholelithiasis, sludge, gallbladder wall thickening and a positive Garcia's signs. These findings are suggestive of an acute cholecystitis. 2. Hepatic steatosis. Assessment & Plan - Diagnosis (1) Bleeding nose Is this a current diagnosis for this admission?: Yes (2) RUQ pain Is this a current diagnosis for this admission?: Yes (3) Anastomotic ulcer S/P gastric bypass Is this a current diagnosis for this admission?: Yes (4) DVT (deep venous thrombosis) Is this a current diagnosis for this admission?: Yes (5) History of gastric bypass Is this a current diagnosis for this admission?: Yes (6) Intractable nausea and vomiting Is this a current diagnosis for this admission?: Yes (7) Obesity (BMI 35.0-39.9 without comorbidity) Is this a current diagnosis for this admission?: Yes (8) S/P IVC filter Is this a current diagnosis for this admission?: Yes (9) left upper quadrant abdominal pain Is this a current diagnosis for this admission?: Yes - Time Time Spent: 30 to 50 Minutes - Inpatient Certification Medical Necessity: Need Close Monitoring Due to Risk of Patient Decompensation, Need For IV Fluids, Need for IV Antibiotics, Need for Surgery - Plan Summary Plan Summary: Need to correct INR with FFP Start IV antibiotics Continue Anti ulcer regimen Will do Lap ameena when INR <1.5 May need to bridge anticoagulation with Heparin
--- NOTE | 2018-10-20 17:36 | PDOC H&P ---
History of Present Illness Admission Date/PCP: 10/20/18 15:57 History of Present Illness: BENNY LLANES is a 53 year old female past medical history of bilateral lower extremity DVT 6 years, IVC placed x5 years, used to be on Coumadin however been off of Coumadin x 1.5 for financial reason. Restarted on Coumadin on 09/29/2018. Since being restarted on Coumadin patient has not checked her INR has not been on low vitamin K diet. She also has history of gastric bypass, perforated peptic ulcer, chronic bilateral lower extremity lymphedema, chronic back pain opiate dependent. Patient presenting to ED complaining of nosebleeds and hematemesis whih she attributes to ingesting her nosebleeds. She denies any hemoptysis, melena, hematochezia, hematuria, vaginal bleeding, nose trauma. She is also complaining of generalized nonradiating sharp worse on the right upper quadrant, aggravated with movement and eating. In ED she was noted to have a PT of 83.7, INR 10.06, APTT 135.1. Chemistry showed elevated liver rhythm, UA showed hematuria and positive leukocyte esterase with elevated WBC. Abdominal ultrasound showed cholelithiasis, sludge, gallbladder wall thickening and a positive Garcia sign. Surgery was consulted for admission however the transfer patient to be admitted under hospitalist to manage underlying elevated INR first. Given 1 dose of Zosyn, 1 L of NS, p.o. vitamin K and 1 FFP. Past Medical History Cardiac Medical History: Reports: DVT - Left lower leg, right groin (required thrombectomy) Denies: Coronary Artery Disease, Myocardial Infarction, Hypertension, Peripheral Vascular Disease, Pulmonary Embolism Pulmonary Medical History: Reports: None Denies: Asthma, Bronchitis, Chronic Obstructive Pulmonary Disease (COPD), Pneumonia, Tuberculosis EENT Medical History: Reports: None Neurological Medical History: Reports: None Denies: Seizures Endocrine Medical History: Reports: None Denies: Diabetes Mellitus Type 1, Diabetes Mellitus Type 2, Hyperthyroidism, Hypothyroidism Malignancy Medical History: Reports: None GI Medical History: Reports: Gastroesophageal Reflux Disease - ulcer Denies: Cirrhosis, Crohn's Disease, Diverticulitis, Hepatitis, Hiatal Hernia, Ulcerative Colitis Musculoskeltal Medical History: Reports: Arthritis Denies: Fibromyalgia, Gout Skin Medical History: Reports: None Denies: Eczema, Psoriasis Psychiatric Medical History: Reports: None Traumatic Medical History: Reports: None Hematology: Reports: Anemia - With GI bleed in the past Denies: Bleeding Tendencies Infectious Medical History: Reports: None Past Surgical History Past Surgical History: Reports: Section - x2, Gastric Bypass Surgery, Herniorrhaphy, Tonsillectomy, Vascular Surgery - Thrombectomy of right groin, Other - Vena cava filter, EGD Denies: Hysterectomy, Pacemaker Social History Lives with: Family Smoking Status: Former Smoker Frequency of Alcohol Use: Social Hx Recreational Drug Use: No Drugs: None Hx Prescription Drug Abuse: No Family History Family History: CAD, DM, Hypertension, Malignancy - Oral cancer Parental Family History Reviewed: Yes Children Family History Reviewed: Yes Sibling(s) Family History Reviewed.: Yes Medication/Allergy Home Medications: Gabapentin [Neurontin 300 mg Capsule] 300 mg PO DAILY 09/30/18 Gabapentin [Neurontin 300 mg Capsule] 900 mg PO QHS 09/30/18 Hydrocodone/Acetaminophen [[place] 7.5-325 mg Tablet] 1 tab PO Q8HP PRN 09/30/18 Tizanidine HCl 4 mg PO Q8HP PRN 09/30/18 Pantoprazole Sodium [Protonix] 40 mg PO ACBRKFST #30 tablet. 10/03/18 Allergies/Adverse Reactions: No Known Allergies Allergy (Verified 10/20/18 10:20) Review of Systems Review of Systems: as per hpi Physical Exam Vital Signs: Temp Pulse Resp BP Pulse Ox 98.9 F 103 H 16 134/94 H 98 10/20/18 14:45 10/20/18 14:45 10/20/18 14:45 10/20/18 14:45 10/20/18 14:45 Intake & Output 10/19/18 10/20/18 10/21/18 06:59 06:59 06:59 Intake Total 1000 Balance 1000 Weight 108.6 kg General appearance: PRESENT: no acute distress, morbidly obese, well-developed, well-nourished Respiratory exam: PRESENT: clear to auscultation ubaldo. ABSENT: rales, rhonchi, wheezes Cardiovascular exam: PRESENT: RRR. ABSENT: diastolic murmur, rubs, systolic murmur GI/Abdominal exam: PRESENT: Garcia's sign, normal bowel sounds, soft, tenderness - Epigastric and right upper quadrant.. ABSENT: distended, guarding, mass, organolmegaly, rebound Musculoskeletal exam: PRESENT: tenderness - Bilateral lower extremity lymphedema and tenderness Neurological exam: PRESENT: alert, awake, oriented to person, oriented to place, oriented to time, oriented to situation, CN II-XII grossly intact. ABSENT: motor sensory deficit Results Laboratory Results: 10/20/18 12:26 10/20/18 12:26 10/20/18 10/20/18 10/20/18 12:18 12:26 12:26 WBC 11.2 H RBC 4.51 Hgb 15.0 Hct 44.6 MCV 99 H MCH 33.3 MCHC 33.8 RDW 15.0 H Plt Count 271 Seg Neutrophils % 76.5 Sodium 139.3 Potassium 3.8 Chloride 102 Carbon Dioxide 23 Anion Gap 14 BUN 13 Creatinine 0.86 Est GFR ( Amer) > 60 Glucose 87 Calcium 8.9 Total Bilirubin 1.4 H AST 107 H Alkaline Phosphatase 389 H Total Protein 6.2 L Albumin 3.1 L Lipase 21.1 L Urine Color VLAD Urine Appearance SLIGHTLY-CLOUDY Urine pH 5.0 Ur Specific [place] 1.018 Urine Protein NEGATIVE Urine Glucose (UA) NEGATIVE Urine Ketones TRACE H Urine Blood LARGE H Urine Nitrite POSITIVE H Ur Leukocyte Esterase MODERATE H Urine WBC (Auto) 168 Urine RBC (Auto) 39 Impressions: Abdomen Ultrasound 10/20/18 11:42 IMPRESSION: 1. Cholelithiasis, sludge, gallbladder wall thickening and a positive Garcia's signs. These findings are suggestive of an acute cholecystitis. 2. Hepatic steatosis. Assessment and Plan - Diagnosis (1) Supratherapeutic INR Is this a current diagnosis for this admission?: Yes Plan: PT 83.7, INR 10.06, APTT 135.1. No major active bleeding. Nosebleed has stopped. Admit to IMCU. Vitamin K. FFP. Kcentra unavailable. H&H, INR every 8 hours. Fall precaution. Coumadin education. (2) Acute cholecystitis Is this a current diagnosis for this admission?: Yes Plan: WBC 11.2. Total bili 1.4, direct bili 0.7, AST 107, ALT 54, alkaline phosphatase 389. 11/06/2018. Abdominal ultrasound positive for cholelithiasis, sludge, gallbladder wall thickening and positive Garcia sign. Surgery consulted for possible cholecystectomy. Continue empiric IV antibiotics, antiemetics, opioid and non-opioid analgesics, blood culture. (3) Chronic bilateral deep venous thrombosis (DVT) of extremities Is this a current diagnosis for this admission?: Yes Plan: IVC filter in place. Denies any history of PE. Denies any shortness of breath. Hold Coumadin due to supratherapeutic INR. Not a candidate for NOACs for financial reasons. We will start Coumadin after INR has been stabilized and patient has had her cholecystectomy. (4) Opioid dependence with current use Is this a current diagnosis for this admission?: Yes Plan: Due to chronic osteoarthritis and bilateral lower extremity pain due to severe lymphedema. Restart home meds, monitor for withdrawal, monitor vitals. Outpatient pain management referral. (5) Morbid obesity with BMI of 40.0-44.9, adult Is this a current diagnosis for this admission?: Yes Plan: BMI 41.1. Status post gastric bypass. Diet and lifestyle modification recommended. (6) Chronic acquired lymphedema Is this a current diagnosis for this admission?: Yes Plan: Due to chronic bilateral lower extremity DVT. Compression stocking, extremity elevation, outpatient vascular surgery follow- up. Patient has been evaluated by vascular surgeon in the past. (7) Bleeding nose Is this a current diagnosis for this admission?: Yes Plan: Due to #1. Currently has been stopped. As per #1. (8) Gastroesophageal reflux disease Qualifiers: Esophagitis presence: with esophagitis Qualified Code(s): K21.0 - Gastro- esophageal reflux disease with esophagitis Is this a current diagnosis for this admission?: Yes Plan: Continue PPI. Outpatient gastroenterology follow-up.
--- NOTE | 2018-10-20 17:41 | ADVANCED CARE ---
- Diagnosis (1) Supratherapeutic INR Diagnosis Current: Yes (2) Acute cholecystitis Diagnosis Current: Yes (3) Chronic bilateral deep venous thrombosis (DVT) of extremities Diagnosis Current: Yes (4) Opioid dependence with current use Diagnosis Current: Yes (5) Morbid obesity with BMI of 40.0-44.9, adult Diagnosis Current: Yes (6) Chronic acquired lymphedema Diagnosis Current: Yes (7) Bleeding nose Diagnosis Current: Yes (8) Gastroesophageal reflux disease Diagnosis Current: Yes Resuscitation Status: Full Code Discussion: Patient does not have a living will. Would like to remain full code. Patient has 2 children but she wants her Sister Maisha Miles to be making her medical decision in case she cannot make her own medical decision. Maisha Miles can be reached at [phone] Time Spent: 15 minutes
[2018-10-20] MEDS: TIZANIDINE HCL 4 MG TABLET PO SCH (17:49)
[2018-10-20] MEDS: DOCUSATE SODIUM 100 MG CAPSULE PO SCH (17:49)
[2018-10-20] MEDS: OXYCODONE-ACETAMINOPHEN 5-325 MG TABLET PO PRN (17:55)
[2018-10-20 22:09] LABS: ABSOLUTE LYMPHOCYTES (AUTO) 1.4 10^3/uL (0.5-4.7); ABSOLUTE MONOCYTES (AUTO) 0.9 10^3/uL (0.1-1.4); ABSOLUTE NEUT (AUTO) 2.5 10^3/uL (1.7-8.2); BASOPHILS % (AUTO) 0.3 % (0-2); EOSINOPHILS % (AUTO) 0.3 % (0-6); HEMATOCRIT 35.6 % (36.0-47.0); MEAN CORPUSCULAR HEMOGLOBIN 33.6 pg (27.0-33.4); MEAN CORPUSCULAR HGB CONC 33.6 g/dL (32.0-36.0); MEAN CORPUSCULAR VOLUME 100 fl (80-97); PLATELET COUNT 171 10^3/uL (150-450); RED BLOOD COUNT 3.56 10^6/uL (3.72-5.28); RED CELL DISTRIBUTION WIDTH 14.9 % (11.5-14.0); SEGMENTED NEUTROPHILS % (AUTO) 51.4 % (42-78); TOTAL CELLS COUNTED % (AUTO) 100 %; WHITE BLOOD COUNT 4.9 10^3/uL (4.0-10.5)
[2018-10-20 22:15] LABS: INTERNATIONAL RATION (INR) 3.71
[2018-10-20 22:23] LABS: PROTHROMBIN TIME 37.7 SEC (11.4-15.4)
[2018-10-20] MEDS: GABAPENTIN 300 MG CAPSULE PO SCH (23:20)
[2018-10-20] MEDS: DEXTROSE 5%-WATER 1000 ML 1,000 ML IV PRN (23:50)
[2018-10-21] MEDS: OXYCODONE-ACETAMINOPHEN 5-325 MG TABLET PO PRN ×3 (03:09→18:27)
[2018-10-21] MEDS: GABAPENTIN 300 MG CAPSULE PO SCH ×3 (05:41→21:17)
[2018-10-21] MEDS: PANTOPRAZOLE SODIUM 40 MG TABLET.DR PO SCH ×2 (05:42→18:25)
[2018-10-21 06:18] LABS: ABSOLUTE LYMPHOCYTES (AUTO) 1.5 10^3/uL (0.5-4.7); ABSOLUTE MONOCYTES (AUTO) 0.5 10^3/uL (0.1-1.4); ABSOLUTE NEUT (AUTO) 1.9 10^3/uL (1.7-8.2); BASOPHILS % (AUTO) 0.3 % (0-2); EOSINOPHILS % (AUTO) 0.7 % (0-6); HEMATOCRIT 35.8 % (36.0-47.0); HEMOGLOBIN 12.3 g/dL (12.0-15.5); LYMPHOCYTES % (AUTO) 36.9 % (13-45); MEAN CORPUSCULAR HEMOGLOBIN 33.3 pg (27.0-33.4); MEAN CORPUSCULAR HGB CONC 34.3 g/dL (32.0-36.0); MEAN CORPUSCULAR VOLUME 97 fl (80-97); MONOCYTES % (AUTO) 13.1 % (3-13); PLATELET COUNT 181 10^3/uL (150-450); RED BLOOD COUNT 3.69 10^6/uL (3.72-5.28); RED CELL DISTRIBUTION WIDTH 14.8 % (11.5-14.0); TOTAL CELLS COUNTED % (AUTO) 100 %
[2018-10-21 06:24] LABS: INTERNATIONAL RATION (INR) 3.69; PROTHROMBIN TIME 37.5 SEC (11.4-15.4)
[2018-10-21 06:36] LABS: ALBUMIN 2.3 g/dL (3.5-5.0); ALKALINE PHOSPHATASE 267 U/L (38-126); ANION GAP 6 (5-19); ASPARTATE AMINO TRANSFERASE 70 U/L (14-36); BILIRUBIN,DIRECT 0.7 mg/dL (0.0-0.4); BILIRUBIN,TOTAL 1.8 mg/dL (0.2-1.3); BLOOD UREA NITROGEN 12 mg/dL (7-20); CALCIUM 7.9 mg/dL (8.4-10.2); CARBON DIOXIDE 26 mmol/L (22-30); CHLORIDE 106 mmol/L (98-107); POTASSIUM 3.3 mmol/L (3.6-5.0); TOTAL PROTEIN 4.8 g/dL (6.3-8.2)
[2018-10-21 06:39] LABS: GLUCOSE 61 mg/dL (75-110)
[2018-10-21] MEDS: TIZANIDINE HCL 4 MG TABLET PO SCH ×2 (09:39→18:25)
[2018-10-21] MEDS: DOCUSATE SODIUM 100 MG CAPSULE PO SCH ×2 (09:39→18:25)
[2018-10-21] MEDS: CEFTRIAXONE 1 GM/D5W RTU 1 GM/50 ML RTUPB IV SCH (09:42)
[2018-10-21] MEDS ORDERED: PHYTONADIONE 5 MG TABLET PO ONE ×2 (10:25→14:03)
--- NOTE | 2018-10-21 10:26 | PDOC PROGRESS REPORT ---
Subjective Progress Note for:: 10/21/18 Subjective:: BENNY LLANES is a 53 year old female past medical history of bilateral lower extremity DVT 6 years, IVC placed x5 years, used to be on Coumadin however been off of Coumadin x 1.5 for financial reason. Restarted on Coumadin on 09/29/2018. Since being restarted on Coumadin patient has not checked her INR has not been on low vitamin K diet. She also has history of gastric bypass, perforated peptic ulcer, chronic bilateral lower extremity lymphedema, chronic back pain opiate dependent. Patient presenting to ED complaining of nosebleeds and hematemesis whih she a ttributes to ingesting her nosebleeds. She denies any hemoptysis, melena, hematochezia, hematuria, vaginal bleeding, nose trauma. She is also complaining of generalized nonradiating sharp worse on the right upper quadrant, aggravated with movement and eating. In ED she was noted to have a PT of 83.7, INR 10.06, APTT 135.1. Chemistry showed elevated liver rhythm, UA showed hematuria and positive leukocyte esterase with elevated WBC. Abdominal ultrasound showed cholelithiasis, sludge, gallbladder wall thickening and a positive Garcia sign. Surgery was consulted for admission however the transfer patient to be admitted under hospitalist to manage underlying elevated INR first. Given 1 dose of Zosyn, 1 L of NS, p.o. vitamin K and 1 FFP. 10/21/2018. No acute events overnight. Nosebleed has stopped. Abdominal pain has improved, patient is denying any fever, chills, nausea, vomiting, diarrhea, constipation or any urinary symptoms. Complaining of chronic bilateral lower extremity pain. Surgery has been delayed until INR is WNL. Reason For Visit: HEMATEMESIS,SUPRATHERAPEUTIC INR,ACUTE CHOLECYSTIT Physical Exam Vital Signs: Temp Pulse Resp BP Pulse Ox 98.6 F 98 18 127/78 H 95 10/21/18 08:07 10/21/18 08:07 10/21/18 08:07 10/21/18 08:07 10/21/18 08:07 Intake & Output 10/20/18 10/21/18 10/22/18 06:59 06:59 06:59 Intake Total 1550 Output Total 0 Balance 1550 Weight 104.1 kg General appearance: PRESENT: obese Head exam: PRESENT: atraumatic, normocephalic Respiratory exam: PRESENT: clear to auscultation ubaldo. ABSENT: rales, rhonchi, wheezes Cardiovascular exam: PRESENT: RRR. ABSENT: diastolic murmur, rubs, systolic murmur GI/Abdominal exam: PRESENT: normal bowel sounds, soft, tenderness - Epigastric a nd right upper quadrant.. ABSENT: distended, guarding, mass, organolmegaly, rebound Musculoskeletal exam: PRESENT: other - Bilateral severe lower extremity lymphedema. Neurological exam: PRESENT: alert, awake, oriented to person, oriented to place, oriented to time, oriented to situation, CN II-XII grossly intact. ABSENT: motor sensory deficit Results Laboratory Results: 10/21/18 05:39 10/21/18 05:39 10/20/18 10/20/18 10/20/18 12:18 12:26 12:26 WBC 11.2 H RBC 4.51 Hgb 15.0 Hct 44.6 MCV 99 H MCH 33.3 MCHC 33.8 RDW 15.0 H Plt Count 271 Seg Neutrophils % 76.5 Sodium 139.3 Potassium 3.8 Chloride 102 Carbon Dioxide 23 Anion Gap 14 BUN 13 Creatinine 0.86 Est GFR ( Amer) > 60 Glucose 87 Calcium 8.9 Magnesium Total Bilirubin 1.4 H AST 107 H Alkaline Phosphatase 389 H Total Protein 6.2 L Albumin 3.1 L Lipase 21.1 L Urine Color VLAD Urine Appearance SLIGHTLY-CLOUDY Urine pH 5.0 Ur Specific [place] 1.018 Urine Protein NEGATIVE Urine Glucose (UA) NEGATIVE Urine Ketones TRACE H Urine Blood LARGE H Urine Nitrite POSITIVE H Ur Leukocyte Esterase MODERATE H Urine WBC (Auto) 168 Urine RBC (Auto) 39 Blood Type Antibody Screen 10/20/18 10/20/18 10/21/18 17:05 21:58 05:39 WBC 4.9 RBC 3.56 L Hgb 12.0 D Hct 35.6 L MCV 100 H MCH 33.6 H MCHC 33.6 RDW 14.9 H Plt Count 171 Seg Neutrophils % 51.4 Sodium 138.0 Potassium 3.3 L Chloride 106 Carbon Dioxide 26 Anion Gap 6 BUN 12 Creatinine 0.84 Est GFR ( Amer) > 60 Glucose 61 L Calcium 7.9 L Magnesium 1.9 Total Bilirubin 1.8 H AST 70 H Alkaline Phosphatase 267 H Total Protein 4.8 L Albumin 2.3 L Lipase Urine Color Urine Appearance Urine pH Ur Specific [place] Urine Protein Urine Glucose (UA) Urine Ketones Urine Blood Urine Nitrite Ur Leukocyte Esterase Urine WBC (Auto) Urine RBC (Auto) Blood Type B NEGATIVE Antibody Screen NEGATIVE 10/21/18 05:39 WBC 4.0 RBC 3.69 L Hgb 12.3 Hct 35.8 L MCV 97 MCH 33.3 MCHC 34.3 RDW 14.8 H Plt Count 181 Seg Neutrophils % 49.0 Sodium Potassium Chloride Carbon Dioxide Anion Gap BUN Creatinine Est GFR ( Amer) Glucose Calcium Magnesium Total Bilirubin AST Alkaline Phosphatase Total Protein Albumin Lipase Urine Color Urine Appearance Urine pH Ur Specific [place] Urine Protein Urine Glucose (UA) Urine Ketones Urine Blood Urine Nitrite Ur Leukocyte Esterase Urine WBC (Auto) Urine RBC (Auto) Blood Type Antibody Screen Impressions: Abdomen Ultrasound 10/20/18 11:42 IMPRESSION: 1. Cholelithiasis, sludge, gallbladder wall thickening and a positive Garcia's signs. These findings are suggestive of an acute cholecystitis. 2. Hepatic steatosis. Assessment and Plan - Diagnosis (1) Supratherapeutic INR Is this a current diagnosis for this admission?: Yes Plan: INR 3.6. No sign of bleeding. PT 83.7, INR 10.06, APTT 135.1. On admission. Received vitamin K and endoscopy on admission. H&H, INR every 8 hours. Fall precaution. Coumadin education. Will start on DVT prophylaxis once INR is WNL. (2) Acute cholecystitis Is this a current diagnosis for this admission?: Yes Plan: Abdominal pain improving, liver enzymes trending down. WBC 11.2. Total bili 1.4, direct bili 0.7, AST 107, ALT 54, alkaline p hosphatase 389 on admission. 11/06/2018. Abdominal ultrasound positive for cholelithiasis, sludge, gallbladder wall thickening and positive Garcia sign. Surgery has been consulted, surgery has been delayed pending correction of INR. Continue empiric IV antibiotics, antiemetics, opioid and non-opioid analgesics, blood culture. (3) Chronic bilateral deep venous thrombosis (DVT) of extremities Is this a current diagnosis for this admission?: Yes Plan: IVC filter in place. Denies any history of PE. Denies any shortness of breath. Hold Coumadin due to supratherapeutic INR. Not a candidate for NOACs for financial reasons. We will start Coumadin after INR has been stabilized and patient has had her cholecystectomy. (4) Opioid dependence with current use Is this a current diagnosis for this admission?: Yes Plan: Due to chronic osteoarthritis and bilateral lower extremity pain due to severe lymphedema. Restart home meds, monitor for withdrawal, monitor vitals. Outpatient pain management referral. (5) Morbid obesity with BMI of 40.0-44.9, adult Is this a current diagnosis for this admission?: Yes Plan: BMI 41.1. Status post gastric bypass. Diet and lifestyle modification recommended. (6) Chronic acquired lymphedema Is this a current diagnosis for this admission?: Yes Plan: Due to chronic bilateral lower extremity DVT. Compression stocking, extremity elevation, outpatient vascular surgery follow- up. Patient has been evaluated by vascular surgeon in the past. (7) Bleeding nose Is this a current diagnosis for this admission?: Yes Plan: Due to #1. Currently has been stopped. As per #1. (8) Gastroesophageal reflux disease Qualifiers: Esophagitis presence: with esophagitis Qualified Code(s): K21.0 - Gastro- esophageal reflux disease with esophagitis Is this a current diagnosis for this admission?: Yes Plan: Continue PPI. Outpatient gastroenterology follow-up.
[2018-10-21] MEDS ORDERED: METOPROLOL TARTRATE PF/INJ 5 MG/5 ML SDV IV PRN (11:59)
[2018-10-21] MEDS ORDERED: LORAZEPAM INJ 2 MG/1 ML VIAL IV PRN (12:19)
[2018-10-21] MEDS: FOLIC ACID 1 MG TABLET PO SCH (13:32)
[2018-10-21] MEDS: THIAMINE HCL 100 MG TABLET PO SCH (13:32)
--- NOTE | 2018-10-21 14:06 | PDOC PROGRESS REPORT ---
Subjective Subjective:: Patient feels some better, tolerating full liquids. Has stockings on for chronic lymphedema Reason For Visit: HEMATEMESIS,SUPRATHERAPEUTIC INR,ACUTE CHOLECYSTIT Physical Exam Vital Signs: Temp Pulse Resp BP Pulse Ox 98.6 F 98 18 127/78 H 95 10/21/18 08:07 10/21/18 08:07 10/21/18 08:07 10/21/18 08:07 10/21/18 08:07 Intake & Output 10/20/18 10/21/18 10/22/18 06:59 06:59 06:59 Intake Total 1550 530 Output Total 0 Balance 1550 530 Weight 104.1 kg General appearance: PRESENT: no acute distress GI/Abdominal exam: PRESENT: other - Minimal right upper quadrant tenderness Results Laboratory Results: 10/21/18 05:39 10/21/18 05:39 10/20/18 10/20/18 10/20/18 12:18 17:05 21:58 WBC 4.9 RBC 3.56 L Hgb 12.0 D Hct 35.6 L MCV 100 H MCH 33.6 H MCHC 33.6 RDW 14.9 H Plt Count 171 Seg Neutrophils % 51.4 Sodium Potassium Chloride Carbon Dioxide Anion Gap BUN Creatinine Est GFR ( Amer) Glucose Calcium Magnesium Total Bilirubin AST Alkaline Phosphatase Total Protein Albumin Urine Color VLAD Urine Appearance SLIGHTLY-CLOUDY Urine pH 5.0 Ur Specific [place] 1.018 Urine Protein NEGATIVE Urine Glucose (UA) NEGATIVE Urine Ketones TRACE H Urine Blood LARGE H Urine Nitrite POSITIVE H Ur Leukocyte Esterase MODERATE H Urine WBC (Auto) 168 Urine RBC (Auto) 39 Blood Type B NEGATIVE Antibody Screen NEGATIVE 10/21/18 10/21/18 05:39 05:39 WBC 4.0 RBC 3.69 L Hgb 12.3 Hct 35.8 L MCV 97 MCH 33.3 MCHC 34.3 RDW 14.8 H Plt Count 181 Seg Neutrophils % 49.0 Sodium 138.0 Potassium 3.3 L Chloride 106 Carbon Dioxide 26 Anion Gap 6 BUN 12 Creatinine 0.84 Est GFR ( Amer) > 60 Glucose 61 L Calcium 7.9 L Magnesium 1.9 Total Bilirubin 1.8 H AST 70 H Alkaline Phosphatase 267 H Total Protein 4.8 L Albumin 2.3 L Urine Color Urine Appearance Urine pH Ur Specific [place] Urine Protein Urine Glucose (UA) Urine Ketones Urine Blood Urine Nitrite Ur Leukocyte Esterase Urine WBC (Auto) Urine RBC (Auto) Blood Type Antibody Screen Impressions: Abdomen Ultrasound 10/20/18 11:42 IMPRESSION: 1. Cholelithiasis, sludge, gallbladder wall thickening and a positive Garcia's signs. These findings are suggestive of an acute cholecystitis. 2. Hepatic steatosis. Assessment & Plan - Diagnosis (1) Over-anticoagulated Is this a current diagnosis for this admission?: Yes Plan: Impression: Patient received 1 unit of FFP and 2 doses of vitamin K; INR down to 3.69. (2) Acute cholecystitis Is this a current diagnosis for this admission?: Yes Plan: Impression: Clinically improved on IV fluids, intravenous antibiotics. Recommendations: 1. Continue to hold anticoagulation; we will give another dose of vitamin K 2. Anticipate laparoscopic, possible open cholecystectomy tomorrow with Dr. Carrasco; this was discussed with the patient (3) Chronic bilateral deep venous thrombosis (DVT) of extremities Is this a current diagnosis for this admission?: Yes (4) History of gastric bypass Is this a current diagnosis for this admission?: Yes (5) S/P IVC filter Is this a current diagnosis for this admission?: Yes
[2018-10-21 14:56] LABS: ABSOLUTE LYMPHOCYTES (AUTO) 1.3 10^3/uL (0.5-4.7); ABSOLUTE MONOCYTES (AUTO) 0.6 10^3/uL (0.1-1.4); ABSOLUTE NEUT (AUTO) 2.2 10^3/uL (1.7-8.2); BASOPHILS % (AUTO) 0.4 % (0-2); HEMATOCRIT 35.9 % (36.0-47.0); HEMOGLOBIN 12.1 g/dL (12.0-15.5); LYMPHOCYTES % (AUTO) 30.7 % (13-45); MEAN CORPUSCULAR HEMOGLOBIN 33.4 pg (27.0-33.4); MEAN CORPUSCULAR HGB CONC 33.7 g/dL (32.0-36.0); MEAN CORPUSCULAR VOLUME 99 fl (80-97); PLATELET COUNT 158 10^3/uL (150-450); RED BLOOD COUNT 3.62 10^6/uL (3.72-5.28); SEGMENTED NEUTROPHILS % (AUTO) 53.9 % (42-78); TOTAL CELLS COUNTED % (AUTO) 100 %; WHITE BLOOD COUNT 4.1 10^3/uL (4.0-10.5)
[2018-10-21 15:06] LABS: INTERNATIONAL RATION (INR) 3.92; PROTHROMBIN TIME 39.4 SEC (11.4-15.4)
[2018-10-21] MEDS: DEXTROSE 5%-WATER 1000 ML 1,000 ML IV PRN (19:39)
[2018-10-21 22:51] LABS: ABSOLUTE LYMPHOCYTES (AUTO) 1.7 10^3/uL (0.5-4.7); ABSOLUTE MONOCYTES (AUTO) 0.7 10^3/uL (0.1-1.4); ABSOLUTE NEUT (AUTO) 2.1 10^3/uL (1.7-8.2); BASOPHILS % (AUTO) 0.6 % (0-2); HEMATOCRIT 35.6 % (36.0-47.0); LYMPHOCYTES % (AUTO) 37.4 % (13-45); MEAN CORPUSCULAR HEMOGLOBIN 33.6 pg (27.0-33.4); MEAN CORPUSCULAR HGB CONC 33.8 g/dL (32.0-36.0); MEAN CORPUSCULAR VOLUME 99 fl (80-97); MONOCYTES % (AUTO) 15.4 % (3-13); PLATELET COUNT 170 10^3/uL (150-450); RED BLOOD COUNT 3.58 10^6/uL (3.72-5.28); RED CELL DISTRIBUTION WIDTH 14.5 % (11.5-14.0); SEGMENTED NEUTROPHILS % (AUTO) 45.6 % (42-78); TOTAL CELLS COUNTED % (AUTO) 100 %; WHITE BLOOD COUNT 4.6 10^3/uL (4.0-10.5)
[2018-10-21 22:59] LABS: INTERNATIONAL RATION (INR) 3.92; PROTHROMBIN TIME 39.4 SEC (11.4-15.4)
[2018-10-22 04:46] LABS: INTERNATIONAL RATION (INR) 3.85; PROTHROMBIN TIME 38.8 SEC (11.4-15.4)
[2018-10-22 04:47] LABS: PARTIAL THROMBOPLASTIN TIME 82.3 SEC (23.5-35.8)
[2018-10-22 04:55] LABS: ALKALINE PHOSPHATASE 231 U/L (38-126); ANION GAP 6 (5-19); ASPARTATE AMINO TRANSFERASE 71 U/L (14-36); BILIRUBIN,DIRECT 0.3 mg/dL (0.0-0.4); BILIRUBIN,TOTAL 1.1 mg/dL (0.2-1.3); BLOOD UREA NITROGEN 8 mg/dL (7-20); CALCIUM 7.6 mg/dL (8.4-10.2); CARBON DIOXIDE 24 mmol/L (22-30); CHLORIDE 106 mmol/L (98-107); GLUCOSE 91 mg/dL (75-110); POTASSIUM 3.2 mmol/L (3.6-5.0); TOTAL PROTEIN 4.4 g/dL (6.3-8.2)
[2018-10-22] MEDS: OXYCODONE-ACETAMINOPHEN 5-325 MG TABLET PO PRN ×2 (06:31→22:21)
[2018-10-22] MEDS: PANTOPRAZOLE SODIUM 40 MG TABLET.DR PO SCH ×2 (06:32→17:17)
[2018-10-22] MEDS: GABAPENTIN 300 MG CAPSULE PO SCH ×3 (06:32→21:13)
[2018-10-22] MEDS ORDERED: PHYTONADIONE 5 MG TABLET PO ONE (07:00)
[2018-10-22] MEDS ORDERED: POTASSIUM CHLORIDE 10 MEQ CAPSULE.ER PO ONE (07:26)
--- NOTE | 2018-10-22 09:12 | PDOC PROGRESS REPORT ---
Subjective Progress Note for:: 10/22/18 Subjective:: BENNY LLANES is a 53 year old female past medical history of bilateral lower extremity DVT 6 years, IVC placed x5 years, used to be on Coumadin however been off of Coumadin x 1.5 for financial reason. Restarted on Coumadin on 09/29/2018. Since being restarted on Coumadin patient has not checked her INR has not been on low vitamin K diet. She also has history of gastric bypass, perforated peptic ulcer, chronic bilateral lower extremity lymphedema, chronic back pain opiate dependent. Patient presenting to ED complaining of nosebleeds and hematemesis whih she a ttributes to ingesting her nosebleeds. She denies any hemoptysis, melena, hematochezia, hematuria, vaginal bleeding, nose trauma. She is also complaining of generalized nonradiating sharp worse on the right upper quadrant, aggravated with movement and eating. In ED she was noted to have a PT of 83.7, INR 10.06, APTT 135.1. Chemistry showed elevated liver rhythm, UA showed hematuria and positive leukocyte esterase with elevated WBC. Abdominal ultrasound showed cholelithiasis, sludge, gallbladder wall thickening and a positive Garcia sign. Surgery was consulted for admission however the transfer patient to be admitted under hospitalist to manage underlying elevated INR first. Given 1 dose of Zosyn, 1 L of NS, p.o. vitamin K and 1 FFP. 10/21/2018. No acute events overnight. Nosebleed has stopped. Abdominal pain has improved, patient is denying any fever, chills, nausea, vomiting, diarrhea, constipation or any urinary symptoms. Complaining of chronic bilateral lower extremity pain. Surgery has been delayed until INR is WNL. 10/22/2018. Abdominal pain and nausea vomiting has much improved, nosebleed has stopped. INR is 3.85 today, liver enzymes trending down, vitals WNL. Urine culture growing gram-negative rods. And is pending surgical evaluation for possible cholecystectomy. Denies any fever, chills, nausea, vomiting, diarrhea, constipation or any urinary symptoms. Reason For Visit: HEMATEMESIS,SUPRATHERAPEUTIC INR,ACUTE CHOLECYSTIT Physical Exam Vital Signs: Temp Pulse Resp BP Pulse Ox 98.5 F 71 16 111/76 99 10/22/18 07:58 10/22/18 07:58 10/22/18 07:58 10/22/18 07:58 10/22/18 07:58 Intake & Output 10/21/18 10/22/18 10/23/18 06:59 06:59 06:59 Intake Total 1550 2010 0 Output Total 0 1250 Balance 1550 760 0 Weight 104.1 kg 114 kg General appearance: PRESENT: morbidly obese Respiratory exam: PRESENT: clear to auscultation ubaldo. ABSENT: rales, rhonchi, wheezes Cardiovascular exam: PRESENT: RRR. ABSENT: diastolic murmur, rubs, systolic mur mur GI/Abdominal exam: PRESENT: normal bowel sounds, soft, tenderness. ABSENT: distended, guarding, mass, organolmegaly, rebound Musculoskeletal exam: PRESENT: tenderness, other - Severe bilateral lower extremity lymphedema. No sign of active infection or cellulitis. Neurological exam: PRESENT: alert, awake, oriented to person, oriented to place, oriented to time, oriented to situation, CN II-XII grossly intact. ABSENT: motor sensory deficit Results Laboratory Results: 10/21/18 22:30 10/22/18 04:12 10/20/18 10/21/18 10/21/18 17:05 14:35 22:30 WBC 4.1 4.6 RBC 3.62 L 3.58 L Hgb 12.1 12.0 Hct 35.9 L 35.6 L MCV 99 H 99 H MCH 33.4 33.6 H MCHC 33.7 33.8 RDW 15.0 H 14.5 H Plt Count 158 170 Seg Neutrophils % 53.9 45.6 Sodium Potassium Chloride Carbon Dioxide Anion Gap BUN Creatinine Est GFR ( Amer) Glucose Calcium Magnesium Total Bilirubin AST Alkaline Phosphatase Total Protein Albumin Blood Type B NEGATIVE Antibody Screen NEGATIVE 10/22/18 04:12 WBC RBC Hgb Hct MCV MCH MCHC RDW Plt Count Seg Neutrophils % Sodium 135.7 L Potassium 3.2 L Chloride 106 Carbon Dioxide 24 Anion Gap 6 BUN 8 Creatinine 0.80 Est GFR ( Amer) > 60 Glucose 91 Calcium 7.6 L Magnesium 2.0 Total Bilirubin 1.1 AST 71 H Alkaline Phosphatase 231 H Total Protein 4.4 L Albumin 2.0 L Blood Type Antibody Screen Impressions: Abdomen Ultrasound 10/20/18 11:42 IMPRESSION: 1. Cholelithiasis, sludge, gallbladder wall thickening and a positive Garcia's signs. These findings are suggestive of an acute cholecystitis. 2. Hepatic steatosis. Assessment and Plan - Diagnosis (1) Supratherapeutic INR Is this a current diagnosis for this admission?: Yes Plan: INR 3.8. No sign of bleeding. PT 83.7, INR 10.06, APTT 135.1. On admission. Has received 3 doses of vitamin K since admission. Status post 2 FFP transfusion. H&H, INR every 8 hours. Fall precaution. Coumadin education. Will start on DVT prophylaxis once INR is WNL. (2) Acute cholecystitis Is this a current diagnosis for this admission?: Yes Plan: Afebrile, liver enzymes trending down, abdominal pain improving, cultures negative so far. Day 3 IV antibiotics. Day 3 IV ceftriaxone. Cultures negative so far. WBC 11.2. Total bili 1.4, direct bili 0.7, AST 107, ALT 54, alkaline phosphatase 389 on admission. 11/06/2018. Abdominal ultrasound positive for cholelithiasis, sludge, gallbladder wall thickening and positive Garcia sign. Surgery has been consulted, surgery has been delayed pending correction of INR. Continue empiric IV antibiotics, antiemetics, opioid and non-opioid analgesics, blood culture. (3) Chronic bilateral deep venous thrombosis (DVT) of extremities Is this a current diagnosis for this admission?: Yes Plan: IVC filter in place. Denies any history of PE. Denies any shortness of breath. Hold Coumadin due to supratherapeutic INR. Not a candidate for NOACs for financial reasons. We will start Coumadin after INR has been stabilized and patient has had her cholecystectomy. (4) Opioid dependence with current use Is this a current diagnosis for this admission?: Yes Plan: Due to chronic osteoarthritis and bilateral lower extremity pain due to severe lymphedema. Restart home meds, monitor for withdrawal, monitor vitals. Outpatient pain management referral. (5) Morbid obesity with BMI of 40.0-44.9, adult Is this a current diagnosis for this admission?: Yes Plan: BMI 41.1. Status post gastric bypass. Diet and lifestyle modification recommended. (6) Chronic acquired lymphedema Is this a current diagnosis for this admission?: Yes Plan: Due to chronic bilateral lower extremity DVT. Compression stocking, extremity elevation, outpatient vascular surgery follow- up. Patient has been evaluated by vascular surgeon in the past. (7) Bleeding nose Is this a current diagnosis for this admission?: Yes Plan: Due to #1. Currently has been stopped. As per #1. (8) Gastroesophageal reflux disease Qualifiers: Esophagitis presence: with esophagitis Qualified Code(s): K21.0 - Gastro- esophageal reflux disease with esophagitis Is this a current diagnosis for this admission?: Yes Plan: Continue PPI. Outpatient gastroenterology follow-up. (9) Hypokalemia Is this a current diagnosis for this admission?: Yes Plan: Replaced. BMP tomorrow.
[2018-10-22] MEDS: CEFTRIAXONE 1 GM/D5W RTU 1 GM/50 ML RTUPB IV SCH (09:16)
[2018-10-22] MEDS: DEXTROSE 5%-WATER 1000 ML 1,000 ML IV PRN ×2 (09:19→22:19)
[2018-10-22] MEDS: FOLIC ACID 1 MG TABLET PO SCH (09:48)
[2018-10-22] MEDS: THIAMINE HCL 100 MG TABLET PO SCH (09:48)
[2018-10-22] MEDS: TIZANIDINE HCL 4 MG TABLET PO SCH ×2 (09:48→17:17)
[2018-10-22] MEDS: DOCUSATE SODIUM 100 MG CAPSULE PO SCH ×2 (09:48→17:17)
--- NOTE | 2018-10-22 11:57 | PDOC PROGRESS REPORT ---
Subjective Subjective:: Patient has no complaints, tolerating full liquids; INR 3.85 this morning, surgery canceled Reason For Visit: HEMATEMESIS,SUPRATHERAPEUTIC INR,ACUTE CHOLECYSTIT Physical Exam Vital Signs: Temp Pulse Resp BP Pulse Ox 98.7 F 71 16 124/73 99 10/22/18 09:10 10/22/18 07:58 10/22/18 07:58 10/22/18 09:10 10/22/18 07:58 Intake & Output 10/21/18 10/22/18 10/23/18 06:59 06:59 06:59 Intake Total 1850 2009 135 Output Total 0 1250 Balance 0695 382 9953 Weight 104.1 kg 114 kg General appearance: PRESENT: no acute distress GI/Abdominal exam: PRESENT: other - Mild tenderness right upper quadrant Results Laboratory Results: 10/21/18 22:30 10/22/18 04:12 10/20/18 10/21/18 10/21/18 17:05 14:35 22:30 WBC 4.1 4.6 RBC 3.62 L 3.58 L Hgb 12.1 12.0 Hct 35.9 L 35.6 L MCV 99 H 99 H MCH 33.4 33.6 H MCHC 33.7 33.8 RDW 15.0 H 14.5 H Plt Count 158 170 Seg Neutrophils % 53.9 45.6 Sodium Potassium Chloride Carbon Dioxide Anion Gap BUN Creatinine Est GFR ( Amer) Glucose Calcium Magnesium Total Bilirubin AST Alkaline Phosphatase Total Protein Albumin Blood Type B NEGATIVE Antibody Screen NEGATIVE 10/22/18 04:12 WBC RBC Hgb Hct MCV MCH MCHC RDW Plt Count Seg Neutrophils % Sodium 135.7 L Potassium 3.2 L Chloride 106 Carbon Dioxide 24 Anion Gap 6 BUN 8 Creatinine 0.80 Est GFR ( Amer) > 60 Glucose 91 Calcium 7.6 L Magnesium 2.0 Total Bilirubin 1.1 AST 71 H Alkaline Phosphatase 231 H Total Protein 4.4 L Albumin 2.0 L Blood Type Antibody Screen Impressions: Abdomen Ultrasound 10/20/18 11:42 IMPRESSION: 1. Cholelithiasis, sludge, gallbladder wall thickening and a positive Garcia's signs. These findings are suggestive of an acute cholecystitis. 2. Hepatic steatosis. Assessment & Plan - Diagnosis (1) Over-anticoagulated Is this a current diagnosis for this admission?: Yes Plan: Impression: Still over anticoagulated, and felt to be at increased risk for bleeding during planned laparoscopic cholecystectomy. Discussed with Dr. Colvin, anesthesiologist, and Dr. Riggs, hospitalist. Will cancel surgery for today Plan: 1. We will transfuse 1 unit of FFP 2. Repost patient for surgery tomorrow to be performed by surgicalist of the day (2) Acute cholecystitis Is this a current diagnosis for this admission?: Yes (3) Chronic bilateral deep venous thrombosis (DVT) of extremities Is this a current diagnosis for this admission?: Yes (4) History of gastric bypass Is this a current diagnosis for this admission?: Yes (5) S/P IVC filter Is this a current diagnosis for this admission?: Yes
[2018-10-23] MEDS: PANTOPRAZOLE SODIUM 40 MG TABLET.DR PO SCH ×2 (06:13→17:34)
[2018-10-23] MEDS: GABAPENTIN 300 MG CAPSULE PO SCH ×3 (06:13→22:02)
[2018-10-23 07:40] LABS: INTERNATIONAL RATION (INR) 1.93; PROTHROMBIN TIME 22.3 SEC (11.4-15.4)
[2018-10-23] MEDS: OXYCODONE-ACETAMINOPHEN 5-325 MG TABLET PO PRN ×3 (08:50→22:02)
[2018-10-23] MEDS: DEXTROSE 5%-WATER 1000 ML 1,000 ML IV PRN ×2 (08:54→22:15)
--- NOTE | 2018-10-23 09:54 | PDOC PROGRESS REPORT ---
Subjective Progress Note for:: 10/23/18 Subjective:: Feels okay. Reason For Visit: HEMATEMESIS,SUPRATHERAPEUTIC INR,ACUTE CHOLECYSTIT Physical Exam Vital Signs: Temp Pulse Resp BP Pulse Ox 98.6 F 95 17 148/87 H 100 10/23/18 07:58 10/23/18 07:58 10/23/18 07:58 10/23/18 07:58 10/23/18 07:58 Intake & Output 10/22/18 10/23/18 10/24/18 06:59 06:59 06:59 Intake Total 2009 2194 1000 Output Total 0 3850 Balance 760 -1655 1000 Weight 114 kg 113 kg General appearance: PRESENT: no acute distress, cooperative Respiratory exam: PRESENT: clear to auscultation ubaldo Cardiovascular exam: PRESENT: RRR GI/Abdominal exam: PRESENT: other - Soft, nondistended, tender in the right upper quadrant without peritoneal signs. Results Laboratory Results: 10/21/18 22:30 10/23/18 07:05 Sodium Cancelled Potassium Cancelled Chloride Cancelled Carbon Dioxide Cancelled Anion Gap Cancelled BUN Cancelled Creatinine Cancelled Est GFR ( Amer) Cancelled Est GFR (Non-Af Amer) Cancelled Glucose Cancelled Calcium Cancelled Magnesium Cancelled Total Bilirubin Cancelled AST Cancelled Alkaline Phosphatase Cancelled Total Protein Cancelled Albumin Cancelled Impressions: Abdomen Ultrasound 10/20/18 11:42 IMPRESSION: 1. Cholelithiasis, sludge, gallbladder wall thickening and a posi tive Garcia's signs. These findings are suggestive of an acute cholecystitis. 2. Hepatic steatosis. Assessment & Plan - Diagnosis (1) Acute cholecystitis Is this a current diagnosis for this admission?: Yes Plan: Patient does require a cholecystectomy however her INR is still too high. Suspect that her surgery will be difficult due to the number of days she has had symptoms, elevation of her LFTs, obesity, and appearance on ultrasound. Will attempt to correct her INR to a much more reasonable level prior to taking her to surgery either later today or tomorrow.
[2018-10-23] MEDS ORDERED: NORMAL SALINE 250 ML IV PRN ×2 (10:02)
--- NOTE | 2018-10-23 10:47 | PDOC PROGRESS REPORT ---
Subjective Progress Note for:: 10/23/18 Subjective:: BENNY LLANES is a 53 year old female past medical history of bilateral lower extremity DVT 6 years, IVC placed x5 years, used to be on Coumadin however been off of Coumadin x 1.5 for financial reason. Restarted on Coumadin on 09/29/2018. Since being restarted on Coumadin patient has not checked her INR has not been on low vitamin K diet. She also has history of gastric bypass, perforated peptic ulcer, chronic bilateral lower extremity lymphedema, chronic back pain opiate dependent. Patient presenting to ED complaining of nosebleeds and hematemesis whih she a ttributes to ingesting her nosebleeds. She denies any hemoptysis, melena, hematochezia, hematuria, vaginal bleeding, nose trauma. She is also complaining of generalized nonradiating sharp worse on the right upper quadrant, aggravated with movement and eating. In ED she was noted to have a PT of 83.7, INR 10.06, APTT 135.1. Chemistry showed elevated liver rhythm, UA showed hematuria and positive leukocyte esterase with elevated WBC. Abdominal ultrasound showed cholelithiasis, sludge, gallbladder wall thickening and a positive Garcia sign. Surgery was consulted for admission however the transfer patient to be admitted under hospitalist to manage underlying elevated INR first. Given 1 dose of Zosyn, 1 L of NS, p.o. vitamin K and 1 FFP. 10/21/2018. No acute events overnight. Nosebleed has stopped. Abdominal pain has improved, patient is denying any fever, chills, nausea, vomiting, diarrhea, constipation or any urinary symptoms. Complaining of chronic bilateral lower extremity pain. Surgery has been delayed until INR is WNL. 10/22/2018. Abdominal pain and nausea vomiting has much improved, nosebleed has stopped. INR is 3.85 today, liver enzymes trending down, vitals WNL. Urine culture growing gram-negative rods. And is pending surgical evaluation for possible cholecystectomy. Denies any fever, chills, nausea, vomiting, diarrhea, constipation or any urinary symptoms. 10/23/2018. No acute events overnight. Patient comfortably resting in bed, abdominal pain has resolved, denies any nausea, vomiting, diarrhea, constipation or any urinary symptoms, complaining of persistent chronic arthritis pain. Surgery is on board however INR is still 1.93, plan is to give another FFP and if INR is corrected she will undergo surgery today if not possibly tomorrow. Reason For Visit: HEMATEMESIS,SUPRATHERAPEUTIC INR,ACUTE CHOLECYSTIT Physical Exam Vital Signs: Temp Pulse Resp BP Pulse Ox 98.6 F 95 17 148/87 H 100 10/23/18 07:58 10/23/18 07:58 10/23/18 07:58 10/23/18 07:58 10/23/18 07:58 Intake & Output 10/22/18 10/23/18 10/24/18 06:59 06:59 06:59 Intake Total 2009 2194 1000 Output Total 1250 3850 Balance 760 -1655 1000 Weight 114 kg 113 kg General appearance: PRESENT: morbidly obese Neck exam: ABSENT: carotid bruit, JVD, lymphadenopathy, thyromegaly Respiratory exam: PRESENT: clear to auscultation ubaldo. ABSENT: rales, rhonchi, wheezes Cardiovascular exam: PRESENT: RRR. ABSENT: diastolic murmur, rubs, systolic murmur GI/Abdominal exam: PRESENT: normal bowel sounds, soft, tenderness. ABSENT: di stended, guarding, mass, organolmegaly, rebound Extremities exam: PRESENT: +1 edema Neurological exam: PRESENT: alert, awake, oriented to person, oriented to place, oriented to time, oriented to situation, CN II-XII grossly intact. ABSENT: motor sensory deficit Skin exam: PRESENT: dry, intact, warm. ABSENT: cyanosis, rash Results Laboratory Results: 10/21/18 22:30 10/23/18 08:21 10/23/18 10/23/18 07:05 08:21 Sodium Cancelled Cancelled Potassium Cancelled Cancelled Chloride Cancelled Cancelled Carbon Dioxide Cancelled Cancelled Anion Gap Cancelled Cancelled BUN Cancelled Cancelled Creatinine Cancelled Cancelled Est GFR ( Amer) Cancelled Cancelled Est GFR (Non-Af Amer) Cancelled Cancelled Glucose Cancelled Cancelled Calcium Cancelled Cancelled Magnesium Cancelled Cancelled Total Bilirubin Cancelled Cancelled AST Cancelled Cancelled Alkaline Phosphatase Cancelled Cancelled Total Protein Cancelled Cancelled Albumin Cancelled Cancelled Impressions: Abdomen Ultrasound 10/20/18 11:42 IMPRESSION: 1. Cholelithiasis, sludge, gallbladder wall thickening and a positive Garcia's signs. These findings are suggestive of an acute cholecystitis. 2. Hepatic steatosis. Assessment and Plan - Diagnosis (1) Supratherapeutic INR Is this a current diagnosis for this admission?: Yes Plan: INR 1.96. No sign of bleeding. PT 83.7, INR 10.06, APTT 135.1. On admission. Has received 4 doses of vitamin K since admission. Status post 3 FFP transfusion. H&H, INR every 8 hours. Fall precaution. Coumadin education. Will start on DVT prophylaxis once INR is WNL. She will receive another dose of FFP today, if INR is less than 1 patient will undergo cholecystectomy today, otherwise will be reevaluated tomorrow. (2) Acute cholecystitis Is this a current diagnosis for this admission?: Yes Plan: Afebrile, liver enzymes trending down, abdominal pain improving, cultures negative so far. Day 4 IV antibiotics. Day 4 IV ceftriaxone. Cultures negative so far. WBC 11.2. Total bili 1.4, direct bili 0.7, AST 107, ALT 54, alkaline phosphatase 389 on admission. 11/06/2018. Abdominal ultrasound positive for cholelithiasis, sludge, gallbladder wall thickening and positive Garcia sign. Surgery has been consulted, surgery has been delayed pending correction of INR. Continue empiric IV antibiotics, antiemetics, opioid and non-opioid analgesics, blood culture. (3) Chronic bilateral deep venous thrombosis (DVT) of extremities Is this a current diagnosis for this admission?: Yes Plan: IVC filter in place. Denies any history of PE. Denies any shortness of breath. Hold Coumadin due to supratherapeutic INR. Not a candidate for NOACs for financial reasons. We will start Coumadin after INR has been stabilized and patient has had her cholecystectomy. (4) Opioid dependence with current use Is this a current diagnosis for this admission?: Yes Plan: Due to chronic osteoarthritis and bilateral lower extremity pain due to severe lymphedema. Restart home meds, monitor for withdrawal, monitor vitals. Outpatient pain man agement referral. (5) Morbid obesity with BMI of 40.0-44.9, adult Is this a current diagnosis for this admission?: Yes Plan: BMI 41.1. Status post gastric bypass. Diet and lifestyle modification recommended. (6) Chronic acquired lymphedema Is this a current diagnosis for this admission?: Yes Plan: Improving. Due to chronic bilateral lower extremity DVT. Compression stocking, extremity elevation, outpatient vascular surgery follow- up. Patient has been evaluated by vascular surgeon in the past. (7) Bleeding nose Is this a current diagnosis for this admission?: Yes Plan: Due to #1. Currently has been stopped. As per #1. (8) Gastroesophageal reflux disease Qualifiers: Esophagitis presence: with esophagitis Qualified Code(s): K21.0 - Gastro- esophageal reflux disease with esophagitis Is this a current diagnosis for this admission?: Yes Plan: Continue PPI. Outpatient gastroenterology follow-up. (9) Hypokalemia Is this a current diagnosis for this admission?: Yes Plan: Replaced. BMP tomorrow.
[2018-10-23] MEDS: TIZANIDINE HCL 4 MG TABLET PO SCH ×2 (11:34→17:34)
[2018-10-23] MEDS: THIAMINE HCL 100 MG TABLET PO SCH (11:34)
[2018-10-23] MEDS: DOCUSATE SODIUM 100 MG CAPSULE PO SCH ×2 (11:34→17:34)
[2018-10-23] MEDS: FOLIC ACID 1 MG TABLET PO SCH (11:34)
[2018-10-23] MEDS: CEFTRIAXONE 1 GM/D5W RTU 1 GM/50 ML RTUPB IV SCH (11:35)
[2018-10-23 11:45] LABS: ALBUMIN 2.4 g/dL (3.5-5.0); ALKALINE PHOSPHATASE 271 U/L (38-126); ANION GAP 6 (5-19); ASPARTATE AMINO TRANSFERASE 69 U/L (14-36); BILIRUBIN,DIRECT 0.5 mg/dL (0.0-0.4); BLOOD UREA NITROGEN 5 mg/dL (7-20); CALCIUM 8.2 mg/dL (8.4-10.2); CARBON DIOXIDE 24 mmol/L (22-30); CHLORIDE 107 mmol/L (98-107); GLUCOSE 84 mg/dL (75-110); POTASSIUM 4.2 mmol/L (3.6-5.0); TOTAL PROTEIN 5.2 g/dL (6.3-8.2)
[2018-10-23 15:22] LABS: INTERNATIONAL RATION (INR) 1.76; PROTHROMBIN TIME 20.7 SEC (11.4-15.4)
[2018-10-23] MEDS ORDERED: PHYTONADIONE INJ 10 MG/1 ML AMPULE SUBCUT ONE (16:00)
[2018-10-24] MEDS ORDERED: GLUCAGON,HUMAN RECOMB 1 MG INJ SUBCUT PRN (00:28)
[2018-10-24] MEDS ORDERED: DEXTROSE 50%-WATER 25 GM/50 ML DISP.SYRIN IV PRN ×2 (00:28)
[2018-10-24] MEDS ORDERED: DEXTROSE 40% GEL 15 GM TUBE PO PRN ×2 (00:28)
[2018-10-24 05:36] LABS: ALBUMIN 2.4 g/dL (3.5-5.0); ALKALINE PHOSPHATASE 228 U/L (38-126); ANION GAP 6 (5-19); ASPARTATE AMINO TRANSFERASE 57 U/L (14-36); BILIRUBIN,DIRECT 0.3 mg/dL (0.0-0.4); BILIRUBIN,TOTAL 0.8 mg/dL (0.2-1.3); BLOOD UREA NITROGEN 5 mg/dL (7-20); CALCIUM 8.1 mg/dL (8.4-10.2); CARBON DIOXIDE 27 mmol/L (22-30); CHLORIDE 105 mmol/L (98-107); GLUCOSE 102 mg/dL (75-110); TOTAL PROTEIN 5.4 g/dL (6.3-8.2)
[2018-10-24 05:38] LABS: ABSOLUTE EOSINOPHILS # (AUTO) 0.1 10^3/uL (0.0-0.6); ABSOLUTE LYMPHOCYTES (AUTO) 1.8 10^3/uL (0.5-4.7); ABSOLUTE MONOCYTES (AUTO) 0.9 10^3/uL (0.1-1.4); ABSOLUTE NEUT (AUTO) 2.4 10^3/uL (1.7-8.2); BASOPHILS % (AUTO) 0.4 % (0-2); EOSINOPHILS % (AUTO) 1.6 % (0-6); HEMOGLOBIN 13.3 g/dL (12.0-15.5); LYMPHOCYTES % (AUTO) 35.2 % (13-45); MEAN CORPUSCULAR HEMOGLOBIN 33.3 pg (27.0-33.4); MEAN CORPUSCULAR HGB CONC 33.3 g/dL (32.0-36.0); MEAN CORPUSCULAR VOLUME 100 fl (80-97); MONOCYTES % (AUTO) 16.6 % (3-13); PLATELET COUNT 169 10^3/uL (150-450); RED CELL DISTRIBUTION WIDTH 14.5 % (11.5-14.0); SEGMENTED NEUTROPHILS % (AUTO) 46.2 % (42-78); TOTAL CELLS COUNTED % (AUTO) 100 %; WHITE BLOOD COUNT 5.2 10^3/uL (4.0-10.5)
[2018-10-24 06:04] LABS: INTERNATIONAL RATION (INR) 1.66; PROTHROMBIN TIME 19.8 SEC (11.4-15.4)
[2018-10-24] MEDS: GABAPENTIN 300 MG CAPSULE PO SCH ×2 (06:36→13:39)
[2018-10-24] MEDS: PANTOPRAZOLE SODIUM 40 MG TABLET.DR PO SCH ×2 (06:36→17:27)
[2018-10-24] MEDS ORDERED: NORMAL SALINE 250 ML IV PRN (08:26)
[2018-10-24] MEDS ORDERED: HYDROCODONE/ACETAMINOPHEN 5-325 MG TABLET PO PRN (08:34)
[2018-10-24] MEDS: OXYCODONE-ACETAMINOPHEN 5-325 MG TABLET PO PRN (08:37)
--- NOTE | 2018-10-24 08:37 | Progress Note ---
Provider Note Provider Note: pt has been scheduled for lap ameena this afternoon inr 1.66 will txn additional 2 units prbc discussed risk of bleeding, injury to adjacent structures, incluiding bile ducts and hepatic vessels,underlying bowel retained stones, infection, hernias, stroke, mi, pneumonia, pulm emboli, possible pt understands risks and benefits and agrees to proceed.
--- NOTE | 2018-10-24 08:38 | Progress Note Acknowledgement ---
Progress Note Acknowledgement Progess Note Acknowledgement: I, the undersigned member of the medical staff with appropriate privileges and with supervisory authority over [Phoenix Borden], a dependent practice allied health professional, acknowledge that I have reviewed the progress notes entered on this patient, and in my professional judgment believe that the assessment made and/or any care evidenced was appropriate
[2018-10-24] MEDS: DEXTROSE 5%-WATER 1000 ML 1,000 ML IV PRN (08:42)
--- NOTE | 2018-10-24 08:46 | PDOC PROGRESS REPORT ---
Subjective Progress Note for:: 10/24/18 Reason For Visit: HEMATEMESIS,SUPRATHERAPEUTIC INR,ACUTE CHOLECYSTIT Physical Exam Vital Signs: Temp Pulse Resp BP Pulse Ox 98.3 F 53 L 16 121/73 95 10/24/18 07:26 10/24/18 07:26 10/24/18 07:26 10/24/18 07:26 10/24/18 07:26 Intake & Output 10/23/18 10/24/18 10/25/18 06:59 06:59 06:59 Intake Total 2195 2709 Output Total 3850 2154 Balance -6075 -9852 Weight 113 kg 112.5 kg General appearance: PRESENT: no acute distress, well-developed, well-nourished Neck exam: ABSENT: carotid bruit, JVD, lymphadenopathy, thyromegaly Respiratory exam: PRESENT: clear to auscultation ubaldo, other - Chest tube intact. ABSENT: rales, rhonchi, wheezes Cardiovascular exam: PRESENT: RRR. ABSENT: diastolic murmur, rubs, systolic murmur Pulses: PRESENT: normal dorsalis pedis pul Vascular exam: PRESENT: normal capillary refill GI/Abdominal exam: PRESENT: normal bowel sounds, soft. ABSENT: distended, guarding, mass, organolmegaly, rebound, tenderness Extremities exam: PRESENT: full ROM. ABSENT: calf tenderness, clubbing, pedal edema Neurological exam: PRESENT: alert, awake, oriented to person, oriented to place, oriented to time, oriented to situation, CN II-XII grossly intact. ABSENT: motor sensory deficit Psychiatric exam: PRESENT: appropriate affect, normal mood. ABSENT: homicidal ideation, suicidal ideation Skin exam: PRESENT: dry, intact, warm. ABSENT: cyanosis, rash Results Laboratory Results: 10/24/18 04:26 10/24/18 04:26 10/20/18 10/23/18 10/23/18 17:05 08:21 11:01 WBC RBC Hgb Hct MCV MCH MCHC RDW Plt Count Seg Neutrophils % Sodium Cancelled 137.4 Potassium Cancelled 4.2 Chloride Cancelled 107 Carbon Dioxide Cancelled 24 Anion Gap Cancelled 6 BUN Cancelled 5 L Creatinine Cancelled 0.74 Est GFR ( Amer) Cancelled > 60 Est GFR (Non-Af Amer) Cancelled Glucose Cancelled 84 Calcium Cancelled 8.2 L Magnesium Cancelled 2.2 Total Bilirubin Cancelled 1.0 AST Cancelled 69 H Alkaline Phosphatase Cancelled 271 H Total Protein Cancelled 5.2 L Albumin Cancelled 2.4 L Blood Type B NEGATIVE Antibody Screen NEGATIVE 10/24/18 10/24/18 04:26 04:26 WBC 5.2 RBC 4.00 Hgb 13.3 Hct 40.0 MCV 100 H MCH 33.3 MCHC 33.3 RDW 14.5 H Plt Count 169 Seg Neutrophils % 46.2 Sodium 137.5 Potassium 4.0 Chloride 105 Carbon Dioxide 27 Anion Gap 6 BUN 5 L Creatinine 0.75 Est GFR ( Amer) > 60 Est GFR (Non-Af Amer) Glucose 102 Calcium 8.1 L Magnesium 2.2 Total Bilirubin 0.8 AST 57 H Alkaline Phosphatase 228 H Total Protein 5.4 L Albumin 2.4 L Blood Type Antibody Screen Impressions: Abdomen Ultrasound 10/20/18 11:42 IMPRESSION: 1. Cholelithiasis, sludge, gallbladder wall thickening and a positive Garcia's signs. These findings are suggestive of an acute cholecystitis. 2. Hepatic steatosis. Assessment and Plan - Diagnosis (1) Supratherapeutic INR Is this a current diagnosis for this admission?: Yes Plan: INR 1.96. No sign of bleeding. PT 83.7, INR 10.06, APTT 135.1. On admission. Has received 4 doses of vitamin K since admission. Status post 3 FFP transfusion. H&H, INR every 8 hours. Fall precaution. Coumadin education. Will start on DVT prophylaxis once INR is WNL. She will receive another dose of FFP today, if INR is less than 1 patient will undergo cholecystectomy today, otherwise will be reevaluated tomorrow. 10/24/2018-INR 1.6 today. Continue to follow daily PT/INRs. Patient will und ergo cholecystectomy when INR is less than 1. We will continue to reevaluate (2) Acute cholecystitis Is this a current diagnosis for this admission?: Yes Plan: Afebrile, liver enzymes trending down, abdominal pain improving, cultures negative so far. Day 4 IV antibiotics. Day 4 IV ceftriaxone. Cultures negative so far. WBC 11.2. Total bili 1.4, direct bili 0.7, AST 107, ALT 54, alkaline phosphatase 389 on admission. 11/06/2018. Abdominal ultrasound positive for cholelithiasis, sludge, gallbladder wall thickening and positive Garcia sign. Surgery has been consulted, surgery has been delayed pending correction of INR. Continue empiric IV antibiotics, antiemetics, opioid and non-opioid analgesics, blood culture. 10/24/2018-abdominal ultrasound did show cholelithiasis, sludge and gallbladder wall thickening and a positive Garcia sign. Surgery has been consulted. Awaiting normalization of INR prior to surgical intervention. (3) Chronic bilateral deep venous thrombosis (DVT) of extremities Is this a current diagnosis for this admission?: Yes Plan: IVC filter in place. Denies any history of PE. Denies any shortness of breath. Hold Coumadin due to supratherapeutic INR. Not a candidate for NOACs for financial reasons. We will start Coumadin after INR has been stabilized and patient has had her cholecystectomy. 10/14/2018-IVC filter in place. No shortness of breath or other complaints at this time. Hold Coumadin until INR is less than 1 patient will go for cholecystectomy. Will reevaluate and reassess to reinitiate Coumadin at that time. (4) Opioid dependence with current use Is this a current diagnosis for this admission?: Yes Plan: Due to chronic osteoarthritis and bilateral lower extremity pain due to severe lymphedema. Restart home meds, monitor for withdrawal, monitor vitals. Outpatient pain management referral. 10/14/2018-continue current pain management including narcotics (5) Chronic acquired lymphedema Is this a current diagnosis for this admission?: Yes Plan: Improving. Due to chronic bilateral lower extremity DVT. Compression stocking, extremity elevation, outpatient vascular surgery follow- up. Patient has been evaluated by vascular surgeon in the past. 10/24/2018-compression stockings remain in place will elevate extremities. Patient has been evaluated by vascular surgery in the last year. (6) Bleeding nose Is this a current diagnosis for this admission?: Yes Plan: Due to #1. Currently has been stopped. As per #1. 10/24/2018-no bleeding noted at this time. Continue to follow (7) GERD with esophagitis Is this a current diagnosis for this admission?: Yes Plan: 10/24/2018-continue PPI (8) Hypokalemia Is this a current diagnosis for this admission?: Yes Plan: Replaced. BMP tomorrow. 10/24/2018-stable continue to follow daily BMPs
[2018-10-24] MEDS: DOCUSATE SODIUM 100 MG CAPSULE PO SCH ×2 (09:49→17:27)
[2018-10-24] MEDS: CEFTRIAXONE 1 GM/D5W RTU 1 GM/50 ML RTUPB IV SCH (09:49)
[2018-10-24] MEDS: TIZANIDINE HCL 4 MG TABLET PO SCH (09:49)
[2018-10-24] MEDS: THIAMINE HCL 100 MG TABLET PO SCH (09:49)
[2018-10-24] MEDS: FOLIC ACID 1 MG TABLET PO SCH (09:49)
[2018-10-24] MEDS ORDERED: ROCURONIUM BROMIDE INJ 50 MG/5 ML VIAL IV ONE (10:55)
[2018-10-24] MEDS ORDERED: DEXAMETHASONE SOD PHOSPHATE INJ 4 MG/1 ML VIAL ONE (10:55)
[2018-10-24] MEDS ORDERED: ONDANSETRON HCL INJ/PF 4 MG/2 ML SDV ONE (10:55)
[2018-10-24] MEDS ORDERED: SUCCINYLCHOLINE CHLORIDE INJ 200 MG/10 ML VIAL ONE (10:55)
[2018-10-24] MEDS ORDERED: GLYCOPYRROLATE 1 MG/5 ML VIAL ONE (10:55)
[2018-10-24] MEDS ORDERED: NEOSTIGMINE METHYLSULFATE 10 MG/10 ML VIAL ONE (10:55)
[2018-10-24] MEDS ORDERED: BUPIVACAINE HCL 0.5%-EPI 1:200000 INJ/PF 30 ML VIAL ONE (14:37)
[2018-10-24 17:05] LABS: INTERNATIONAL RATION (INR) 1.32; PROTHROMBIN TIME 16.5 SEC (11.4-15.4)
[2018-10-24 17:06] LABS: PARTIAL THROMBOPLASTIN TIME 33.1 SEC (23.5-35.8)
[2018-10-24] MEDS ORDERED: FENTANYL CITRATE INJ/PF 100 MCG/2 ML AMPUL ONE (18:51)
[2018-10-24] MEDS ORDERED: MIDAZOLAM 2 MG/2 ML INJ ONE (18:51)
[2018-10-24] MEDS ORDERED: MORPHINE SULFATE 10 MG/ML INJ ONE (18:51)
[2018-10-24] MEDS ORDERED: PROPOFOL INJ 200 MG/20 ML VIAL IV ONE (18:52)
--- NOTE | 2018-10-24 21:23 | Operative Report ---
Nonrecallable Operative Report DATE OF SURGERY: 10/24/18 PREOPERATIVE DIAGNOSIS: cholecystitis POSTOPERATIVE DIAGNOSIS: cholecystitis OPERATION: lap ameena with grams SURGEON: YOVANA SINGH ANESTHESIA: GA TISSUE REMOVED OR ALTERED: gallbladder COMPLICATIONS: none ESTIMATED BLOOD LOSS: 150cc INTRAOPERATIVE FINDINGS: see procedure note PROCEDURE: After obtaining informed consent, the patient was taken to the operating room. General Anesthesia was induced; the arms were extended, and the abdomen was exposed, and prepped and draped in a sterile fashion. Instrumentation was set up for laparoscopic cholecystectomy. Surgical plan and surgical timeout were conducted. A vertical incision was made above the umbilicus, and a verres needle was inserted uneventfully into the peritoneal cavity. Pneumoperitoneum was established. The verres needle was removed and a 5 mm trocar was inserted and a 5 mm flexible laparoscope was inserted. Visualization of the peritoneal cavity confirmed safe uneventful entry. Under direct visualization 3 additional 5 mm ports were established, one in the subxiphoid position and second in the subcostal position. Visualization of the hepatobiliary anatomy revealed no anatomic variations. A grasper was placed on the fundus of the gallbladder and the gallbladder is elevated over the right surface of the liver; a second grasper was used to grasp the infundibulum of the gallbladder. The neck of the gallbladder and junction with the cystic duct was dissected out. The Cystic artery was in its usual location medial and cephalad to the cystic duct. The cystic artery was surrounded with a right angle clamp, clipped twice proximally and divided with laparoscopic scissors. We now opened the triangle of Calot by dividing the peritoneal reflection on both the medial and lateral sides of the cystic duct infundibular junction. The critical view was obtained. We now milked the cystic duct of any possible stones, clipped the cystic duct proximately at the neck of the gallbladder we then made assisted to the dochoctomy and inserted a cholangio-Jared catheter. Intraoperative gland Jared was obtained which showed no stones in the common bile duct good flow into the duodenum both the right and left hepatic radicles were identified along cystic duct stump was also identified. We then placed 2 endoclips on the stay side of the cystic duct and divided it The gallbladder was now removed from the undersurface of the liver using hook cautery dissection. Graspers were repositioned and the gallbladder was removed uneventfully from the abdominal cavity through the super umbilical port site incision. The specimen was examined, then passed off to pathology for permanent analysis. We returned to the peritoneal cavity check for bleeding, and evidence of bile leak, and there was none. We Confirmed satisfactory placement of clips on cystic duct and cystic artery were secured . At this point we felt the operation was complete. The subcutaneous tissue was then anesthetized with quarter percent Marcaine Sponge and needle counts are correct. All ports removed under direct visualization pneumoperitoneum evacuated, and 5 mm port wounds closed with 3-0 Vicryl suture, benzoin and Steri-Strips. The patient was extubated, and taken to the recovery room in stable condition. Estimated blood loss for the procedure is 150 cc sponge needle counts were correct x2
[2018-10-24] MEDS: FENTANYL CITRATE INJ/PF 100 MCG/2 ML AMPUL ONE ×2 (21:26→21:35)
[2018-10-24] MEDS ORDERED: DIPHENHYDRAMINE HCL 50 MG/ML VIAL ONE (21:33)
[2018-10-24] MEDS: HYDRALAZINE HCL INJ/PF 20 MG/1 ML SDV ONE ×2 (21:33→21:45)
[2018-10-24] MEDS ORDERED: DIAZEPAM INJ 10 MG/2 ML DISP.SYRIN ONE (21:54)
[2018-10-24] MEDS ORDERED: LORAZEPAM INJ 2 MG/1 ML VIAL ONE (21:57)
[2018-10-25] MEDS: OXYCODONE-ACETAMINOPHEN 5-325 MG TABLET PO PRN (00:32)
[2018-10-25] MEDS: TIZANIDINE HCL 4 MG TABLET PO SCH ×3 (00:34→21:21)
[2018-10-25] MEDS: GABAPENTIN 300 MG CAPSULE PO SCH ×4 (00:34→21:21)
[2018-10-25] MEDS: DEXTROSE 5%-WATER 1000 ML 1,000 ML IV PRN (01:19)
--- NOTE | 2018-10-25 01:27 | RADIOLOGY REPORT (SQ) ---
CLINICAL HISTORY: CHOLANGIOGRAM IN OR COMPARISON: None. TECHNIQUE: [place] CHOLANGIOGRAM INTRAOPERATIVE on 10/24/2018 12:00 AM CDT IMPRESSION: Total of 88 fluoroscopic images following injection of the cystic duct. Total fluoroscopic time 0.8 minutes.
[2018-10-25] MEDS ORDERED: METOPROLOL TARTRATE PF/INJ 5 MG/5 ML SDV IV ONE (01:47)
[2018-10-25] MEDS: METOPROLOL TARTRATE PF/INJ 5 MG/5 ML SDV IV PRN ×3 (01:53→02:05)
[2018-10-25] MEDS ORDERED: MORPHINE SULFATE 10 MG/ML INJ ONE (02:20)
[2018-10-25] MEDS ORDERED: MORPHINE SULFATE 10 MG/ML INJ IV PRN ×2 (02:31)
[2018-10-25] MEDS: MORPHINE SULFATE 10 MG/ML INJ IV PRN ×2 (02:35→07:42)
[2018-10-25] MEDS ORDERED: METOPROLOL TARTRATE 100 MG TABLET PO ONE (03:00)
[2018-10-25 05:03] LABS: HEMATOCRIT 39.1 % (36.0-47.0); MEAN CORPUSCULAR HEMOGLOBIN 33.6 pg (27.0-33.4); MEAN CORPUSCULAR HGB CONC 33.2 g/dL (32.0-36.0); MEAN CORPUSCULAR VOLUME 101 fl (80-97); PLATELET COUNT 250 10^3/uL (150-450); RED BLOOD COUNT 3.86 10^6/uL (3.72-5.28); RED CELL DISTRIBUTION WIDTH 14.3 % (11.5-14.0)
[2018-10-25 05:07] LABS: WHITE BLOOD COUNT 16.8 10^3/uL (4.0-10.5)
[2018-10-25 05:20] LABS: ANION GAP 9 (5-19); BLOOD UREA NITROGEN 5 mg/dL (7-20); CALCIUM 8.7 mg/dL (8.4-10.2); CARBON DIOXIDE 23 mmol/L (22-30); CHLORIDE 105 mmol/L (98-107); GLUCOSE 173 mg/dL (75-110); POTASSIUM 4.3 mmol/L (3.6-5.0)
[2018-10-25] MEDS: PANTOPRAZOLE SODIUM 40 MG TABLET.DR PO SCH ×2 (05:57→17:55)
--- NOTE | 2018-10-25 08:27 | PDOC PROGRESS REPORT ---
Subjective Progress Note for:: 10/25/18 Subjective:: 10/25/2018-abdominal pain postsurgical Reason For Visit: HEMATEMESIS,SUPRATHERAPEUTIC INR,ACUTE CHOLECYSTIT Physical Exam Vital Signs: Temp Pulse Resp BP Pulse Ox 98.2 F 97 24 H 134/74 H 99 10/24/18 22:14 10/25/18 06:42 10/24/18 22:14 10/24/18 22:14 10/24/18 22:14 Intake & Output 10/24/18 10/25/18 10/26/18 06:59 06:59 06:59 Intake Total 2709 3878 Output Total 5150 4095 Balance -2441 -217 Weight 112.5 kg 113 kg General appearance: PRESENT: no acute distress, well-developed, well-nourished Head exam: PRESENT: atraumatic, normocephalic Eye exam: PRESENT: conjunctiva pink, EOMI, PERRLA. ABSENT: scleral icterus Ear exam: PRESENT: normal external ear exam Mouth exam: PRESENT: moist, tongue midline Neck exam: ABSENT: carotid bruit, JVD, lymphadenopathy, thyromegaly Respiratory exam: PRESENT: clear to auscultation ubaldo. ABSENT: rales, rhonchi, wheezes Cardiovascular exam: PRESENT: RRR. ABSENT: diastolic murmur, rubs, systolic murmur Pulses: PRESENT: normal dorsalis pedis pul Vascular exam: PRESENT: normal capillary refill GI/Abdominal exam: PRESENT: hypoactive bowel sounds, soft, tenderness, other - CORINNE drain noted, Steri-Strips 2 locations from laparoscopic procedure. ABSENT: distended, guarding, mass, organolmegaly, rebound Rectal exam: PRESENT: deferred Extremities exam: PRESENT: full ROM. ABSENT: calf tenderness, clubbing, pedal edema Neurological exam: PRESENT: alert, awake, oriented to person, oriented to place, oriented to time, oriented to situation, CN II-XII grossly intact. ABSENT: motor sensory deficit Psychiatric exam: PRESENT: appropriate affect, normal mood. ABSENT: homicidal ideation, suicidal ideation Skin exam: PRESENT: dry, intact, warm. ABSENT: cyanosis, rash Adult Front & Back Image: 1 - CORINNE drain 2 - Steri-Strip 3 - Steri-Strip Results Laboratory Results: 10/25/18 04:26 10/25/18 04:26 10/24/18 10/25/18 10/25/18 09:44 04:26 04:26 WBC 16.8 H D RBC 3.86 Hgb 13.0 Hct 39.1 MCV 101 H MCH 33.6 H MCHC 33.2 RDW 14.3 H Plt Count 250 Sodium 136.8 L Potassium 4.3 Chloride 105 Carbon Dioxide 23 Anion Gap 9 BUN 5 L Creatinine 0.77 Est GFR ( Amer) > 60 Glucose 173 H Calcium 8.7 Blood Type B NEGATIVE Impressions: Abdomen Ultrasound 10/20/18 11:42 IMPRESSION: 1. Cholelithiasis, sludge, gallbladder wall thickening and a positive Garcia's signs. These findings are suggestive of an acute cholecystitis. 2. Hepatic steatosis. Cholangiogram 10/24/18 00:00 IMPRESSION: Total of 88 fluoroscopic images following injection of the cystic duct. Total fluoroscopic time 0.8 minutes. Assessment and Plan - Diagnosis (1) Supratherapeutic INR Is this a current diagnosis for this admission?: Yes Plan: INR 1.96. No sign of bleeding. PT 83.7, INR 10.06, APTT 135.1. On admission. Has received 4 doses of vitamin K since admission. Status post 3 FFP transfusion. H&H, INR every 8 hours. Fall precaution. Coumadin education. Will start on DVT prophylaxis once INR is WNL. She will receive another dose of FFP today, if INR is less than 1 patient will undergo cholecystectomy today, otherwise will be reevaluated tomorrow. 10/24/2018-INR 1.6 today. Continue to follow daily PT/INRs. Patient will undergo cholecystectomy when INR is less than 1. We will continue to reevaluate 10/25/2018-INR 1.32. Patient does have CORINNE drain following surgery. She is having bloody output at this time. I have discussed this with surgical on-call and they prefer not to start her on subcu heparin or Coumadin until we have resolution of this bloody exudate. (2) Acute cholecystitis Is this a current diagnosis for this admission?: Yes Plan: Afebrile, liver enzymes trending down, abdominal pain improving, cultures neg ative so far. Day 4 IV antibiotics. Day 4 IV ceftriaxone. Cultures negative so far. WBC 11.2. Total bili 1.4, direct bili 0.7, AST 107, ALT 54, alkaline phosphatase 389 on admission. 11/06/2018. Abdominal ultrasound positive for cholelithiasis, sludge, gallbladder wall thickening and positive Garcia sign. Surgery has been consulted, surgery has been delayed pending correction of INR. Continue empiric IV antibiotics, antiemetics, opioid and non-opioid analgesics, blood culture. 10/24/2018-abdominal ultrasound did show cholelithiasis, sludge and gallbladder wall thickening and a positive Garcia sign. Surgery has been consulted. Awaiting normalization of INR prior to surgical intervention. 10/25/2018-patient underwent laparoscopic cholecystectomy yesterday. Morphine is not controlling her pain at this time I DC'd morphine and placed her on Dilaudid 1 mg IV every 3 hours PRN (3) Chronic bilateral deep venous thrombosis (DVT) of extremities Is this a current diagnosis for this admission?: Yes Plan: IVC filter in place. Denies any history of PE. Denies any shortness of breath. Hold Coumadin due to supratherapeutic INR. Not a candidate for NOACs for financial reasons. We will start Coumadin after INR has been stabilized and patient has had her cholecystectomy. 10/24/2018-IVC filter in place. No shortness of breath or other complaints at this time. Hold Coumadin until INR is less than 1 patient will go for cholecystectomy. Will reevaluate and reassess to reinitiate Coumadin at that time. 10/25/2018-IVC filter in place. Discussed with surgery this morning we will hold Coumadin or any anticoagulants until CORINNE drain is clearing out. (4) Opioid dependence with current use Is this a current diagnosis for this admission?: Yes Plan: Due to chronic osteoarthritis and bilateral lower extremity pain due to severe lymphedema. Restart home meds, monitor for withdrawal, monitor vitals. Outpatient pain management referral. 10/24/2018-continue current pain management including narcotics 10/25/2018-DC morphine. Place patient on Dilaudid 1 mg IV every 3 hours. (5) Chronic acquired lymphedema Is this a current diagnosis for this admission?: Yes Plan: Improving. Due to chronic bilateral lower extremity DVT. Compression stocking, extremity elevation, outpatient vascular surgery follow- up. Patient has been evaluated by vascular surgeon in the past. 10/24/2018-compression stockings remain in place will elevate extremities. Patient has been evaluated by vascular surgery in the last year. 10/25/2018-stable continue with compression stockings (6) Bleeding nose Is this a current diagnosis for this admission?: Yes Plan: Due to #1. Currently has been stopped. As per #1. 10/24/2018-no bleeding noted at this time. Continue to follow 10/25/2018-no bleeding at this time. (7) GERD with esophagitis Is this a current diagnosis for this admission?: Yes Plan: 10/24/2018-continue PPI 10/25/2018-continue PPI at this time (8) Hypokalemia Is this a current diagnosis for this admission?: Yes Plan: Replaced. BMP tomorrow. 10/24/2018-stable continue to follow daily BMPs 10/25/2018-stable. - Time Time Spent with patient: 15-24 minutes - Inpatient Certification Based on my medical assessment, after consideration of the patient's comorbidities, presenting symptoms, or acuity I expect that the services needed warrant INPATIENT care.: Yes I certify that my determination is in accordance with my understanding of Medicare's requirements for reasonable and necessary INPATIENT services [42 CFR 412.3e].: Yes Medical Necessity: Other - IV fluids, IV pain control
--- NOTE | 2018-10-25 08:34 | PDOC PROGRESS REPORT ---
Subjective Progress Note for:: 10/25/18 Subjective:: Feels okay. Having some right upper quadrant abdominal pain. No nausea or vomiting. Reason For Visit: HEMATEMESIS,SUPRATHERAPEUTIC INR,ACUTE CHOLECYSTIT Physical Exam Vital Signs: Temp Pulse Resp BP Pulse Ox 98.5 F 97 18 161/114 H 98 10/25/18 03:31 10/25/18 06:42 10/25/18 03:31 10/25/18 03:31 10/25/18 03:31 Intake & Output 10/24/18 10/25/18 10/26/18 06:59 06:59 06:59 Intake Total 2709 3878 Output Total 5150 4095 Balance -2441 -217 Weight 112.5 kg 113 kg General appearance: PRESENT: no acute distress, cooperative Respiratory exam: PRESENT: clear to auscultation ubaldo Cardiovascular exam: PRESENT: RRR GI/Abdominal exam: PRESENT: other - Soft, nondistended, mild right upper quadrant abdominal tenderness without peritoneal signs. Drain output is thin but blood colored. Results Laboratory Results: 10/25/18 04:26 10/25/18 04:26 10/24/18 10/25/18 10/25/18 09:44 04:26 04:26 WBC 16.8 H D RBC 3.86 Hgb 13.0 Hct 39.1 MCV 101 H MCH 33.6 H MCHC 33.2 RDW 14.3 H Plt Count 250 Sodium 136.8 L Potassium 4.3 Chloride 105 Carbon Dioxide 23 Anion Gap 9 BUN 5 L Creatinine 0.77 Est GFR ( Amer) > 60 Glucose 173 H Calcium 8.7 Blood Type B NEGATIVE Impressions: Abdomen Ultrasound 10/20/18 11:42 IMPRESSION: 1. Cholelithiasis, sludge, gallbladder wall thickening and a positive Garcia's signs. These findings are suggestive of an acute cholecystitis. 2. Hepatic steatosis. Cholangiogram 10/24/18 00:00 IMPRESSION: Total of 88 fluoroscopic images following injection of the cystic duct. Total fluoroscopic time 0.8 minutes. Assessment & Plan - Diagnosis (1) Acute cholecystitis Is this a current diagnosis for this admission?: Yes Plan: That is post laparoscopic cholecystectomy with intraoperative cholangiogram. With the drain output still being bloody would hold off anticoagulation. When the output is clear, we will plan to DC the drain and start her on prophylactic heparin or Lovenox. Would not fully anticoagulate patient however for another week.
--- NOTE | 2018-10-25 08:36 | RADIOLOGY REPORT (SQ) ---
EXAM DESCRIPTION: NO CHG FLUORO COMPLETED DATE/TIME: 10/24/2018 8:38 pm REASON FOR STUDY: CHOLANGIOGRAM IN OR COMPARISON: None. FLUOROSCOPY TIME: Less than one hour. 0.8 minutes 88 images saved to PACS LIMITATIONS: None. PROCEDURE: Fluoroscopy was provided for intraprocedural guidance. 0.8 minutes fluoroscopy time. IMPRESSION: Intraprocedural fluoroscopy was provided. 0.8 minutes fluoroscopy time. Please Correlate with the procedure report. COMMENT: Quality ID [id number]: Final reports for procedures using fluoroscopy that document radiation exp osure indices, or exposure time and number of fluorographic images (if radiation exposure indices are not available) TECHNICAL DOCUMENTATION: JOB ID: [id number] [employer]- All Rights Reserved Reading location - IP/workstation name: [email or web address]
[2018-10-25] MEDS: CIPROFLOXACIN HCL 500 MG TABLET PO SCH ×2 (10:06→21:21)
[2018-10-25] MEDS: HYDROMORPHONE HCL INJ/PF 2 MG/ML AMPULE IV PRN ×4 (10:06→21:20)
[2018-10-25] MEDS: THIAMINE HCL 100 MG TABLET PO SCH (10:06)
[2018-10-25] MEDS: DOCUSATE SODIUM 100 MG CAPSULE PO SCH ×2 (10:06→17:55)
[2018-10-25] MEDS: FOLIC ACID 1 MG TABLET PO SCH (10:06)
[2018-10-25] MEDS: ACETAMINOPHEN 325 MG TABLET PO PRN ×2 (10:06→23:38)
[2018-10-25] MEDS ORDERED: GUAIFENESIN SYRP 200 MG/10 ML UDC PO PRN (20:19)
[2018-10-25] MEDS ORDERED: PHENOL/SODIUM PHENOLATE 100 SPRAY/177 ML BOTTLE PO PRN (20:20)
[2018-10-26] MEDS: PANTOPRAZOLE SODIUM 40 MG TABLET.DR PO SCH ×2 (05:29→17:25)
[2018-10-26] MEDS: GABAPENTIN 300 MG CAPSULE PO SCH ×2 (05:29→13:15)
[2018-10-26] MEDS: HYDROMORPHONE HCL INJ/PF 2 MG/ML AMPULE IV PRN ×3 (06:16→16:26)
[2018-10-26 07:10] LABS: HEMATOCRIT 37.2 % (36.0-47.0); HEMOGLOBIN 12.3 g/dL (12.0-15.5); MEAN CORPUSCULAR HEMOGLOBIN 33.4 pg (27.0-33.4); MEAN CORPUSCULAR VOLUME 101 fl (80-97); PLATELET COUNT 169 10^3/uL (150-450); RED BLOOD COUNT 3.68 10^6/uL (3.72-5.28); RED CELL DISTRIBUTION WIDTH 14.4 % (11.5-14.0); WHITE BLOOD COUNT 10.2 10^3/uL (4.0-10.5)
[2018-10-26 08:12] LABS: ANION GAP 5 (5-19); BLOOD UREA NITROGEN 9 mg/dL (7-20); CALCIUM 8.9 mg/dL (8.4-10.2); CARBON DIOXIDE 28 mmol/L (22-30); CHLORIDE 102 mmol/L (98-107); POTASSIUM 4.1 mmol/L (3.6-5.0)
[2018-10-26 08:29] LABS: GLUCOSE 63 mg/dL (75-110)
--- NOTE | 2018-10-26 08:36 | PDOC DISCHARGE SUMMARY ---
General - Admit/Disc Date/PCP Admission Date/Primary Care Provider: 10/20/18 17:02 Discharge Date: 10/26/18 - Discharge Diagnosis (1) Supratherapeutic INR Is this a current diagnosis for this admission?: Yes (2) Acute cholecystitis Is this a current diagnosis for this admission?: Yes (3) Chronic bilateral deep venous thrombosis (DVT) of extremities Is this a current diagnosis for this admission?: Yes (4) Opioid dependence with current use Is this a current diagnosis for this admission?: Yes (5) Chronic acquired lymphedema Is this a current diagnosis for this admission?: Yes (6) Bleeding nose Is this a current diagnosis for this admission?: Yes (7) GERD with esophagitis Is this a current diagnosis for this admission?: Yes (8) Hypokalemia Is this a current diagnosis for this admission?: Yes - Additional Information Resuscitation Status: Full Code Discharge Diet: As Tolerated Discharge Activity: Activity As Tolerated Prescriptions: Ciprofloxacin HCl [Cipro 500 mg Tablet] 500 mg PO Q12 #14 tablet Home Medications: Gabapentin [Neurontin 300 mg Capsule] 300 mg PO DAILY 09/30/18 Gabapentin [Neurontin 300 mg Capsule] 900 mg PO QHS 09/30/18 Hydrocodone/Acetaminophen [[place] 7.5-325 mg Tablet] 1 tab PO Q8HP PRN 09/30/18 Tizanidine HCl 8 mg PO QHS 09/30/18 Pantoprazole Sodium [Protonix] 40 mg PO ACBRKFST #30 tablet. 10/03/18 Acetaminophen/Diphenhydramine [Tylenol Pm Ex-Strength Caplet] 2 each PO QHS 10/20/18 Cetirizine HCl [Zyrtec 10 mg Tablet] 10 mg PO QHS 10/20/18 Diphenhydramine HCl [Benadryl Allergy] 25 mg PO QHS 10/20/18 Ciprofloxacin HCl [Cipro 500 mg Tablet] 500 mg PO Q12 #14 tablet 10/26/18 History of Present Illness Patient complains of: Abdominal pain status post CORINNE removal History of Present Illness: BENNY LLANES is a 53 year old female who presented to the ER with sharp right upper quadrant abdominal pain and had acute cholecystitis as well as a supratherapeutic INR. Hospital Course Hospital Course: Patient was seen in the ER with past medical history of bilateral lower extremity DVTs x6 years ago with IVC placed 5 years ago. Patient has been on and off Coumadin for financial reasons but was found to have an INR of 10. Patient also was found to have acute cholecystitis requiring cholecystectomy. Patient was given vitamin K as well as FFP in order to reduce her INR to level appropriate for surgery. Patient underwent surgery and had a CORINNE drain for approximately 2 days. At this time the CORINNE was removed and surgery has cleared patient for discharge home. Patient be discharged home at this time she will continue home medications including [place] for pain. We have decided to discontinue Coumadin at this time as patient does have his IVC filter. Patient will follow-up with her primary care practitioner within 1 week and will leave to their expertise as to whether or not to place patient back on Coumadin at that time. Patient also has a UTI for which I sent in a prescription of Cipro 500 mg p.o. twice daily x7 days. Patient agrees and is understanding his plan of care. Physical Exam Vital Signs: Temp Pulse Resp BP Pulse Ox 98.9 F 97 18 107/70 95 10/26/18 08:03 10/26/18 08:03 10/26/18 08:03 10/26/18 08:03 10/26/18 08:03 Intake & Output 10/25/18 10/26/18 10/27/18 06:59 06:59 06:59 Intake Total 3878 1220 Output Total 4095 975 Balance -217 245 Weight 113 kg 115.6 kg General appearance: PRESENT: no acute distress, well-developed, well-nourished Head exam: PRESENT: atraumatic, normocephalic Eye exam: PRESENT: conjunctiva pink, EOMI, PERRLA. ABSENT: scleral icterus Ear exam: PRESENT: normal external ear exam Mouth exam: PRESENT: moist, tongue midline Neck exam: ABSENT: carotid bruit, JVD, lymphadenopathy, thyromegaly Respiratory exam: PRESENT: clear to auscultation ubaldo. ABSENT: rales, rhonchi, wheezes Cardiovascular exam: PRESENT: RRR. ABSENT: diastolic murmur, rubs, systolic murmur Pulses: PRESENT: normal dorsalis pedis pul Vascular exam: PRESENT: normal capillary refill GI/Abdominal exam: PRESENT: normal bowel sounds, soft, other - Soft tender around area of CORINNE removal. ABSENT: distended, guarding, mass, organolmegaly, rebound, tenderness Rectal exam: PRESENT: deferred Extremities exam: PRESENT: full ROM. ABSENT: calf tenderness, clubbing, pedal edema Neurological exam: PRESENT: alert, awake, oriented to person, oriented to place, oriented to time, oriented to situation, CN II-XII grossly intact. ABSENT: motor sensory deficit Psychiatric exam: PRESENT: appropriate affect, normal mood. ABSENT: homicidal ideation, suicidal ideation Skin exam: PRESENT: dry, intact, warm. ABSENT: cyanosis, rash Adult Front & Back Image: 1 - CORINNE site 2 - Puncture site from lap scopic cholecystectomy 3 - Puncture site from laparoscopic cholecystectomy Results Laboratory Results: 10/26/18 06:44 10/26/18 06:44 10/26/18 10/26/18 06:44 06:44 WBC 10.2 RBC 3.68 L Hgb 12.3 Hct 37.2 MCV 101 H MCH 33.4 MCHC 33.0 RDW 14.4 H Plt Count 169 Sodium 134.5 L Potassium 4.1 Chloride 102 Carbon Dioxide 28 Anion Gap 5 BUN 9 Creatinine 1.06 Est GFR ( Amer) > 60 Glucose 63 L Calcium 8.9 10/20/18 18:30 Blood Blood Culture - Final NO GROWTH IN 5 DAYS 10/20/18 18:05 Blood Blood Culture - Final NO GROWTH IN 5 DAYS Impressions: Abdomen Ultrasound 10/20/18 11:42 IMPRESSION: 1. Cholelithiasis, sludge, gallbladder wall thickening and a positive Garcia's signs. These findings are suggestive of an acute cholecystitis. 2. Hepatic steatosis. Cholangiogram 10/24/18 00:00 IMPRESSION: Total of 88 fluoroscopic images following injection of the cystic duct. Total fluoroscopic time 0.8 minutes. Fluoroscopy 10/24/18 00:00 IMPRESSION: Intraprocedural fluoroscopy was provided. 0.8 minutes fluoroscopy time. Please Correlate with the procedure report. Qualifiers - * PATIENT BEING DISCHARGED WITH ANY OF THE FOLLOWING DIAGNOSIS: No Acute Heart Failure - Is this a Heart Failure Patient?: No Plan Time Spent: Greater than 30 Minutes
--- NOTE | 2018-10-26 09:19 | PDOC PROGRESS REPORT ---
Subjective Progress Note for:: 10/26/18 Subjective:: mild pains around drain site Reason For Visit: HEMATEMESIS,SUPRATHERAPEUTIC INR,ACUTE CHOLECYSTIT Physical Exam Vital Signs: Temp Pulse Resp BP Pulse Ox 98.9 F 97 18 107/70 95 10/26/18 08:03 10/26/18 08:03 10/26/18 08:03 10/26/18 08:03 10/26/18 08:03 Intake & Output 10/25/18 10/26/18 10/27/18 06:59 06:59 06:59 Intake Total 3878 1220 Output Total 4095 975 Balance -217 245 Weight 113 kg 115.6 kg Exam: abdomen is soft and non tender CORINNE drain light bilious/bloody small amounts Results Laboratory Results: 10/26/18 06:44 10/26/18 06:44 10/26/18 10/26/18 06:44 06:44 WBC 10.2 RBC 3.68 L Hgb 12.3 Hct 37.2 MCV 101 H MCH 33.4 MCHC 33.0 RDW 14.4 H Plt Count 169 Sodium 134.5 L Potassium 4.1 Chloride 102 Carbon Dioxide 28 Anion Gap 5 BUN 9 Creatinine 1.06 Est GFR ( Amer) > 60 Glucose 63 L Calcium 8.9 10/20/18 18:30 Blood Blood Culture - Final NO GROWTH IN 5 DAYS 10/20/18 18:05 Blood Blood Culture - Final NO GROWTH IN 5 DAYS Impressions: Abdomen Ultrasound 10/20/18 11:42 IMPRESSION: 1. Cholelithiasis, sludge, gallbladder wall thickening and a posi tive Garcia's signs. These findings are suggestive of an acute cholecystitis. 2. Hepatic steatosis. Cholangiogram 10/24/18 00:00 IMPRESSION: Total of 88 fluoroscopic images following injection of the cystic duct. Total fluoroscopic time 0.8 minutes. Fluoroscopy 10/24/18 00:00 IMPRESSION: Intraprocedural fluoroscopy was provided. 0.8 minutes fluoroscopy time. Please Correlate with the procedure report. Assessment & Plan - Diagnosis (1) Bleeding nose Is this a current diagnosis for this admission?: Yes (2) RUQ pain Is this a current diagnosis for this admission?: Yes (3) Anastomotic ulcer S/P gastric bypass Is this a current diagnosis for this admission?: Yes (4) DVT (deep venous thrombosis) Is this a current diagnosis for this admission?: Yes (5) History of gastric bypass Is this a current diagnosis for this admission?: Yes (6) Intractable nausea and vomiting Is this a current diagnosis for this admission?: Yes (7) Obesity (BMI 35.0-39.9 without comorbidity) Is this a current diagnosis for this admission?: Yes (8) S/P IVC filter Is this a current diagnosis for this admission?: Yes (9) left upper quadrant abdominal pain Is this a current diagnosis for this admission?: Yes - Time Time Spent with patient: 15-24 minutes - Plan Summary Plan Summary: Drain removed. OK to go home anytime from surgical viewpoint. Has an IVC filter. Not absolutely necassary to anticoagulate for DVT of femoral veins but will leave it up to medicine.
[2018-10-26] MEDS: TIZANIDINE HCL 4 MG TABLET PO SCH (09:36)
[2018-10-26] MEDS: FOLIC ACID 1 MG TABLET PO SCH (09:36)
[2018-10-26] MEDS: THIAMINE HCL 100 MG TABLET PO SCH (09:36)
[2018-10-26] MEDS: DOCUSATE SODIUM 100 MG CAPSULE PO SCH ×2 (09:36→17:25)
[2018-10-26] MEDS: CIPROFLOXACIN HCL 500 MG TABLET PO SCH (09:37)
[2018-10-26] MEDS ORDERED: NORMAL SALINE 500 ML IV ONE (12:00)
[2018-10-26] MEDS ORDERED: NORMAL SALINE 1000 ML 1,000 ML IV ONE (15:00)
[2018-10-26 17:14] VITALS: BP 115/75
[2018-10-26] MEDS ORDERED: DIPHENHYDRAMINE HCL 25 MG CAPSULE PO ONE (18:30)
[2018-10-26] MEDS: OXYCODONE-ACETAMINOPHEN 5-325 MG TABLET PO PRN (18:58)
== END 2018-10-26 19:51 | disposition home or self-care (01) | DRG 418 ==
LOC: ER 10:18 → EH 15:57 → OBSVTOIN 17:02 → 3N 23:38
PROVIDERS: ADMIT Internal Medicine; ATTEND Internal Medicine
PROC: 30233K1 Transfusion of Nonautologous Frozen Plasma into Peripheral Vein, Percutaneous Approach (ICD-10-PCS; 2018-10-20)
PROC: BF101ZZ Fluoroscopy of Bile Ducts using Low Osmolar Contrast (ICD-10-PCS; 2018-10-24)
PROC: 0FT44ZZ Resection of Gallbladder, Percutaneous Endoscopic Approach (ICD-10-PCS; principal; 2018-10-24 16:30)
DX: K81.0 Acute cholecystitis (principal); D68.32 Hemorrhagic disorder due to extrinsic circulating anticoagulants; I82.503 Chronic embolism and thrombosis of unspecified deep veins of lower extremity, bilateral; N39.0 Urinary tract infection, site not specified; F11.20 Opioid dependence, uncomplicated; Z68.41 Body mass index [BMI] 40.0-44.9, adult; R04.0 Epistaxis; K28.7 Chronic gastrojejunal ulcer without hemorrhage or perforation; T45.515A Adverse effect of anticoagulants, initial encounter; K21.0 Gastro-esophageal reflux disease with esophagitis; M19.90 Unspecified osteoarthritis, unspecified site; M54.9 Dorsalgia, unspecified; E66.9 Obesity, unspecified; Z95.828 Presence of other vascular implants and grafts; I89.0 Lymphedema, not elsewhere classified; Z87.891 Personal history of nicotine dependence; Z82.49 Family history of ischemic heart disease and other diseases of the circulatory system; Z83.3 Family history of diabetes mellitus
CPT/HCPCS: 00790; 36415; 36430; 74300; 76705; 80048; 80053; 80307; 81001; 82962; 83690; 83735; 85025; 85027; 85610; 85730; 86850; 86900; 86901; 87040; 87086; 87088; 87186; 88304; 96365; 96367; 99285; J0330; J0360; J0696; J1100; J1170; J1200; J2060; J2250; J2270; J2405; J2543; J2704; J2710; J3010; J3360; J3430; J3490; J7030; J7040; J7060; P9017

== ENCOUNTER 2018-12-05 21:04 | Inpatient (IN) | payer SELFPAY ==
[2018-12-05] MEDS ORDERED: ONDANSETRON HCL INJ/PF 4 MG/2 ML SDV IV ONE (21:20)
--- NOTE | 2018-12-05 21:20 | ER Document Report ---
ED Substance Abuse / Acc. OD - General Stated Complaint: ETOH Time Seen by Provider: 12/05/18 21:15 Mode of Arrival: Ambulatory Information source: Patient Notes: HISTORY OF PRESENT ILLNESS: Patient is a 19-year-old female with a past medical history of chronic alcohol abuse and recent laparoscopic cholecystectomy 6 weeks ago who presents with weakness, abdominal pain, and nausea. Patient reports drinking 1-1/2 bottles of wine daily for the past 10 years, her last drink was approximately 5 days ago because she is "trying to stop drinking." She reports the pain is in the right upper quadrant and is similar but not as worse as her pain prior to her cholecystectomy. She reports she may have had a fever but is unsure, does report chills. She denies shortness of breath or chest pain. Location: Right upper quadrant Onset: Prior to arrival Provocation: Alcohol intake Quality: Aching, sharp Radiation: None Severity: Mild to moderate Timing: Constant Associated symptoms: Denies chest pain or shortness of breath, reports chills but no known fever, no known sick contacts, no diarrhea or nausea REVIEW OF SYSTEMS: CONSTITUTIONAL : Denies fever or chills, no sweats. Denies recent illness. EENT: Denies eye, ear, throat, or mouth pain or symptoms. Denies nasal or sinus congestion. CARDIOVASCULAR: Denies chest pain. RESPIRATORY: Denies cough, cold, or chest congestion. Denies shortness of breath, difficulty breathing, or wheezing. GASTROINTESTINAL: Positive for abdominal pain. Positive for nausea but no vomiting or diarrhea. Denies constipation. GENITOURINARY: Denies difficulty urinating, painful urination, burning, frequency, or blood in urine. Denies vaginal bleeding, abnormal or irregular periods. MUSCULOSKELETAL: Denies neck or back pain or joint pain or swelling. SKIN: Denies rash or skin lesions. HEMATOLOGIC : Denies easy bruising or bleeding. LYMPHATIC: Denies swollen, enlarged glands. NEUROLOGICAL: Denies altered mental status or loss of consciousness. Denies headache. Denies weakness or paralysis or loss of use of either side. Denies problems with gait or speech. Denies sensory or motor loss. PSYCHIATRIC: Positive for chronic alcohol abuse. Denies anxiety or stress or depression. All other systems reviewed and negative. PHYSICAL EXAMINATION: GENERAL: Sick-appearing, well-nourished and in mild acute distress. HEAD: Atraumatic, normocephalic. No scalp deformity, depression, or crepitance. EYES: Slight scleral icterus. Pupils are 3 mm and equal/round/reactive to light, extraocular movements intact, conjunctiva are normal. ENT: Nares patent bilaterally, oropharynx clear without exudates or palatal petechia. Moist mucous membranes. No tonsil hypertrophy. NECK: Normal range of motion, supple without lymphadenopathy. LUNGS: Breath sounds present, equal, and clear to auscultation bilaterally. No wheezes, rales, or rhonchi. HEART: Tachycardia, no rubs or gallops. 2+ peripheral pulses. Normal capillary refill. ABDOMEN: Soft, mild tenderness in the right upper quadrant, nondistended. Normoactive bowel sounds. No guarding, no rebound. No masses appreciated. BACK: Normal contour, no midline tenderness. Rectal exam deferred. PELVC: Deferred. EXTREMITIES: Normal range of motion, no pitting or edema. No cyanosis. NEUROLOGICAL: No focal neurological deficits. Moves all extremities spontaneously and on command. PSYCH: Normal mood, normal affect. No suicidal thoughts/ideations. No homicidal thoughts/ideations. No hallucinations. SKIN: Mild jaundice. Warm, dry, normal turgor, no rashes or lesions noted. ASSESSMENT AND PLAN: This patient is a 53-year-old female who presents with abdominal pain with vomiting and weakness. Concern for intra-abdominal pathology given her recent cholecystectomy, also could be gastritis from alcohol intoxication or symptoms related to alcohol withdrawal. 1. Will obtain labs, urine, lactic acid, blood cultures, ethanol panel, urine with urine drug screen. 2. Will give IV fluids with empiric antibiotics including IV vancomycin with Zosyn, and admit to the hospital. TRAVEL OUTSIDE OF THE [place] IN LAST 30 DAYS: No - HPI Patient complains to provider of: Alcohol abuse Onset: Other - "Been drinking about a bottle and a half of wine for the past 10 years" Onset/Duration: Persistent Quality of pain: Achy Severity: Mild Pain Level: 1 Similar symptoms previously: No Recently seen / treated by doctor: No - Related Data Allergies/Adverse Reactions: No Known Allergies Allergy (Verified 10/20/18 10:20) Past Medical History - General Information source: Patient - Social History Smoking Status: Never Smoker Chew tobacco use (# tins/day): No Frequency of alcohol use: Heavy Drug Abuse: None Lives with: Alone Family History: CAD, DM, Hypertension, Malignancy - Oral cancer - Past Medical History Cardiac Medical History: Reports: Hx DVT - Left lower leg, right groin (required thrombectomy) Denies: Hx Coronary Artery Disease, Hx Heart Attack, Hx Hypertension, Hx Peripheral Vascular Disease, Hx Pulmonary Embolism Pulmonary Medical History: Reports: None Denies: Hx Asthma, Hx Bronchitis, Hx COPD, Hx Pneumonia, Hx Tuberculosis EENT Medical History: Reports: None Neurological Medical History: Reports: None. Denies: Hx Cerebrovascular Accident, Hx Seizures Endocrine Medical History: Reports: None. Denies: Hx Diabetes Mellitus Type 1, Hx Diabetes Mellitus Type 2, Hx Hyperthyroidism, Hx Hypothyroidism Renal/ Medical History: Reports: Hx Ovarian Cysts - Currently Occuring. Denies: Hx Peritoneal Dialysis Malignancy Medical History: Reports: None GI Medical History: Reports: Hx Gastritis, Hx Gastroesophageal Reflux Disease - ulcer. Denies: Hx Cirrhosis, Hx Crohn's Disease, Hx Diverticulitis, Hx Hepatitis, Hx Hiatal Hernia, Hx Ulcerative Colitis Musculoskeletal Medical History: Reports Hx Arthritis, Denies Hx Fibromyalgia, Denies Hx Gout Skin Medical History: Reports None, Denies Hx Eczema, Denies Hx Psoriasis Psychiatric Medical History: Reports: None Traumatic Medical History: Reports: None Infectious Medical History: Reports: None. Denies: Hx Hepatitis Past Surgical History: Reports: Hx Bowel Surgery - gastric bypass, Hx Section - x2, Hx Gastric Bypass Surgery, Hx Gynecologic Surgery - DNC, Hx Herniorrhaphy, Hx Tonsillectomy, Hx Vascular Surgery - Thrombectomy of right groin, Other - Vena cava filter, EGD. Denies: Hx Hysterectomy, Hx Pacemaker - Immunizations Hx Diphtheria, Pertussis, Tetanus Vaccination: No Review of Systems - Review of Systems Constitutional: No symptoms reported EENT: No symptoms reported Cardiovascular: No symptoms reported Respiratory: No symptoms reported Gastrointestinal: See HPI, Abdominal pain Genitourinary: No symptoms reported Female Genitourinary: No symptoms reported Musculoskeletal: No symptoms reported Skin: No symptoms reported Hematologic/Lymphatic: No symptoms reported Neurological/Psychological: See HPI, Anxiety, Other - Alcohol abuse -: Yes All other systems reviewed and negative Physical Exam - Vital signs Vitals: Resp 14 12/05/18 21:18 Interpretation: Normal Course - Re-evaluation Re-evalutation: 12/06/18 01:41 Labs show borderline leukopenia with total bilirubin of 8.5 with an elevated direct bilirubin as well, LFTs are otherwise grossly unremarkable with mildly el evated alkaline phosphatase. Lipase is also normal. CT scan reveals no acute intra-abdominal pathology. Given new onset jaundice with concern of biliary stasis versus postoperative complication, will obtain follow-up right upper quadrant ultrasound and reassess the patient. 12/06/18 03:53 CT scan shows no acute intra-abdominal pathology. Follow-up ultrasound also reveals no evidence of biliary stasis or ductal dilatation. Surgery recommends GI/hospitalist consult given he does not believe this is a surgical issue. GI believes patient needs an MRCP in the morning. Patient will be admitted to the hospitalist. - Vital Signs Vital signs: Temp Pulse Resp BP Pulse Ox 100.3 F 23 H 99/61 L 95 12/06/18 03:49 12/06/18 05:21 12/06/18 05:21 12/06/18 05:21 - Laboratory Result Diagrams: 12/05/18 22:16 12/05/18 21:55 Laboratory results interpreted by me: 12/05/18 12/05/18 12/05/18 21:55 21:55 21:55 WBC RBC MCV MCH RDW VBG pH 7.45 H VBG pCO2 32.4 L Sodium 132.6 L Chloride 97 L Carbon Dioxide 21 L Est GFR ( Amer) 58 L Est GFR (MDRD) Non-Af 48 L Glucose 165 H POC Glucose Lactic Acid Calcium 8.1 L Total Bilirubin 8.5 H Direct Bilirubin 7.3 H AST 116 H Alkaline Phosphatase 294 H Total Protein 6.1 L Albumin 2.4 L Free T4 Urine Ketones Urine Bilirubin Urine Urobilinogen Acetaminophen < 10 L 12/05/18 12/05/18 12/05/18 21:55 22:01 22:16 WBC 3.1 L RBC 3.62 L MCV 112 H MCH 36.8 H RDW 17.3 H VBG pH VBG pCO2 Sodium Chloride Carbon Dioxide Est GFR ( Amer) Est GFR (MDRD) Non-Af Glucose POC Glucose 137 H Lactic Acid Calcium Total Bilirubin Direct Bilirubin AST Alkaline Phosphatase Total Protein Albumin Free T4 2.27 H Urine Ketones Urine Bilirubin Urine Urobilinogen Acetaminophen 12/06/18 12/06/18 12/06/18 00:25 02:25 03:05 WBC RBC MCV MCH RDW VBG pH VBG pCO2 Sodium Chloride Carbon Dioxide Est GFR ( Amer) Est GFR (MDRD) Non-Af Glucose POC Glucose 62 L Lactic Acid 3.4 H Calcium Total Bilirubin Direct Bilirubin AST Alkaline Phosphatase Total Protein Albumin Free T4 Urine Ketones TRACE H Urine Bilirubin MODERATE H Urine Urobilinogen 4.0 H Acetaminophen 12/06/18 03:55 WBC RBC MCV MCH RDW VBG pH VBG pCO2 Sodium Chloride Carbon Dioxide Est GFR ( Amer) Est GFR (MDRD) Non-Af Glucose POC Glucose 61 L Lactic Acid Calcium Total Bilirubin Direct Bilirubin AST Alkaline Phosphatase Total Protein Albumin Free T4 Urine Ketones Urine Bilirubin Urine Urobilinogen Acetaminophen - Diagnostic Test Radiology reviewed: Image reviewed, Reports reviewed - EKG Interpretation by Me EKG shows normal: Sinus rhythm Rate: Normal Rhythm: NSR [place]/QRS: No: Right axis deviation, Left axis deviation, RBBB, LBBB, IVCD, LAHB/LAFB, LPHB/LPFB, Bifasicular block Voltage: No: Increased voltage, Consistant with LVH, Decreased voltage, Throughout, Limb leads P Waves: No: DANIELLE, LAE, Absent, AV Dissociation, Other Heart block present: No: 1st Degree, Mobitz 1, Mobitz 2, CHB (3rd degree block) When compared to previous EKG there are: No significant change - Consults Dr. Fine Time consulted: 03:20 - recommends GI and hospitalist consult Consulted provider: will see as inpatient Dr. Otto Time consulted: 03:31 - MRCP in the morning Consulted provider: will see as inpatient Dr. Ansari Time consulted: 03:53 - admission Consulted provider: will come to ER Discharge - Discharge Clinical Impression: Hyperbilirubinemia, Chronic alcohol abuse Abdominal pain Qualifiers: Abdominal location: right upper quadrant Qualified Code(s): R10.11 - Right upper quadrant pain Condition: Stable Disposition: ADMITTED INPATIENT Admitting Provider: Coty (Hospitalist) Unit Admitted: [facility]
[2018-12-05] MEDS ORDERED: DEXTROSE 50%-WATER 25 GM/50 ML DISP.SYRIN IV ONE ×2 (21:26→21:27)
--- NOTE | 2018-12-05 21:28 | ER Document Report ---
ED Medical Screen (RME) - General Stated Complaint: ETOH Time Seen by Provider: 12/05/18 21:15 Mode of Arrival: Medic Information source: Patient Notes: Patient presents emergency department with nausea vomiting and history of EtOH abuse and lymphedema. Reports lymphedema for years. Has not been treated by primary care provider in over 3 years. Reports she does receive treatment for her back pain from pain management. Reports last bowel line was . I have greeted and performed a rapid initial assessment of this patient. A comprehensive ED assessment and evaluation of the patient, analysis of test r esults and completion of the medical decision making process will be conducted by additional ED providers. Dictation of this chart was performed using voice recognition software; therefore, there may be some unintended grammatical errors. TRAVEL OUTSIDE OF THE [place] IN LAST 30 DAYS: No - Related Data Allergies/Adverse Reactions: No Known Allergies Allergy (Verified 10/20/18 10:20) Past Medical History - Past Medical History Cardiac Medical History: Reports: Hx DVT - Left lower leg, right groin (required thrombectomy) Denies: Hx Coronary Artery Disease, Hx Heart Attack, Hx Hypertension, Hx Peripheral Vascular Disease, Hx Pulmonary Embolism Pulmonary Medical History: Denies: Hx Asthma, Hx Bronchitis, Hx COPD, Hx Pneumonia, Hx Tuberculosis Neurological Medical History: Denies: Hx Cerebrovascular Accident, Hx Seizures Endocrine Medical History: Denies: Hx Diabetes Mellitus Type 1, Hx Diabetes Mellitus Type 2, Hx Hyperthyroidism, Hx Hypothyroidism Renal/ Medical History: Reports: Hx Ovarian Cysts - Currently Occuring. Denies: Hx Peritoneal Dialysis GI Medical History: Reports: Hx Gastritis, Hx Gastroesophageal Reflux Disease - ulcer. Denies: Hx Cirrhosis, Hx Crohn's Disease, Hx Diverticulitis, Hx Hepatitis, Hx Hiatal Hernia, Hx Ulcerative Colitis Musculoskeltal Medical History: Reports Hx Arthritis, Denies Hx Fibromyalgia, Denies Hx Gout Skin Medical History: Denies Hx Eczema, Denies Hx Psoriasis Infectious Medical History: Denies: Hx Hepatitis Past Surgical History: Reports: Hx Bowel Surgery - gastric bypass, Hx Section - x2, Hx Gastric Bypass Surgery, Hx Gynecologic Surgery - DNC, Hx Herniorrhaphy, Hx Tonsillectomy, Hx Vascular Surgery - Thrombectomy of right groin, Other - Vena cava filter, EGD. Denies: Hx Hysterectomy, Hx Pacemaker - Immunizations Hx Diphtheria, Pertussis, Tetanus Vaccination: No
[2018-12-05 22:13] LABS: HEMATOCRIT 40.7 % (36.0-47.0); HEMOGLOBIN 13.4 g/dL (12.0-15.5); MEAN CORPUSCULAR HEMOGLOBIN 36.8 pg (27.0-33.4); MEAN CORPUSCULAR HGB CONC 32.8 g/dL (32.0-36.0); PLATELET COUNT 229 10^3/uL (150-450); RED BLOOD COUNT 3.62 10^6/uL (3.72-5.28); RED CELL DISTRIBUTION WIDTH 17.3 % (11.5-14.0); WHITE BLOOD COUNT 3.1 10^3/uL (4.0-10.5)
[2018-12-05] MEDS ORDERED: THIAMINE HCL 100 MG, FOLIC ACID 1 MG in NORMAL SALINE 250 ML IV ONE (22:13)
[2018-12-05] MEDS ORDERED: THIAMINE HCL INJ 200 MG/2 ML VIAL ONE (22:20)
[2018-12-05] MEDS ORDERED: FOLIC ACID INJ 5 MG/1 ML 10 ML VIAL ONE (22:21)
[2018-12-05 22:34] LABS: ABSOLUTE MONOCYTES # (MANUAL) 0.2 10^3/uL (0.1-1.4); ANISOCYTOSIS 1+; BAND NEUTROPHILS % (MANUAL) 4 % (3-5); BASOPHILS % (MANUAL) 0 % (0-2); EOSINOPHILS % (MANUAL) 0 % (0-6); LYMPHOCYTES % (MANUAL) 33 % (13-45); MONOCYTES % (MANUAL) 6 % (3-13); PLATELET COMMENT ADEQUATE; SEGMENTED NEUTROPHILS % (MAN) 57 % (42-78); TOTAL CELLS COUNTED 100
[2018-12-05 22:36] LABS: MEAN CORPUSCULAR VOLUME 112 fl (80-97)
[2018-12-05 23:03] LABS: VENOUS BLOOD HCO3 21.9 mmol/L (20-32); VENOUS BLOOD PCO2 32.4 mmHg (35-63); VENOUS BLOOD PH 7.45 (7.30-7.42)
[2018-12-05 23:04] LABS: VENOUS BLOOD BASE EXCESS -1.3 mmol/L
[2018-12-05 23:05] LABS: ALBUMIN 2.4 g/dL (3.5-5.0); ALKALINE PHOSPHATASE 294 U/L (38-126); ANION GAP 15 (5-19); ASPARTATE AMINO TRANSFERASE 116 U/L (14-36); BILIRUBIN,DIRECT 7.3 mg/dL (0.0-0.4); BILIRUBIN,TOTAL 8.5 mg/dL (0.2-1.3); BLOOD UREA NITROGEN 9 mg/dL (7-20); CALCIUM 8.1 mg/dL (8.4-10.2); CARBON DIOXIDE 21 mmol/L (22-30); CHLORIDE 97 mmol/L (98-107); GLUCOSE 165 mg/dL (75-110); POTASSIUM 4.2 mmol/L (3.6-5.0); TOTAL PROTEIN 6.1 g/dL (6.3-8.2)
[2018-12-05 23:07] LABS: ALCOHOL < 10 mg/dL (NONE DETECTED)
--- NOTE | 2018-12-06 00:21 | RADIOLOGY REPORT (SQ) ---
EXAM DESCRIPTION: CT ABDOMEN PELVIS WITH IV CONTRAST COMPLETED DATE/TME: 12/05/2018 23:16 CLINICAL HISTORY: 53 years, Female, Abdominal pain. CREAT 1.18 COMPARISON: 02/15/2012 CT TECHNIQUE: 618 Images stored on PACS. All CT scanners at this facility use dose modulation, iterative reconstruction, and/or weight based dosing when appropriate to reduce radiation dose to as low as reasonably achievable (ALARA). [facility]: Dose Right [facility]: CareDose [facility]: Dose Right [facility]: Teradose 4D [facility]: [employer] LIMITATIONS: None. FINDINGS: Limited evaluation of the lung bases shows a tiny left pleural effusion. Minor bibasilar pleural thickening. Osseous structures are grossly intact. Postsurgical changes in the upper abdomen. Fatty infiltrative change to the liver. The spleen, adrenal glands, pancreas, kidneys are unremarkable. Inferior vena cava filter noted. Status post cholecystectomy. Bilateral hip prostheses with associated streak artifact. Haziness of the subcutaneous fat could reflect developing anasarca. A few mildly prominent loops of proximal small bowel in the left mid abdomen measuring up to 4 cm in diameter. No discrete transition point. Findings favor ileus, however recommend follow-up. The appendix is not well seen. No pericecal inflammation. Endovascular stent graft associated with the left iliac vein. IMPRESSION: Findings suggestive of focal ileus involving the proximal loops of small bowel. Follow-up is recommended. Fatty infiltrative change to the liver. Tiny left pleural effusion. TECHNICAL DOCUMENTATION: Quality ID # [id number]: Final reports with documentation of one or more dose reduction techniques (e.g., Automated exposure control, adjustment of the mA and/or kV according to patient size, use of iterative reconstruction technique) copyright 2011 [employer]- All Rights Reserved
[2018-12-06 00:48] LABS: APPEARANCE,URINE CLEAR; BILIRUBIN,URINE MODERATE (NEGATIVE); COLOR,URINE AMBER; GLUCOSE, URINE NEGATIVE (NEGATIVE); KETONES,URINE TRACE mg/dL (NEGATIVE); LEUKOCYTE ESTERASE,URINE NEGATIVE (NEGATIVE); NITRITE,URINE NEGATIVE (NEGATIVE); PROTEIN,URINE NEGATIVE (NEGATIVE); URINE SPECIFIC GRAVITY 1.048
[2018-12-06 01:27] LABS: URINE AMPHETAMINES SCREEN NEGATIVE; URINE BARBITURATES SCREEN NEGATIVE; URINE BENZODIAZEPINES SCREEN NEGATIVE; URINE COCAINE SCREEN NEGATIVE; URINE MARIJUANA (THC) SCREEN NEGATIVE; URINE METHADONE SCREEN NEGATIVE; URINE PHENCYCLIDINE SCREEN NEGATIVE
[2018-12-06] MEDS ORDERED: NORMAL SALINE 1000 ML 1,000 ML IV ONE ×3 (01:39→07:00)
[2018-12-06] MEDS ORDERED: VANCOMYCIN HCL INJ 1000 MG VIAL IV ONE (02:34)
[2018-12-06] MEDS ORDERED: PIPERACILLIN/TAZOBACTAM 4.5 GM VIAL IV ONE (02:34)
[2018-12-06] MEDS ORDERED: GLUCAGON,HUMAN RECOMB 1 MG INJ IV ONE (02:34)
--- NOTE | 2018-12-06 02:49 | RADIOLOGY REPORT (SQ) ---
EXAM: Ultrasound abdomen limited CLINICAL DATA: 53-year-old female with abdominal pain. TECHNICAL DATA: Limited sonographic imaging of the right upper quadrant was performed on 12/06/2018 at 2:15 AM. Comparison: CT abdomen and pelvis performed on 12/05/2018 at 11:35 PM. FINDINGS: The liver measurement appears to be under estimated when compared to the prior CT scan. On the prior CT scan, the liver is markedly enlarged. The liver demonstrates increased echogenicity which is commonly seen with fatty infiltration. No focal hepatic abnormalities are identified. Doppler imaging reveals patency of the portal vein and normal hepatopedal flow. The gallbladder is surgically absent. There is no evidence of biliary ductal dilatation. The common bile duct measures approximately 3.4 mm in diameter. The right kidney is normal in size, shape and echogenicity without hydronephrosis or definite nephrolithiasis. The right kidney measures 9.4 cm in length. There is no evidence of free fluid in the abdomen. The pancreas is not well visualized on this examination due to bowel gas and patient body habitus. The proximal aorta is normal in caliber and contour. The mid and distal aorta are not well visualized. IMPRESSION: 1. Overall, technically limited examination due to bowel gas, patient body habitus and limited penetration related to a diffusely fatty liver. 2. Remote cholecystectomy without evidence of biliary ductal dilatation.
[2018-12-06 03:13] LABS: FREE T4 (FREE THYROXINE) 2.27 ng/dL (0.78-2.19)
[2018-12-06 03:27] LABS: THYROID STIMULATING HORMONE 3.07 uIU/mL (0.47-4.68)
[2018-12-06] MEDS ORDERED: DEXTROSE 5%-LACTATED RINGERS 1,000 ML IV ONE (03:58)
[2018-12-06] MEDS ORDERED: CHLORPROMAZINE HCL INJ 25 MG/1 ML AMPULE IV PRN (04:49)
[2018-12-06] MEDS ORDERED: HYDRALAZINE HCL INJ/PF 20 MG/1 ML SDV IV PRN (04:49)
[2018-12-06] MEDS ORDERED: ACETAMINOPHEN 325 MG TABLET PO PRN (04:49)
[2018-12-06] MEDS ORDERED: DIAZEPAM INJ 10 MG/2 ML DISP.SYRIN IV PRN (04:49)
[2018-12-06] MEDS ORDERED: NALBUPHINE HCL INJ 10 MG/1 ML AMPULE IV PRN ×3 (04:49→05:06)
[2018-12-06] MEDS ORDERED: DEXTROSE 5%-LACTATED RINGERS 1,000 ML IV PRN ×2 (04:51→14:51)
[2018-12-06] MEDS ORDERED: DEXTROSE 10%-WATER 1,000 ML IV PRN (04:51)
[2018-12-06] MEDS ORDERED: DEXTROSE 50%-WATER 25 GM/50 ML DISP.SYRIN IV PRN ×2 (04:51)
[2018-12-06] MEDS ORDERED: GLUCAGON,HUMAN RECOMB 1 MG INJ IM PRN (04:51)
[2018-12-06] MEDS ORDERED: DEXTROSE 40% GEL 15 GM TUBE PO PRN ×2 (04:51)
[2018-12-06] MEDS ORDERED: MAG HYDROX/AL HYDROX/SIMETH SUSP 30 ML UDCUP PO PRN (04:56)
[2018-12-06] MEDS ORDERED: MAGNESIUM HYDROXIDE SUSP 30 ML UDCUP PO PRN (04:56)
--- NOTE | 2018-12-06 06:11 | PDOC H&P ---
History of Present Illness Admission Date/PCP: 12/06/2018 03:50 GLENN LOREDO MD Patient complains of: Jaundice History of Present Illness: BENNY LLANES is a 53 year old female who originally presented to the emergency room for treatment of alcohol abuse. During her course the emergency room she was noted to have severe jaundice which she apparently had not realized. She complains of drinking one half bottles of wine per day for the past 10 years and does acknowledge an accompanying mild constantly present achy right upper quadrant abdominal pain since her last surgery. She denies other accompanying or associated signs and symptoms for her alcohol abuse. She has not identified any aggravating or ameliorating factors for her alcohol abuse. In the emergency room the patient was noted to have a total bilirubin greater than 8 and a direct component of 7.9. Her alkaline phosphatase was significantly increased over previously recorded levels. Dr. Otto was consulted by the emergency room physician and recommended patient be admitted for MRCP in the morning. She was subsequently admitted for further evaluation and treatment. Past Medical History Cardiac Medical History: Reports: DVT - Left lower leg, right groin (required thrombectomy) Denies: Coronary Artery Disease, Myocardial Infarction, Hypertension, Peripheral Vascular Disease, Pulmonary Embolism Pulmonary Medical History: Denies: Asthma, Bronchitis, Chronic Obstructive Pulmonary Disease (COPD), Pneumonia, Tuberculosis EENT Medical History: Denies: Cataracts, Ears - Hearing aids Neurological Medical History: Denies: Hemorrhagic CVA, Ischemic CVA, Seizures Endocrine Medical History: Denies: Diabetes Mellitus Type 1, Diabetes Mellitus Type 2, Hyperthyroidism, Hypothyroidism Renal/ Medical History: Reports: Chronic Kidney Disease Denies: Nephrolithiasis Malignancy Medical History: Reports: None GI Medical History: Reports: Gastroesophageal Reflux Disease - ulcer Denies: Cirrhosis, Crohn's Disease, Diverticulitis, Hepatitis, Hiatal Hernia, Ulcerative Colitis Musculoskeltal Medical History: Reports: Arthritis Denies: Fibromyalgia, Gout Skin Medical History: Denies: Eczema, Psoriasis Psychiatric Medical History: Reports: Alcohol Dependency, Substance Abuse Denies: Tobacco Dependency Traumatic Medical History: Reports: None Hematology: Reports: Anemia - With GI bleed in the past Denies: Bleeding Tendencies Infectious Medical History: Reports: None Past Surgical History Past Surgical History: Reports: Section - x2, Cholecystectomy, Gastric Bypass Surgery, Herniorrhaphy, Tonsillectomy, Vascular Surgery - Thrombectomy of right groin, Other - Vena cava filter, EGD Social History Information Source: Patient Lives with: Alone Smoking Status: Never Smoker Electronic Cigarette use?: No Frequency of Alcohol Use: Heavy - 1-1/2 bottles of wine daily Hx Recreational Drug Use: Yes Drugs: Marijuana Hx Prescription Drug Abuse: No - Advance Directive Resuscitation Status: Full Code Surrogate healthcare decision maker:: Jenni Moscoso Family History Family History: CAD, DM, Hypertension, Malignancy - Oral cancer Parental Family History Reviewed: Yes Children Family History Reviewed: No Sibling(s) Family History Reviewed.: Yes Medication/Allergy Home Medications: Gabapentin [Neurontin 300 mg Capsule] 300 mg PO DAILY 09/30/18 Gabapentin [Neurontin 300 mg Capsule] 900 mg PO QHS 09/30/18 Hydrocodone/Acetaminophen [[place] 7.5-325 mg Tablet] 1 tab PO Q8HP PRN 09/30/18 Tizanidine HCl 8 mg PO QHS 09/30/18 Pantoprazole Sodium [Protonix] 40 mg PO ACBRKFST #30 tablet. 10/03/18 Acetaminophen/Diphenhydramine [Tylenol Pm Ex-Strength Caplet] 2 each PO QHS 10/20/18 Cetirizine HCl [Zyrtec 10 mg Tablet] 10 mg PO QHS 10/20/18 Diphenhydramine HCl [Benadryl Allergy] 25 mg PO QHS 10/20/18 Ciprofloxacin HCl [Cipro 500 mg Tablet] 500 mg PO Q12 #14 tablet 10/26/18 Allergies/Adverse Reactions: No Known Allergies Allergy (Verified 10/20/18 10:20) Review of Systems Constitutional: ABSENT: chills, fever(s) Eyes: ABSENT: visual disturbances, other - Eye pain Ears: ABSENT: hearing changes, other - Ear pain Nose, Mouth, and Throat: ABSENT: mouth pain, sore throat Cardiovascular: ABSENT: chest pain, palpitations Respiratory: ABSENT: cough, dyspnea Gastrointestinal: PRESENT: as per HPI, abdominal pain. ABSENT: constipation, diarrhea, nausea, vomiting Genitourinary: ABSENT: dysuria, hematuria Musculoskeletal: ABSENT: back pain, joint swelling, muscle weakness Integumentary: ABSENT: pruritus, rash Neurological: ABSENT: confusion, convulsions, focal weakness, memory loss, syncope Psychiatric: ABSENT: anxiety, depression Endocrine: ABSENT: cold intolerance, heat intolerance Hematologic/Lymphatic: ABSENT: easy bleeding, easy bruising Allergic/Immunologic: ABSENT: seasonal rhinorrhea Physical Exam Vital Signs: Temp Pulse Resp BP Pulse Ox 100.3 F 22 H 103/73 94 12/06/18 03:49 12/06/18 03:47 12/06/18 03:47 12/06/18 03:47 Intake & Output 12/04/18 12/05/18 12/06/18 23:59 23:59 23:59 Intake Total 251.2 1000 Balance 251.2 1000 Weight 108 kg General appearance: PRESENT: no acute distress, cooperative Head exam: PRESENT: atraumatic, normocephalic Eye exam: PRESENT: conjunctiva pink, scleral icterus. ABSENT: conjunctival injection Ear exam: PRESENT: normal external ear exam. ABSENT: bleeding, drainage Mouth exam: PRESENT: dry mucosa, neck supple Neck exam: ABSENT: thyromegaly, tracheal deviation Respiratory exam: PRESENT: clear to auscultation ubaldo, symmetrical, unlabored Cardiovascular exam: PRESENT: RRR. ABSENT: clicks, gallop, rubs Pulses: PRESENT: normal radial pulses, normal dorsalis pedis pul Vascular exam: PRESENT: normal capillary refill. ABSENT: pallor GI/Abdominal exam: PRESENT: normal bowel sounds, organolmegaly - Palpable hepatic margin in the right subcostal region, soft, tenderness - Minimal right upper quadrant tenderness (nonlocalizing) Rectal exam: PRESENT: deferred Extremities exam: ABSENT: joint swelling, pedal edema Musculoskeletal exam: ABSENT: deformity, dislocation Neurological exam: PRESENT: alert, oriented to person, oriented to place, oriented to time, oriented to situation, CN II-XII grossly intact. ABSENT: motor sensory deficit Psychiatric exam: PRESENT: appropriate affect, normal mood Skin exam: PRESENT: dry, intact, jaundice - Moderate to severe jaundice is noted, warm. ABSENT: rash, urticaria Results Laboratory Results: 12/05/18 22:16 12/05/18 21:55 12/05/18 12/05/18 12/05/18 21:55 21:55 21:55 WBC RBC Hgb Hct MCV MCH MCHC RDW Plt Count Seg Neutrophils % VBG pH 7.45 H VBG pCO2 32.4 L VBG HCO3 21.9 VBG Base Excess -1.3 Sodium 132.6 L Potassium 4.2 Chloride 97 L Carbon Dioxide 21 L Anion Gap 15 BUN 9 Creatinine 1.18 Est GFR ( Amer) 58 L Glucose 165 H Lactic Acid Calcium 8.1 L Total Bilirubin 8.5 H AST 116 H Alkaline Phosphatase 294 H Total Protein 6.1 L Albumin 2.4 L TSH 3.07 Free T4 2.27 H Urine Color Urine Appearance Urine pH Ur Specific [place] Urine Protein Urine Glucose (UA) Urine Ketones Urine Blood Urine Nitrite Ur Leukocyte Esterase Urine WBC (Auto) Urine RBC (Auto) 12/05/18 12/06/18 12/06/18 22:16 00:25 03:05 WBC 3.1 L RBC 3.62 L Hgb 13.4 Hct 40.7 MCV 112 H MCH 36.8 H MCHC 32.8 RDW 17.3 H Plt Count 229 Seg Neutrophils % Not Reportable VBG pH VBG pCO2 VBG HCO3 VBG Base Excess Sodium Potassium Chloride Carbon Dioxide Anion Gap BUN Creatinine Est GFR ( Amer) Glucose Lactic Acid 3.4 H Calcium Total Bilirubin AST Alkaline Phosphatase Total Protein Albumin TSH Free T4 Urine Color VLAD Urine Appearance CLEAR Urine pH 6.0 Ur Specific [place] 1.048 Urine Protein NEGATIVE Urine Glucose (UA) NEGATIVE Urine Ketones TRACE H Urine Blood NEGATIVE Urine Nitrite NEGATIVE Ur Leukocyte Esterase NEGATIVE Urine WBC (Auto) 2 Urine RBC (Auto) 1 Impressions: Abdomen/Pelvis CT 12/05/18 23:16 IMPRESSION: Findings suggestive of focal ileus involving the proximal loops of small bowel. Follow-up is recommended. Fatty infiltrative change to the liver. Tiny left pleural effusion. TECHNICAL DOCUMENTATION: Quality ID # [id number]: Final reports with documentation of one or more dose reduction techniques (e.g., Automated exposure control, adjustment of the mA and/or kV according to patient size, use of iterative reconstruction technique) copyright 2011 [employer]- All Rights Reserved Abdomen Ultrasound 12/06/18 01:39 IMPRESSION: 1. Overall, technically limited examination due to bowel gas, patient body habitus and limited penetration related to a diffusely fatty liver. 2. Remote cholecystectomy without evidence of biliary ductal dilatation. Assessment and Plan - Diagnosis (1) Hyperbilirubinemia Is this a current diagnosis for this admission?: Yes Plan: Patient will have serial hepatic function tests performed on a daily basis. An MRCP will be ordered for the morning. Dr. Otto will be consulted for gastroenterology input. (2) Acute kidney injury (nontraumatic) Is this a current diagnosis for this admission?: Yes Plan: Patient be treated with IV fluids and her basic metabolic profile with magnesium levels will be followed on a daily basis. (3) Abdominal pain Qualifiers: Abdominal location: right upper quadrant Qualified Code(s): R10.11 - Right upper quadrant pain Is this a current diagnosis for this admission?: Yes Plan: Patient's abdominal pain will be treated with Nubain 5 to 10 mg IV every 3 hours on an as needed basis using a sliding scale for pain. (4) Chronic alcohol abuse Is this a current diagnosis for this admission?: Yes Plan: Patient will receive usual supportive and symptomatic cares during her hospital course. Abstention from alcohol use is strongly encouraged and counseled briefly at the bedside. (5) Hypoglycemia Is this a current diagnosis for this admission?: Yes Plan: Patient will be treated with IV fluid utilizing D5LR at 125 mL/h and D10W at 125 mL/h. She will have every 2 hour Accu-Cheks performed. - Time Time Spent with patient: 25-34 minutes Anticipated discharge: Home - Inpatient Certification Based on my medical assessment, after consideration of the patient's comorbidities, presenting symptoms, or acuity I expect that the services needed warrant INPATIENT care.: Yes I certify that my determination is in accordance with my understanding of Medicare's requirements for reasonable and necessary INPATIENT services [42 CFR 412.3e].: Yes Medical Necessity: Need Close Monitoring Due to Risk of Patient Decompensation, Need For IV Fluids, Risk of Complication if Not Cared For in Hospital, Risk of Diagnosis Which Will Require Inpatient Eval/Care/Monitoring
[2018-12-06] MEDS: DIAZEPAM 5 MG TABLET PO SCH ×3 (06:53→14:20)
[2018-12-06] MEDS: HEPARIN SOD (PORCINE) 5,000 UNIT/ML 1 ML VIAL SUBCUT SCH ×2 (06:57→17:12)
--- NOTE | 2018-12-06 07:31 | EKG REPORT ---
SEVERITY:- ABNORMAL ECG - SINUS TACHYCARDIA PROBABLE LEFT ATRIAL ABNORMALITY CONSIDER ANTERIOR INFARCT NONSPECIFIC T ABNORMALITIES, DIFFUSE LEADS : Confirmed by: Christiano Godoy MD 06-Dec-2018 07:31:07
--- NOTE | 2018-12-06 08:12 | PDOC CONSULTATION ---
Consultation Consult Date: 12/06/18 Provider Consulted: JIL JONES Consult reason:: Evaluate elevated LFTs status post laparoscopic cholecystectomy History of Present Illness Admission Date/PCP: 12/06/18 04:19 Patient complains of: Nausea and vomiting History of Present Illness: BENNY LLANES is a 53 year old female status post laparoscopic cholecystectomy with intraoperative cholangiogram just over a month ago. She was noted with no evidence of common bile duct stones at that time. She now returns and is noted with marked elevation of her liver function studies. Her predominant complaint upon presentation however is frequent emesis. She has a history of laparoscopic gastric bypass about 15 years ago complicated by what sounds like marginal ulcers. She has had solid food intolerance for the past couple of months. Patient is an alcoholic drinking copious amounts of wine every day for the past 10 years at least. She states that wine is the only thing she is able to hold down. She vomits her food. No hematemesis. She also has been experiencing lo wer abdominal pains for the past couple of months. She denies any fevers or chills. No known history of cirrhosis and cirrhosis was not noted on her operative report from her gallbladder surgery recently. Past Medical History Cardiac Medical History: Reports: DVT - remote h/o dvt but no history of pulmonary embolism. No anticoagulation, Other - Chronic venous stasis of lower extremities. Denies: Coronary Artery Disease, Myocardial Infarction, Hypertension, Peripheral Vascular Disease, Pulmonary Embolism Pulmonary Medical History: Reports: None Denies: Asthma, Bronchitis, Chronic Obstructive Pulmonary Disease (COPD), Pneumonia, Tuberculosis EENT Medical History: Reports: None Denies: Cataracts, Ears - Hearing aids Neurological Medical History: Reports: None Denies: Hemorrhagic CVA, Ischemic CVA, Seizures Endocrine Medical History: Reports: None Denies: Diabetes Mellitus Type 1, Diabetes Mellitus Type 2, Hyperthyroidism, Hypothyroidism Renal/ Medical History: Reports: Chronic Kidney Disease Denies: Nephrolithiasis Malignancy Medical History: Reports: None GI Medical History: Reports: Gastroesophageal Reflux Disease - ulcer, Other - History of marginal ulcers status post gastric bypass. Denies: Cirrhosis, Crohn's Disease, Diverticulitis, Hepatitis, Hiatal Hernia, Ulcerative Colitis Musculoskeltal Medical History: Reports: Arthritis - Chronic lower back pain and hip pain requiring narcotics Denies: Fibromyalgia, Gout Skin Medical History: Reports: None Denies: Eczema, Psoriasis Psychiatric Medical History: Reports: None, Alcohol Dependency, Substance Abuse Denies: Tobacco Dependency Traumatic Medical History: Reports: None Hematology: Reports: Anemia - With GI bleed in the past Denies: Bleeding Tendencies Infectious Medical History: Reports: None Past Surgical History Past Surgical History: Reports: Section - x2, Cholecystectomy, Gastric Bypass Surgery, Tonsillectomy, Vascular Surgery - Thrombectomy of right groin, Other - Vena cava filter, EGD Denies: Hysterectomy, Pacemaker Social History Lives with: Alone Smoking Status: Never Smoker Electronic Cigarette use?: No Frequency of Alcohol Use: Heavy - 1-1/2 bottles of wine daily Hx Recreational Drug Use: Yes Drugs: Marijuana Hx Prescription Drug Abuse: No - Advance Directive Resuscitation Status: Full Code Family History Family History: CAD, DM, Hypertension, Malignancy - Oral cancer Parental Family History Reviewed: Yes - Heart disease Children Family History Reviewed: Yes Sibling(s) Family History Reviewed.: Yes Medication/Allergy Home Medications: Gabapentin [Neurontin 300 mg Capsule] 300 mg PO DAILY 09/30/18 Gabapentin [Neurontin 300 mg Capsule] 900 mg PO QHS 09/30/18 Hydrocodone/Acetaminophen [[place] 7.5-325 mg Tablet] 1 tab PO Q8HP PRN 09/30/18 Tizanidine HCl 8 mg PO QHS 09/30/18 Pantoprazole Sodium [Protonix] 40 mg PO ACBRKFST #30 tablet. 10/03/18 Acetaminophen/Diphenhydramine [Tylenol Pm Ex-Strength Caplet] 2 each PO QHS 10/20/18 Cetirizine HCl [Zyrtec 10 mg Tablet] 10 mg PO QHS 10/20/18 Diphenhydramine HCl [Benadryl Allergy] 25 mg PO QHS 10/20/18 Allergies/Adverse Reactions: No Known Allergies Allergy (Verified 10/20/18 10:20) Physical Exam Vital Signs: Temp Pulse Resp BP Pulse Ox 100.3 F 31 H 95/77 L 100 12/06/18 03:49 12/06/18 07:41 12/06/18 07:41 12/06/18 07:41 Intake & Output 12/05/18 12/06/18 12/07/18 06:59 06:59 06:59 Intake Total 2361.2 Balance 2361.2 Weight 108 kg General appearance: PRESENT: no acute distress, cooperative, morbidly obese Eye exam: PRESENT: scleral icterus Neck exam: PRESENT: other - Supple with no palpable masses and no tenderness. Respiratory exam: PRESENT: clear to auscultation ubaldo Cardiovascular exam: PRESENT: tachycardia GI/Abdominal exam: PRESENT: other - Soft, morbidly obese, very mild diffuse abdominal tenderness without peritoneal signs. No stigmata of portal hypertension. Extremities exam: PRESENT: other - Bilateral lower extremity edema with skin thickening. Neurological exam: PRESENT: alert, awake Psychiatric exam: PRESENT: appropriate affect Skin exam: PRESENT: jaundice Results Laboratory Results: 12/05/18 22:16 12/05/18 21:55 12/05/18 12/05/18 12/05/18 21:55 21:55 21:55 WBC RBC Hgb Hct MCV MCH MCHC RDW Plt Count Seg Neutrophils % VBG pH 7.45 H VBG pCO2 32.4 L VBG HCO3 21.9 VBG Base Excess -1.3 Sodium 132.6 L Potassium 4.2 Chloride 97 L Carbon Dioxide 21 L Anion Gap 15 BUN 9 Creatinine 1.18 Est GFR ( Amer) 58 L Glucose 165 H Lactic Acid Calcium 8.1 L Total Bilirubin 8.5 H AST 116 H Alkaline Phosphatase 294 H Total Protein 6.1 L Albumin 2.4 L TSH 3.07 Free T4 2.27 H Urine Color Urine Appearance Urine pH Ur Specific [place] Urine Protein Urine Glucose (UA) Urine Ketones Urine Blood Urine Nitrite Ur Leukocyte Esterase Urine WBC (Auto) Urine RBC (Auto) 12/05/18 12/06/18 12/06/18 22:16 00:25 03:05 WBC 3.1 L RBC 3.62 L Hgb 13.4 Hct 40.7 MCV 112 H MCH 36.8 H MCHC 32.8 RDW 17.3 H Plt Count 229 Seg Neutrophils % Not Reportable VBG pH VBG pCO2 VBG HCO3 VBG Base Excess Sodium Potassium Chloride Carbon Dioxide Anion Gap BUN Creatinine Est GFR ( Amer) Glucose Lactic Acid 3.4 H Calcium Total Bilirubin AST Alkaline Phosphatase Total Protein Albumin TSH Free T4 Urine Color VLAD Urine Appearance CLEAR Urine pH 6.0 Ur Specific [place] 1.048 Urine Protein NEGATIVE Urine Glucose (UA) NEGATIVE Urine Ketones TRACE H Urine Blood NEGATIVE Urine Nitrite NEGATIVE Ur Leukocyte Esterase NEGATIVE Urine WBC (Auto) 2 Urine RBC (Auto) 1 Impressions: Abdomen/Pelvis CT 12/05/18 23:16 IMPRESSION: Findings suggestive of focal ileus involving the proximal loops of small bowel. Follow-up is recommended. Fatty infiltrative change to the liver. Tiny left pleural effusion. TECHNICAL DOCUMENTATION: Quality ID # 436: Final reports with documentation of one or more dose reduction techniques (e.g., Automated exposure control, adjustment of the mA and/or kV according to patient size, use of iterative reconstruction technique) copyright 2011 [employer]- All Rights Reserved Abdomen Ultrasound 12/06/18 01:39 IMPRESSION: 1. Overall, technically limited examination due to bowel gas, patient body habitus and limited penetration related to a diffusely fatty liver. 2. Remote cholecystectomy without evidence of biliary ductal dilatation. Assessment & Plan - Diagnosis (1) Hyperbilirubinemia Is this a current diagnosis for this admission?: Yes Plan: Marked elevation of her total bilirubin status post laparoscopic cholecystectomy just over a month ago, highly suspicious for retained common bile duct stones. Pending MRCP today. Will make recommendations after the study. In the meantime will need fluid resuscitation and antibiotics. (2) Emesis Is this a current diagnosis for this admission?: Yes Plan: Possibly related with her gastric bypass surgery with possible anastomotic stenosis especially with history of marginal ulcers in the past. She will require a upper endoscopy during this admission. This procedure can be done at transferred facility if she is transferred. Recommend proton pump inhibitor in the meantime. (3) Chronic alcohol abuse Is this a current diagnosis for this admission?: Yes Plan: Defer to medicine for management.
[2018-12-06 08:17] LABS: ALBUMIN 2.2 g/dL (3.5-5.0); ALKALINE PHOSPHATASE 255 U/L (38-126); ASPARTATE AMINO TRANSFERASE 107 U/L (14-36); BILIRUBIN,DIRECT 7.4 mg/dL (0.0-0.4); BILIRUBIN,TOTAL 8.8 mg/dL (0.2-1.3); TOTAL PROTEIN 5.3 g/dL (6.3-8.2)
[2018-12-06] MEDS: LORAZEPAM INJ 2 MG/1 ML VIAL IV PRN ×3 (08:18→17:53)
[2018-12-06] MEDS ORDERED: DOCUSATE SODIUM 100 MG CAPSULE PO SCH (10:00)
[2018-12-06] MEDS ORDERED: PANTOPRAZOLE SODIUM 40 MG VIAL IV SCH (10:00)
[2018-12-06] MEDS ORDERED: DEXTROSE 5%-WATER 1000 ML 1,000 ML IV PRN (11:21)
[2018-12-06] MEDS ORDERED: RINGERS SOLUTION,LACTATED 2,000 ML IV PRN (11:28)
[2018-12-06] MEDS ORDERED: METRONIDAZOLE 500 MG/NS RTU 500 MG/100 ML RTUPB IV SCH (12:00)
[2018-12-06] MEDS ORDERED: ACETAMINOPHEN 325 MG SUPP.RECT PR ONE (12:12)
[2018-12-06] MEDS ORDERED: ACETAMINOPHEN 650 MG SUPP.RECT PR ONE (12:20)
--- NOTE | 2018-12-06 12:45 | RADIOLOGY REPORT (SQ) ---
EXAM DESCRIPTION: PICC INSERTION; FLUORO/CV PLACEMENT; U/S GUIDE FOR VASCULAR ACCESS COMPLETED DATE/TIME: 12/06/2018 11:50 am REASON FOR STUDY: additional access/need for multiple medications; IV ACCESS COMPARISON: None. FLUOROSCOPY TIME: 45 seconds 1 images saved to PACS. TECHNIQUE: Fluoroscopic and ultrasound guided PICC placement. LIMITATIONS: None. PROCEDURE: After written consent and assessment were obtained, the patient was brought into the fluo roscopy room and placed supine on the table. Ultrasound evaluation of potential access sites were per formed. After successfully identifying a patent left basilic vein, the left arm was prepped and drape d in a sterile fashion along with the ultrasound probe. The entry site was anesthetized with 1% lidoc adolfo. A 21 gauge 7 cm needle was advanced through the skin and into the basilic vein under live ultra sound guidance. An ultrasound image was saved to PACS confirming access site. A .018 guide wire was then inserted through the needle and into the venous system. The needle was then removed and an 11 b lade scalpel was used to make a 1cm skin incision. A 5 fr peel-away sheath was advanced over the wir e and into the venous system. A measurement was then made using the existing wire and live fluoroscop ic guidance. The wire was then removed and trimmed. The PICC was advanced through the peel-away sheat h and into the venous system. The peel-away sheath was removed and the catheter was adhered to the pa tients arm with a stat lock. The catheter was then aspirated and flushed and a sterile bandage was pl aced over the access site. A fluoroscopic spot image was saved to PACS confirming the catheter tip w ithin the superior vena cava. IMPRESSION: SUCCESSFUL PLACEMENT OF A 5 FR DUAL LUMEN 38 CM PICC IN THE LEFT BASILIC VEIN. COMMENT: Patient medication list reviewed: Yes- Quality ID# 130:Eligible professional attests to doc umenting in the medical record they obtained, updated, or reviewed the patient's current medications. . Quality ID 145: Final reports for procedures using fluoroscopy that document radiation exposure faiza thuy, or exposure time and number of fluorographic images (if radiation exposure indices are not avail able) Quality ID #76: The patient was prepped and draped using maximum sterile barrier technique including cap, mask, sterile gown, sterile gloves, a large sterile sheet, hand hygiene, and 2% Chlorhexidine fo r cutaneous antisepsis. When ultrasound is used, sterile ultrasound techniques are followed requiring sterile gel and sterile probes. TECHNICAL DOCUMENTATION: JOB ID: [id number] [employer]- All Rights Reserved rev-06/24 Reading location - IP/workstation name: [email or web address]
[2018-12-06 13:03] LABS: PATH REVIEW PATHOLOGIST REVIEWED
--- NOTE | 2018-12-06 13:45 | RADIOLOGY REPORT (SQ) ---
EXAM DESCRIPTION: MRI ABDOMEN WITHOUT COMPLETED DATE/TIME: 12/06/2018 12:58 pm REASON FOR STUDY: Hyperbilirubinemia requesting MRCP COMPARISON: Prior ultrasound, CT 12/05/2018 TECHNIQUE: Noncontrast MRCP. Source and MIP images reviewed. LIMITATIONS: None. FINDINGS: GALLBLADDER: Surgically absent. Focal 17 mm ovoid lesion adjacent to the gallbladder carmita a with fluid attenuation on all sequences likely postoperative seroma. INTRAHEPATIC DUCTS: Nondilated. EXTRAHEPATIC DUCTS: Common duct is normal caliber. No dilatation of the pancreatic duct. No ductal filling defects noted. PANCREAS: Generally homogeneous, no gross mass or significant signal alteration. No surrounding infl ammatory changes or fluid. Pancreatic duct is normal. LIVER, SPLEEN, KIDNEYS, ADRENALS: Trace perihepatic fluid. Trace perihepatic fluid within the gallbl adder fossa. VESSELS: No evidence of aneurysm. Grossly appropriate flow voids in the major vascular structures. LUNG BASES: Grossly clear. OTHER: Again seen are dilated bowel loops within the left upper quadrant. Correlation with CT dated 12/05/2018 demonstrates postsurgical change from prior well Y gastric bypass. Focal dilated small mario alberto wel loops in the left upper quadrant with associated gas fluid levels and measuring up to 3.1 cm. Mario Alberto wel loops are noted to be lateral to the transverse colon and splenic flexure highly suggestive of an internal hernia. Anasarca. IMPRESSION: 1. Postsurgical changes from the cholecystectomy. No biliary ductal dilation or defini tive evidence of choledocholithiasis. 2. Persistent dilated loops of small bowel in the left upper quadrant. Correlation with prior CT de monstrates postsurgical changes from the Mansoor-en-Y gastric bypass. There are dilated small bowel loo ps in the left upper quadrant with associated gas fluid levels compatible with an obstructive process . Findings are highly suspicious for an internal hernia given prior surgical history. Findings were discussed with Dr. Calderón at 1333 hours on 12/06/2018. TECHNICAL DOCUMENTATION: JOB ID: [id number] [employer]- All Rights Reserved Reading location - IP/workstation name: [email or web address]-
[2018-12-06 13:52] LABS: ALBUMIN 1.1 g/dL (3.5-5.0); ALKALINE PHOSPHATASE 109 U/L (38-126); ANION GAP 15 (5-19); ASPARTATE AMINO TRANSFERASE 44 U/L (14-36); BILIRUBIN,DIRECT 4.6 mg/dL (0.0-0.4); BLOOD UREA NITROGEN 3 mg/dL (7-20); CARBON DIOXIDE 12 mmol/L (22-30); CHLORIDE 105 mmol/L (98-107); TOTAL PROTEIN 2.8 g/dL (6.3-8.2)
--- NOTE | 2018-12-06 14:04 | Progress Note ---
Provider Note Provider Note: Patient is a 53-year-old female who came into the emergency room last night around 2100 hrs. with vomiting and abdominal pain. Since last night presenting to the ER patient has had several episodes of hypotension, tachycardia, hypoglycemia, and severely altered mental status. It was felt early on the patient was septic as evidenced by lactic acid level of initially 3.4 and then went up to 4.0. Clinically patient appeared to be jaundiced and her direct bilirubin was elevated at 7.4 and indirect at 8.8. Past medical history is pertinent for the fact that about a month ago patient underwent a laparoscopic cholecystectomy. Initially it was felt that the patient may be septic as well as jaundice on the basis of a retained common bile duct stone, however MRCP does not ptove this to be the case. Patient has been seen now twice by general surgery, and they feel that the patient is medically too unstable to be transferred, and that there is no current indication for exploratory surgery. Patient has a long history of daily alcohol consumption, and because of lack of obstruction being cause of patient's presentation, it is felt that her clinical demise is on the basis of liver failure possibly secondary to alcohol abuse. I spoke to the hospital stock mixer, after , earlier this morning and we discussed treating the patient's sepsis. Now with the patient's worsening condition and failure to stabilize, Dr. Man has graciously agreed to accept the patient in the ICU. General surgery will be more than happy to reconsult should a surgical situation arise. Patient's prognosis is poor due to her rapid decline and probable underlying pathology.
[2018-12-06 14:07] LABS: GLUCOSE 42 mg/dL (75-110)
[2018-12-06 14:09] LABS: CALCIUM 6.6 mg/dL (8.4-10.2)
[2018-12-06 14:14] LABS: BILIRUBIN,TOTAL 5.3 mg/dL (0.2-1.3)
[2018-12-06] MEDS ORDERED: IPRATROPIUM/ALBUTEROL 0.5-2.5 MG/3 ML AMPUL NEB PRN (14:36)
[2018-12-06] MEDS ORDERED: ACETAMINOPHEN 650 MG SUPP.RECT PR PRN (14:36)
--- NOTE | 2018-12-06 14:43 | Progress Note ---
Provider Note Provider Note: BENNY LLANES is a 53 year old female status post laparoscopic cholecystectomy with intraoperative cholangiogram just over a month ago. She was noted with no evidence of common bile duct stones at that time. She now returns and is noted with marked elevation of her liver function studies. Her predominant complaint upon presentation however is frequent emesis. She has a history of laparoscopic gastric bypass about 15 years ago complicated by what sounds like marginal ulcers. She has had solid food intolerance for the past couple of months. Patient is an alcoholic drinking copious amounts of wine every day for the past 10 years at least. She states that wine is the only thing she is able to hold down. She vomits her food. No hematemesis. She also has been experiencing lower abdominal pains for the past couple of months. She denies any fevers or chills. No known history of cirrhosis and cirrhosis was not noted on her operative report from her gallbladder surgery recently. Patient has had an extensive work-up in the emergency room since her admission late last evening. She initially presented with an elevated bilirubin in the 8 range and marked and elevated transaminases initial concern was from a retained common bile duct stone. However she is undergone an MRCP this morning which showed no evidence of an obstructing stone. She continues to have tachycardia and appears quite dehydrated despite fluid rehydration she exhibits anasarca on physical examination. After further discussion with radiology about her CT scan and MRCP there does appear to be some dilated loops of small bowel in the left upper quadrant that may be consistent with an internal hernia however there is no distinct evidence of mesenteric cut off or mesenteric swirling. We recently noted an elevated serum lactate level going from 4 to now 12 and She has developed more labile vital signs. At this point consideration can be given for diagnostic laparoscopy to rule out ischemic bowel however her condition currently does not allow general anesthesia. We will attempt to place the patient in the intensive care unit for rehydration and stabilization and if she improves will consider it later this evening diagnostic laparoscopy. However with her generalized poor condition her high lactic acid level , hepatic encephalopathy strong history of EtOH abuse over the last 10 years her condition is somewhat grave.
[2018-12-06] MEDS ORDERED: RINGERS SOLUTION,LACTATED 1,000 ML IV PRN (14:47)
[2018-12-06] MEDS ORDERED: RINGERS SOLUTION,LACTATED 1,000 ML IV ONE ×2 (14:49→14:51)
[2018-12-06] MEDS ORDERED: PIPERACILLIN SODIUM/TAZOBACTAM 3.375 GM in NORMAL SALINE 100 ML IV SCH (15:00)
[2018-12-06] MEDS ORDERED: VANCOMYCIN HCL 0 MG in DEXTROSE 5%-WATER 250 ML IV NR (15:00)
[2018-12-06] MEDS ORDERED: NORMAL SALINE 250 ML IV PRN ×4 (15:23→15:29)
[2018-12-06] MEDS ORDERED: NORMAL SALINE 100 ML with PANTOPRAZOLE SODIUM 80 MG IV PRN ×2 (15:28)
[2018-12-06] MEDS ORDERED: NORMAL SALINE 500 ML with OCTREOTIDE ACETATE 500 MCG IV PRN ×2 (15:29)
[2018-12-06] MEDS ORDERED: LACTULOSE SYRUP 20 GM/30 ML UDCUP PR ONE (15:30)
[2018-12-06] MEDS ORDERED: INSULIN REG, HUMAN 100 UNIT/ML 3 ML VIAL (PYX) SUBCUT SCH (16:00)
[2018-12-06] MEDS ORDERED: DEXTROSE 5%-WATER 250 ML with PHENYLEPHRINE HCL 40 MG IV PRN ×2 (16:01)
[2018-12-06 16:03] LABS: VENOUS BLOOD BASE EXCESS -3.6 mmol/L; VENOUS BLOOD PCO2 27.2 mmHg (35-63); VENOUS BLOOD PH 7.46 (7.30-7.42)
[2018-12-06 16:08] LABS: HEMATOCRIT 34.4 % (36.0-47.0); MEAN CORPUSCULAR HEMOGLOBIN 35.8 pg (27.0-33.4); MEAN CORPUSCULAR HGB CONC 32.9 g/dL (32.0-36.0); PLATELET COUNT 176 10^3/uL (150-450); RED BLOOD COUNT 3.16 10^6/uL (3.72-5.28); RED CELL DISTRIBUTION WIDTH 16.3 % (11.5-14.0); WHITE BLOOD COUNT 4.1 10^3/uL (4.0-10.5)
[2018-12-06 16:10] LABS: INTERNATIONAL RATION (INR) 1.44; PROTHROMBIN TIME 17.7 SEC (11.4-15.4)
[2018-12-06 16:11] LABS: HEMOGLOBIN 11.3 g/dL (12.0-15.5)
[2018-12-06 16:12] LABS: MEAN CORPUSCULAR VOLUME 109 fl (80-97)
--- NOTE | 2018-12-06 16:27 | CRITICAL CARE ADMISSION REPORT ---
HPI Date:: 12/06/18 Time:: 16:07 Reason for ICU Reason:: liver failure, septic shock, metabolic acidosis HPI: Pt is a 53 yo woman with cirrhosis, severe alcohol abuse, h/o gastric bypass, recent cholecystecomy who presented to the ED the evening of 12/05 with nause and vomiting and jaundice. There was a concern for a retained stone, so pt underwent an MRCP while in the ED. MRCP was negative and therefore it was deemed that no surgical intervention was warranted. Pt was intially scheduled to be admitted to the hospitalist service to a medical bed. However, she has progressively declined and has been admitted to the ICU. Upon her arrival to the ICU, she is jaundiced and obtunded. She is hypotensive with an SBP in the 80s and tachycardic. She was given IVF boluses and started on ATBX in the ED. - Diagnosis/Plan (1) Liver failure Qualifiers: Liver failure chronicity: chronic Hepatic coma status: with hepatic coma Qualified Code(s): K72.11 - Chronic hepatic failure with coma Is this a current diagnosis for this admission?: Yes (2) Cirrhosis of liver Qualifiers: Hepatic cirrhosis type: alcoholic cirrhosis Is this a current diagnosis for this admission?: Yes (3) Hepatic encephalopathy Is this a current diagnosis for this admission?: Yes (4) Metabolic acidosis Is this a current diagnosis for this admission?: Yes (5) Septic shock Is this a current diagnosis for this admission?: Yes Past Medical History Cardiac Medical History: Reports: DVT - remote h/o dvt but no history of p ulmonary embolism. No anticoagulation, Other - Chronic venous stasis of lower extremities. Denies: Coronary Artery Disease, Myocardial Infarction, Hypertension, Peripheral Vascular Disease, Pulmonary Embolism Pulmonary Medical History: Reports: None Denies: Asthma, Bronchitis, Chronic Obstructive Pulmonary Disease (COPD), Pneumonia, Tuberculosis EENT Medical History: Reports: None Denies: Cataracts, Ears - Hearing aids Neurological Medical History: Reports: None Denies: Hemorrhagic CVA, Ischemic CVA, Seizures Endocrine Medical History: Reports: None Denies: Diabetes Mellitus Type 1, Diabetes Mellitus Type 2, Hyperthyroidism, Hypothyroidism Renal/ Medical History: Reports: Chronic Kidney Disease Denies: Nephrolithiasis Malignancy Medical History: Reports: None GI Medical History: Reports: Gastroesophageal Reflux Disease - ulcer, Other - History of marginal ulcers status post gastric bypass. Denies: Cirrhosis, Crohn's Disease, Diverticulitis, Hepatitis, Hiatal Hernia, Ulcerative Colitis Musculoskeltal Medical History: Reports: Arthritis - Chronic lower back pain and hip pain requiring narcotics Denies: Fibromyalgia, Gout Skin Medical History: Reports: None Denies: Eczema, Psoriasis Psychiatric Medical History: Reports: None, Alcohol Dependency, Substance Abuse Denies: Tobacco Dependency Traumatic Medical History: Reports: None Hematology: Reports: Anemia - With GI bleed in the past Denies: Bleeding Tendencies Infectious Medical History: Reports: None Past Surgical History Past Surgical History: Reports: Section - x2, Cholecystectomy, Gastric Bypass Surgery, Herniorrhaphy, Tonsillectomy, Vascular Surgery - Thrombectomy of right groin, Other - Vena cava filter, EGD Denies: Hysterectomy, Pacemaker Social/Family History - Social History Lives with: Alone Smoking Status: Never Smoker Frequency of Alcohol Use: Heavy - 1-1/2 bottles of wine daily Hx Recreational Drug Use: Yes Drugs: Marijuana Hx Prescription Drug Abuse: No - Medication/Allergies Home Medications: Gabapentin [Neurontin 300 mg Capsule] 300 mg PO DAILY 09/30/18 Gabapentin [Neurontin 300 mg Capsule] 900 mg PO QHS 09/30/18 Hydrocodone/Acetaminophen [[place] 7.5-325 mg Tablet] 1 tab PO Q8HP PRN 09/30/18 Tizanidine HCl 8 mg PO QHS 09/30/18 Allergies/Adverse Reactions: No Known Allergies Allergy (Verified 10/20/18 10:20) Review of Systems Review of Systems: unable to obtain due to altered mental status Physical Exam Vital Signs: Temp Pulse Resp BP Pulse Ox 100.3 F 28 H 107/82 96 12/06/18 14:15 12/06/18 14:00 12/06/18 13:01 12/06/18 14:00 Intake & Output 12/05/18 12/06/18 12/07/18 06:59 06:59 06:59 Intake Total 2361.2 3000 Balance 2361.2 3000 Weight 108 kg Weight/Height Weight 108 kg Height 5 ft 2 in General appearance: PRESENT: mild distress, morbidly obese, other - obtunded, jaundiced Head exam: PRESENT: atraumatic, normocephalic Eye exam: PRESENT: scleral icterus Respiratory exam: PRESENT: decreased breath sounds Cardiovascular exam: PRESENT: tachycardia GI/Abdominal exam: PRESENT: soft, other - non-tender, non-distended Gentrourinary exam: PRESENT: indwelling catheter Extremities exam: PRESENT: other - 2+ pitting edema Neurological exam: PRESENT: other - obtunded. Arouses to pain Laboratory/Radiographs Laboratory Results: 12/06/18 13:03 12/05/18 12/05/18 12/05/18 21:55 21:55 21:55 WBC RBC Hgb Hct MCV MCH MCHC RDW Plt Count Seg Neutrophils % VBG pH 7.45 H VBG pCO2 32.4 L VBG HCO3 21.9 VBG Base Excess -1.3 Sodium 132.6 L Potassium 4.2 Chloride 97 L Carbon Dioxide 21 L Anion Gap 15 BUN 9 Creatinine 1.18 Est GFR ( Amer) 58 L Glucose 165 H Lactic Acid Calcium 8.1 L Total Bilirubin 8.5 H AST 116 H Alkaline Phosphatase 294 H Ammonia Total Protein 6.1 L Albumin 2.4 L TSH 3.07 Free T4 2.27 H Urine Color Urine Appearance Urine pH Ur Specific S [place] Urine Protein Urine Glucose (UA) Urine Ketones Urine Blood Urine Nitrite Ur Leukocyte Esterase Urine WBC (Auto) Urine RBC (Auto) 12/05/18 12/06/18 12/06/18 22:16 00:25 03:05 WBC 3.1 L RBC 3.62 L Hgb 13.4 Hct 40.7 MCV 112 H MCH 36.8 H MCHC 32.8 RDW 17.3 H Plt Count 229 Seg Neutrophils % Not Reportable VBG pH VBG pCO2 VBG HCO3 VBG Base Excess Sodium Potassium Chloride Carbon Dioxide Anion Gap BUN Creatinine Est GFR ( Amer) Glucose Lactic Acid 3.4 H Calcium Total Bilirubin AST Alkaline Phosphatase Ammonia Total Protein Albumin TSH Free T4 Urine Color VLAD Urine Appearance CLEAR Urine pH 6.0 Ur Specific S [place] 1.048 Urine Protein NEGATIVE Urine Glucose (UA) NEGATIVE Urine Ketones TRACE H Urine Blood NEGATIVE Urine Nitrite NEGATIVE Ur Leukocyte Esterase NEGATIVE Urine WBC (Auto) 2 Urine RBC (Auto) 1 12/06/18 12/06/18 12/06/18 07:27 07:27 13:03 WBC Cancelled RBC Cancelled Hgb Cancelled Hct Cancelled MCV Cancelled MCH Cancelled MCHC Cancelled RDW Cancelled Plt Count Cancelled Seg Neutrophils % Cancelled VBG pH VBG pCO2 VBG HCO3 VBG Base Excess Sodium Potassium Chloride Carbon Dioxide Anion Gap BUN Creatinine Est GFR ( Amer) Glucose Lactic Acid 4.0 H Calcium Total Bilirubin 8.8 H AST 107 H Alkaline Phosphatase 255 H Ammonia Total Protein 5.3 L Albumin 2.2 L TSH Free T4 Urine Color Urine Appearance Urine pH Ur Specific [place] Urine Protein Urine Glucose (UA) Urine Ketones Urine Blood Urine Nitrite Ur Leukocyte Esterase Urine WBC (Auto) Urine RBC (Auto) 12/06/18 12/06/18 12/06/18 13:03 13:03 13:38 WBC 2.4 L RBC 1.86 L Hgb 6.8 L D Hct 21.0 L MCV 113 H MCH 36.6 H MCHC 32.5 RDW 16.8 H Plt Count 108 L Seg Neutrophils % Not Reportable VBG pH VBG pCO2 VBG HCO3 VBG Base Excess Sodium 131.5 L Potassium 4.0 Chloride 105 Carbon Dioxide 12 L Anion Gap 15 BUN 3 L Creatinine 0.57 Est GFR ( Amer) > 60 Glucose 42 L Lactic Acid 12.4 H Calcium 6.6 L* Total Bilirubin 5.3 H D AST 44 H Alkaline Phosphatase 109 Ammonia Total Protein 2.8 L Albumin 1.1 L TSH Free T4 Urine Color Urine Appearance Urine pH Ur Specific [place] Urine Protein Urine Glucose (UA) Urine Ketones Urine Blood Urine Nitrite Ur Leukocyte Esterase Urine WBC (Auto) Urine RBC (Auto) 12/06/18 12/06/18 13:38 15:50 WBC RBC Hgb Hct MCV MCH MCHC RDW Plt Count Seg Neutrophils % VBG pH 7.46 H VBG pCO2 27.2 L VBG HCO3 19.0 L VBG Base Excess -3.6 Sodium Potassium Chloride Carbon Dioxide Anion Gap BUN Creatinine Est GFR ( Amer) Glucose Lactic Acid Calcium Total Bilirubin AST Alkaline Phosphatase Ammonia 72.9 H Total Protein Albumin TSH Free T4 Urine Color Urine Appearance Urine pH Ur Specific [place] Urine Protein Urine Glucose (UA) Urine Ketones Urine Blood Urine Nitrite Ur Leukocyte Esterase Urine WBC (Auto) Urine RBC (Auto) Impressions: Abdomen/Pelvis CT 12/05/18 23:16 IMPRESSION: Findings suggestive of focal ileus involving the proximal loops of small bowel. Follow-up is recommended. Fatty infiltrative change to the liver. Tiny left pleural effusion. TECHNICAL DOCUMENTATION: Quality ID # [id number]: Final reports with documentation of one or more dose reduction techniques (e.g., Automated exposure control, adjustment of the mA and/or kV according to patient size, use of iterative reconstruction technique) copyright 2010 [employer]- All Rights Reserved Abdomen MRI 12/06/18 00:00 IMPRESSION: 1. Postsurgical changes from the cholecystectomy. No biliary ductal dilation or definitive evidence of choledocholithiasis. 2. Persistent dilated loops of small bowel in the left upper quadrant. Correlation with prior CT demonstrates postsurgical changes from the Mansoor-en-Y gastric bypass. There are dilated small bowel loops in the left upper quadrant with associated gas fluid levels compatible with an obstructive process. Findings are highly suspicious for an internal hernia given prior surgical history. Findings were discussed with Dr. Calderón at 1333 hours on 12/06/2018. Guidance Fluoroscopy 12/06/18 00:00 IMPRESSION: SUCCESSFUL PLACEMENT OF A 5 FR DUAL LUMEN 38 CM PICC IN THE LEFT BASILIC VEIN. Interventional Vascular Procedure 12/06/18 00:00 IMPRESSION: SUCCESSFUL PLACEMENT OF A 5 FR DUAL LUMEN 38 CM PICC IN THE LEFT BASILIC VEIN. PICC Line Insertion 12/06/18 00:00 IMPRESSION: SUCCESSFUL PLACEMENT OF A 5 FR DUAL LUMEN 38 CM PICC IN THE LEFT BASILIC VEIN. Abdomen Ultrasound 12/06/18 01:39 IMPRESSION: 1. Overall, technically limited examination due to bowel gas, patient body habitus and limited penetration related to a diffusely fatty liver. 2. Remote cholecystectomy without evidence of biliary ductal dilatation. Critical Time Critical Time (minutes): 60 -: The care of a critically ill patient is dynamic. This note represents a static moment in the admission process. orders and treatments may be given simulataneously and urgentl, and time is not sales representative sales manager of the treatment process. This patient requires Critical Care secondary to life threating organ or limb dysfunction. Without the need for Critical Care services, the patient is at risk for increasid mortality and morbidity. Provider Note Provider Note: Assessment: Critically ill 53 yo woman with liver failure, alcoholic cirrhosis, hepatic encephalopathy, metabolic acidosis, septic shock. Plan: 1. Respiratory: pt is on NC. Family has made her DNR. 2. CV: hypotension and tachycardia due to septic shock. Will continue to aggressively hydrate with IVF. Will start neosynephrine. Will insert arterial line 3. GI/Surgery: MRCP negative for any stones or obstruction. s/p recent cholecystectomy. Liver failure, jaundice, hepatic encephalopathy-will start lactulose. Case extensively d/w Dr. Mckeon.Terminal prognosis. 5. ID:septic shock. Will continue vanc and zosyn. Cultures pending 6. Renal/Acid base: metabolic acidosis. Lactic acidosis due to septic shock and liver failure. Will continue to hydrate with IVF. May need a bicarbonate infusion 7. Endocrine: hypoglycemia. Continue D5LR and hypoglycemic protocol 8. Heme: Hg dropped to 6.8 from 13.4. Non yoel bleeding. Was a lab error, repeat Hg was 11.5. INR pending. 9. Prophylaxis: pt has h/o DVT and has IVC filter in place 10. Ethics: spoke to pt family in the waiting room. Her parents, sisters, and one of her sons were present. I explained that her condition was terminal due to her end-stage liver failure. They have made her DNR. Critical care time= 60 min, excluding procedures
[2018-12-06] MEDS ORDERED: PANTOPRAZOLE SODIUM 80 MG in NORMAL SALINE 100 ML IV ONE (16:30)
--- NOTE | 2018-12-06 16:51 | RADIOLOGY REPORT (SQ) ---
EXAM DESCRIPTION: KUB/ABDOMEN (SINGLE VIEW) COMPLETED DATE/TIME: 12/06/2018 4:36 pm REASON FOR STUDY: NG placement COMPARISON: MRI same day NUMBER OF VIEWS: One view. TECHNIQUE: Supine radiographic image of the abdomen acquired. LIMITATIONS: None. FINDINGS: BOWEL GAS PATTERN: Persistent dilated loops of small bowel within the left upper quadrant measuring up to 4.2 cm. CALCIFICATIONS: No suspicious calcifications. SOFT TISSUES: No gross mass or suggestion of organomegaly. HARDWARE: Nasoenteric tube tip overlies gastric fundus. Prior cholecystectomy. IVC filter overlies lower lumbar spine. BONES: No acute fracture. No worrisome bone lesions. OTHER: No other significant finding. IMPRESSION: Nasoenteric tube tip overlies gastric fundus. Persistent dilated small bowel loops in the left upper quadrant compatible with obstruction. TECHNICAL DOCUMENTATION: JOB ID: [id number] [employer]- All Rights Reserved Reading location - IP/workstation name: [email or web address]
[2018-12-06] MEDS ORDERED: ALBUMIN HUMAN 12.5 GM/50 ML RTUINJ IV SCH (17:00)
--- NOTE | 2018-12-06 17:13 | Progress Note ---
Provider Note Provider Note: Spoke with her 2 sons. They have decided to make pt Comfort Measures Only.
[2018-12-06] MEDS: MORPHINE SULFATE 10 MG/ML INJ IV PRN ×2 (17:53→21:58)
[2018-12-06] MEDS ORDERED: VANCOMYCIN HCL 1,250 MG in DEXTROSE 5%-WATER 250 ML IV SCH (18:00)
[2018-12-06] MEDS ORDERED: THIAMINE HCL 100 MG, FOLIC ACID 1 MG in NORMAL SALINE 250 ML IV ONE (22:00)
[2018-12-06] MEDS: ONDANSETRON HCL INJ/PF 4 MG/2 ML SDV IV PRN (23:02)
[2018-12-07 07:35] VITALS: BP 133/85
--- NOTE | 2018-12-07 09:06 | Progress Note ---
Provider Note Provider Note: Critical Care Progress Note. Pt is ASSOCIATE PASTOR. Awaiting transfer out of ICU.
[2018-12-07] MEDS ORDERED: NORMAL SALINE 10 ML SDV (AFTER EACH USE) IV PRN (10:30)
[2018-12-07] MEDS: MORPHINE SULFATE 10 MG/ML INJ IV PRN ×3 (10:49→22:01)
[2018-12-07] MEDS: LORAZEPAM INJ 2 MG/1 ML VIAL IV PRN ×3 (11:16→22:49)
[2018-12-07] MEDS: NORMAL SALINE 10 ML SDV (SCHEDULED) IV SCH (22:01)
[2018-12-08] MEDS: LORAZEPAM INJ 2 MG/1 ML VIAL IV PRN ×8 (00:12→22:42)
[2018-12-08] MEDS: MORPHINE SULFATE 10 MG/ML INJ IV PRN ×12 (00:12→22:20)
--- NOTE | 2018-12-08 09:19 | Progress Note ---
Provider Note Provider Note: Critical Care Progress Note 53 yo woman with liver failure, alcoholic cirrhosis, hepatic encephalopathy, metabolic acidosis, septic shock Is on comfort measures Will start scopolamine patch will consult palliative care Still awaiting transfer to a private medical bed
[2018-12-08] MEDS ORDERED: SCOPOLAMINE HYDROBROMIDE 1.5 MG PATCH.TD72 TD SCH (10:00)
[2018-12-08] MEDS: NORMAL SALINE 10 ML SDV (SCHEDULED) IV SCH ×2 (10:01→22:43)
[2018-12-08] MEDS: ONDANSETRON HCL INJ/PF 4 MG/2 ML SDV IV PRN ×2 (15:18→15:20)
[2018-12-09] MEDS: MORPHINE SULFATE 10 MG/ML INJ IV PRN ×8 (01:52→21:44)
[2018-12-09] MEDS: LORAZEPAM INJ 2 MG/1 ML VIAL IV PRN ×7 (08:28→21:44)
--- NOTE | 2018-12-09 09:58 | Progress Note ---
Provider Note Provider Note: Critical Care Progress Note 53 yo woman with liver failure, alcoholic cirrhosis, hepatic encephalopathy, metabolic acidosis, septic shock Is on comfort measures Palliative care following. Still awaiting transfer to a private medical bed
[2018-12-09] MEDS: NORMAL SALINE 10 ML SDV (SCHEDULED) IV SCH (11:27)
[2018-12-10] MEDS: LORAZEPAM INJ 2 MG/1 ML VIAL IV PRN ×6 (01:49→14:36)
[2018-12-10] MEDS: MORPHINE SULFATE 10 MG/ML INJ IV PRN ×7 (01:49→14:36)
[2018-12-10] MEDS: NORMAL SALINE 10 ML SDV (SCHEDULED) IV SCH ×2 (01:53→09:34)
--- NOTE | 2018-12-10 08:38 | Progress Note ---
Provider Note Provider Note: Critical care note. Pt remains on comfort measures. Awaiting transfer to a private bed. Family considering transfer to a Hospice facility.
--- NOTE | 2018-12-10 15:29 | Death Summary ---
Summary Date : 12/10/18 Time of :: 15:05 Resuscitation Status: Comfort Measures Only - Final Diagnosis (1) Liver failure Is this a current diagnosis for this admission?: Yes (2) Cirrhosis of liver Is this a current diagnosis for this admission?: Yes (3) Hepatic encephalopathy Is this a current diagnosis for this admission?: Yes (4) Metabolic acidosis Is this a current diagnosis for this admission?: Yes (5) Septic shock Is this a current diagnosis for this admission?: Yes Hospital Course:: Pt is a 53 yo woman with cirrhosis, severe alcohol abuse, h/o gastric bypass, recent cholecystecomy who presented to the ED the evening of 12/05 with nause and vomiting and jaundice. There was a concern for a retained stone, so pt underwent an MRCP while in the ED. MRCP was negative and therefore it was deemed that no surgical intervention was warranted. Pt was intially scheduled to be admitted to the hospitalist service to a medical bed. However, she has progressively declined and was admitted to the ICU. Upon her arrival to the ICU, she was jaundiced and obtunded. She was hypotensive with an SBP in the 80s and tachycardic. She was given IVF boluses and started on ATBX in the ED. Spoke with family and explained to them that pt's condition was terminal. They made her comfort measures only.
== END 2018-12-10 15:05 | DRG 871 ==
LOC: ER 21:04 → EH 12-06 04:19 → ICU 12-06 15:10
PROVIDERS: ADMIT Emergency Medicine; ATTEND Internal Medicine
PROC: 02HV33Z Insertion of Infusion Device into Superior Vena Cava, Percutaneous Approach (ICD-10-PCS; principal; 2018-12-06)
PROC: B518ZZA Fluoroscopy of Superior Vena Cava, Guidance (ICD-10-PCS; 2018-12-06)
PROC: B548ZZA Ultrasonography of Superior Vena Cava, Guidance (ICD-10-PCS; 2018-12-06)
DX: A41.9 Sepsis, unspecified organism (principal); R65.21 Severe sepsis with septic shock; K70.41 Alcoholic hepatic failure with coma; N17.9 Acute kidney failure, unspecified; K70.30 Alcoholic cirrhosis of liver without ascites; E80.6 Other disorders of bilirubin metabolism; F10.20 Alcohol dependence, uncomplicated; N83.209 Unspecified ovarian cyst, unspecified side; K21.9 Gastro-esophageal reflux disease without esophagitis; K29.70 Gastritis, unspecified, without bleeding; E16.2 Hypoglycemia, unspecified; Y90.0 Blood alcohol level of less than 20 mg/100 ml; E66.01 Morbid (severe) obesity due to excess calories; Z79.2 Long term (current) use of antibiotics; Z79.891 Long term (current) use of opiate analgesic; Z79.899 Other long term (current) drug therapy; Z86.718 Personal history of other venous thrombosis and embolism; Z98.84 Bariatric surgery status
CPT/HCPCS: 36415; 36569; 74018; 74177; 74181; 76705; 76937; 77001; 80053; 80076; 80307; 81001; 82140; 82803; 82962; 83605; 84439; 84443; 85025; 85610; 86850; 86870; 86900; 86901; 86902; 87040; 87070; 93005; 93010; 94640; 96361; 96365; 96367; 96375; 99285; 99291; C1769; C9113; J1610; J1642; J1644; J2060; J2270; J2354; J2405; J2543; J3230; J3370; J3411; J3490; J7030; J7040; J7050; J7060; J7120; J7121; J7620; P9047